=== PATIENT | female | born 1995 | race Two or more races ===

== ENCOUNTER 2020-01-20 13:55 | Emergency (ER) | payer MEDICAID, SELFPAY ==
[2020-01-20 16:10] VITALS: BP 110/64; PULSE 70; RESP 16; TEMP 37.2; O2SAT 100; BMI 25.4
--- NOTE | 2020-01-20 16:10 | ED_ITS ---
HPI - Weakness General Chief complaint: Weakness Stated complaint: feeling weak Time Seen by Provider: 01/20/20 16:10 Source: patient Mode of arrival: ambulatory Limitations: no limitations History of Present Illness HPI Narrative: 10 days ago had a possible test and then had spotting for 2 days Complaint: generalized weakness Onset (ago): day(s) (7) Duration: constant Severity: mild Relieving factors: none Exacerbating factors: none Related Data Allergies Allergy/AdvReac Type Severity Reaction Status Date / Time No Known Allergies Allergy Unverified 01/06/20 18:07 Review of Systems Constitutional: Constitutional: Reports no additional constitutional complaints Eyes: Eyes: Reports no additional eye complaints ENT: Denies dizziness Cardiovascular: Cardiovascular: Reports no additional cardiovascular complaints Respiratory: Respiratory: Reports no additional respiratory complaints Gastrointestinal: Gastrointestinal: Reports no additional gastrointestinal complaints Genitourinary: Genitourinary: Reports no additional female genitourinary complaints Musculoskeletal: Musculoskeletal: Reports no additional musculoskeletal complaints Integumentary/Breasts: Skin/Breast: Denies rash Neurologic: Reports system reviewed and no additional complaints, except as documented, Denies dizziness and Denies Sensory deficit (Neuro) Psychiatric: Psychiatric: Denies anxiety [facility] Past Medical History Medical History Anemia delivery delivered Hernia Surgical History Hx of appendectomy Social History Social History Alcohol intake: never Smoking Status: Never smoker Use of substances other than those prescribed or required for medical reasons: No Advance Directives: No Advance Directives Information Provided: No Physical Exam Vital Signs and I&O and Narrative: Vital Signs and I&O: Vital Signs Temp 99.0 F 01/20/20 16:10 Pulse 70 01/20/20 16:10 Resp 16 01/20/20 16:10 BP 110/64 01/20/20 16:10 Pulse Ox 100 01/20/20 16:10 Intake & Output 01/19/20 01/20/20 01/20/20 18:59 06:59 18:59 Weight 58.967 kg Body Mass Index 25.4 Const: General: healthy appearing Nutritional Appearance: average body habitus Orientation/consciousness: oriented to person and patient oriented x3 Limitations: no limitations HENMT: Head: Yes normal to inspection Ears: external ears normal and TM's normal bilaterally General nose exam: Normal external nose present Mouth: Normal oral and palatal mucosa present and oropharynx normal Throat: Yes posterior oropharynx normal Eyes: General: appearance normal, both eyes and all related structures Neck: Other: supple Neck: Yes normal visual inspection Chest: Chest palpation & inspection: normal inspection of the chest Resp: Auscultation: clear to auscultation bilaterally Cardio: Jugular venous distension: no JVD Rate: regular rate Rhythm: regular rhythm Heart sounds: S1 normal heart sound present and S2 normal heart sound present GI: Inspection: Yes normal to inspection Palpation (GI): Soft to palpation, nontender and No hepatosplenomegaly present Auscultation: normal bowel sounds : General: Yes no CVA tenderness Back/Spine/Pelvis: Back: no CVA tenderness Skin: General skin exam: no rashes or lesions noted Neuro: General: oriented to person and patient oriented x3 Cranial nerves: Yes CN's II-XII intact bilaterally Motor exam (neuro): 5/5 motor strength present throughout Sensory Exam: No Sensory deficit (Neuro) Extrem: General: Yes normal to inspection Psych: Appearance: grossly normal Course Reevaluation(s) Reevaluation #1: patient with continued anemia, not new, not will dc home Time: 18:00 MDM - Weakness MDM Narrative Medical decision making narrative: patient not , has chronic anemia Medical Records Attestation: I reviewed the patient's medical records. Lab Data Attestation: I reviewed the patient's lab results. Result diagrams: 01/20/20 16:46 01/20/20 16:46 Labs: Lab Results 01/20/20 01/20/20 01/20/20 Range/Units 16:37 16:46 16:46 WBC 6.7 (4.8-10.8) X10*3/uL RBC 3.62 L (4.20-5.50) X10*6/uL Hgb 11.2 L (12.0-16.0) g/dl Hct 33.9 L (37-47) % MCV 93.6 (80-98) fL MCH 30.9 (27.0-33.0) pg MCHC 33.0 (31.0-35.0) g/dl RDW 12.0 (11.0-16.0) % Plt Count 216 (160-400) X10*3/uL MPV 10.0 (9.4-12.3) fL Immature Gran % (Auto) 0.3 (0.0-0.4) % Neut % (Auto) 57.8 (45-73) % Lymph % (Auto) 33.0 (20-40) % Richardson % (Auto) 7.0 (2-11) % Eos % (Auto) 1.5 (0-4) % Baso % (Auto) 0.4 (0-2) % Neut # (Auto) 3.9 (2.0-8.3) X10*3/uL Lymph # (Auto) 2.2 (1.2-4.9) X10*3/uL Richardson # (Auto) 0.5 (0.1-1.2) X10*3/uL Eos # (Auto) 0.1 (0.0-0.4) X10*3/uL Baso # (Auto) 0.0 (0.0-0.2) X10*3/uL Abs Immat Gran (auto) 0.02 (0.00-0.03) X10*3/uL Absolute Nucleated RBC 0.000 (0.0-0.012) X10*3/uL Nucleated RBC % (auto) 0.0 (0.0-0.2) /100WBC Sodium 140 (135-145) mmol/L Potassium 4.2 (3.3-5.1) mmol/l Chloride 107 (96-108) mmol/L Carbon Dioxide 27 (22-29) mmol/L Anion Gap 10 L (12-20) BUN 12 (9-16) mg/dL Creatinine 0.71 (0.5-1.4) mg/dL Estim Creat Clear Calc 98.1 Estimated GFR > 60 Random Glucose 81 (60-115) mg/dL Calcium 8.9 (8.4-10.2) mg/dL Urine Color YELLOW Urine Appearance CLEAR Urine pH 6.0 (5.0-8.0) Ur Specific [place] >= 1.030 H (1.005-1.025) Urine Protein NEG (NEG-TRACE) MG/DL Urine Glucose (UA) NEG (NEG) MG/DL Urine Ketones NEG (NEG) MG/DL Urine Blood NEG (NEG) Urine Nitrite NEG (NEG) Ur Leukocyte Esterase NEG (NEG) Urine Test NEGATIVE (NEGATIVE) Discharge Plan Discharge Clinical Impression: Anemia Patient Disposition: Home, Self-Care Additional Instructions: may take a multivitamin with iron for your anemia
[2020-01-20 16:55] LABS: Glucose Urine UA NEG (NEG); Leukocyte Esterase Urine NEG (NEG); Nitrite Urine NEG (NEG); Specific Gravity - Urine >= 1.030 (1.005-1.025); Urine Blood NEG (NEG); Urine Ketones NEG (NEG); Urine Protein NEG (NEG-TRACE)
[2020-01-20 16:56] LABS: MANUAL DIFF FLAG NO
[2020-01-20 16:57] LABS: Basophils Percent Auto 0.4 % (0-2); Eosinophils Absolute Auto 0.1 X10*3/uL (0.0-0.4); Eosinophils Percent Auto 1.5 % (0-4); Hematocrit 33.9 % (37-47); Hemoglobin 11.2 g/dl (12.0-16.0); Imm Gran Abs Auto 0.02 X10*3/uL (0.00-0.03); Imm Gran Pct Auto 0.3 % (0.0-0.4); Lymphocytes Absolute Auto 2.2 X10*3/uL (1.2-4.9); Mean Corpuscular Hemoglobin 30.9 pg (27.0-33.0); Mean Corpuscular Volume 93.6 fL (80-98); Monocytes Absolute Auto 0.5 X10*3/uL (0.1-1.2); Neutrophils Absolute Auto 3.9 X10*3/uL (2.0-8.3); Neutrophils Percent Auto 57.8 % (45-73); Platelet Count 216 X10*3/uL (160-400); Red Blood Count 3.62 X10*6/uL (4.20-5.50); White Blood Count 6.7 X10*3/uL (4.8-10.8)
[2020-01-20 17:12] LABS: Appearance Urine CLEAR; Color Urine YELLOW
[2020-01-20 17:13] LABS: UPreg QC Valid YES; Urine Pregnancy NEGATIVE (NEGATIVE)
[2020-01-20 17:27] LABS: Blood Urea Nitrogen 12 mg/dL (9-16); Calcium 8.9 mg/dL (8.4-10.2); Creatinine Clr Calc Pharmacy 98.1; Estimated Glomerular Filt Rate > 60; Glucose Random 81 mg/dL (60-115)
[2020-01-20 17:44] LABS: Anion Gap 10 (12-20); Carbon Dioxide 27 mmol/L (22-29); Chloride 107 mmol/L (96-108); Potassium 4.2 mmol/l (3.3-5.1); Sodium 140 mmol/L (135-145)
== END 2020-01-20 18:40 | disposition home or self-care (01) ==
PROVIDERS: Emergency Provider Emergency Medicine; PCP Internal Medicine
DX: D64.9 Anemia, unspecified (principal); R53.1 Weakness
CPT/HCPCS: 36415; 80048; 81003; 81025; 85025; 99283

== ENCOUNTER 2020-09-10 20:15 | Emergency (ER) | payer MEDICAID, SELFPAY ==
[2020-09-10 20:55] VITALS: BP 110/54; PULSE 59; RESP 18; TEMP 36.7; O2SAT 100; BMI 22.4
[2020-09-10 21:26] LABS: MANUAL DIFF FLAG NO
[2020-09-10 21:27] LABS: Basophils Percent Auto 0.4 % (0-2); Eosinophils Absolute Auto 0.2 X10*3/uL (0.0-0.4); Eosinophils Percent Auto 2.5 % (0-4); Hematocrit 33.5 % (37-47); Hemoglobin 11.4 g/dl (12.0-16.0); Imm Gran Abs Auto 0.02 X10*3/uL (0.00-0.03); Imm Gran Pct Auto 0.3 % (0.0-0.4); Lymphocytes Absolute Auto 2.7 X10*3/uL (1.2-4.9); Lymphocytes Percent Auto 37.3 % (20-40); Mean Corpuscular Hemoglobin 31.8 pg (27.0-33.0); Mean Corpuscular Volume 93.6 fL (80-98); Mean Platelet Volume 10.3 fL (9.4-12.3); Monocytes Absolute Auto 0.4 X10*3/uL (0.1-1.2); Neutrophils Absolute Auto 3.8 X10*3/uL (2.0-8.3); Neutrophils Percent Auto 53.5 % (45-73); Platelet Count 215 X10*3/uL (160-400); Red Blood Count 3.58 X10*6/uL (4.20-5.50); Red Cell Distribution Width 12.3 % (11.0-16.0); White Blood Count 7.2 X10*3/uL (4.8-10.8)
--- NOTE | 2020-09-10 21:42 | ED_ITS ---
HPI - Female Genitourinary General Chief complaint: General Medical Stated complaint: Personal Time Seen by Provider: 09/10/20 21:41 Source: patient Mode of arrival: ambulatory Limitations: no limitations History of Present Illness HPI Narrative: chronic L pelvic pain with periods, checking to see if she is anemic hx of same in past x 3 years, has had chronic bump L lateral incision x 3 years MD elicited complaint: pelvic pain Onset (ago): day(s) (2) Location of symptoms: suprapubic Severity: mild Quality of pain: cramping Consistency: constant Vaginal discharge: none Vaginal bleeding: scant Exacerbating factors: none Relieving factors: none Associated symptoms: denies other symptoms Treatment prior to arrival: none Related Data Previous Rx's Medication Instructions Recorded cyclobenzaprine 10 mg PO TID PRN #14 tab 09/10/20 ibuprofen 600 mg PO Q6H PRN #30 tab 09/10/20 nitrofurantoin monohyd/m-cryst 100 mg PO BID 7 Days #14 cap 09/10/20 [Macrobid] Allergies Allergy/AdvReac Type Severity Reaction Status Date / Time No Known Allergies Allergy Unverified 01/06/20 18:07 Review of Systems Review of Systems: Constitutional : No Weight loss, No Fever, No Chills ENT/Mouth : No sore throat, No Rhinorrhea Eyes: No Swelling, No Redness Cardiovascular : No Chest Pain, No SOB, NoEdema Respiratory : No Cough, No Sputum, No Wheezing Gastrointestinal : no Nausea, no Vomiting, no Diarrhea, positive abdominal Pain, No Hematochezia, No Melena Genitourinary : No Dysuria, No Urinary Frequency, No Hematuria, No Urgency Musculoskeletal : No joint pain, No Myalgias, No Joint Swelling Skin : No Skin Lesions, No rash Neuro : No Weakness, No Numbness, No Dizziness, No Headache Psych : No Anxiety/Panic, No Depression Heme/Lymph: No Bruising, No Lymphadenopathy Endocrine : No Polyuria, No Polydipsia All other systems reviewed and are negative. [facility] Past Medical History Attestation statement: The following information was validated with the patient. Medical History Anemia delivery delivered Hernia Surgical History Hx of appendectomy Social History Social History Alcohol intake: never Smoking Status: Never smoker Advance Directives: No Advance Directives Information Provided: Yes Patient : No Physical Exam Vital Signs: Vital Signs: Last Vital Signs Temp 98.0 F 09/10/20 20:55 Pulse 59 09/10/20 20:55 Resp 18 09/10/20 20:55 BP 110/54 L 09/10/20 20:55 Pulse Ox 100 09/10/20 20:55 Body Mass Index 22.4 Appearance: Alert. Oriented X3. No acute distress. Eyes: Pupils equal, round and reactive to light. ENT: Pharynx normal. Neck: Normal inspection. Neck supple. CVS: Normal heart rate and rhythm. Pulses normal. Respiratory: No respiratory distress. Breath sounds normal. Abdomen: Soft and nontender. L lateral c section scar mild seroma noted no fluctuance no abscess no erythema Skin: Skin warm and dry. Normal skin color. Normal skin turgor. Extremities: No lower extremity edema. No calf ttp Neuro: Oriented X 3. No motor deficit. No sensory deficit. MDM - Female Genitourinary MDM Narrative Medical decision making narrative: 25 yo female hx of anemia with menses, HD stable today not anemic very happy, also has UTI, chronic pain at her c section scar likely seroma - at this time refer to CERTIFIED NURSE PRACTITIONER, treat UTI, stable for DC Lab Data Result diagrams: 09/10/20 21:18 09/10/20 21:18 Labs: Lab Results 09/10/20 09/10/20 09/10/20 Range/Units 21:18 21:18 21:18 WBC 7.2 (4.8-10.8) X10*3/uL RBC 3.58 L (4.20-5.50) X10*6/uL Hgb 11.4 L (12.0-16.0) g/dl Hct 33.5 L (37-47) % MCV 93.6 (80-98) fL MCH 31.8 (27.0-33.0) pg MCHC 34.0 (31.0-35.0) g/dl RDW 12.3 (11.0-16.0) % Plt Count 215 (160-400) X10*3/uL MPV 10.3 (9.4-12.3) fL Immature Gran % (Auto) 0.3 (0.0-0.4) % Neut % (Auto) 53.5 (45-73) % Lymph % (Auto) 37.3 (20-40) % [place] % (Auto) 6.0 (2-11) % Eos % (Auto) 2.5 (0-4) % Baso % (Auto) 0.4 (0-2) % Lymph # (Auto) 2.7 (1.2-4.9) X10*3/uL [place] # (Auto) 0.4 (0.1-1.2) X10*3/uL Eos # (Auto) 0.2 (0.0-0.4) X10*3/uL Baso # (Auto) 0.0 (0.0-0.2) X10*3/uL Abs Immat Gran (auto) 0.02 (0.00-0.03) X10*3/uL Absolute Neuts (auto) 3.8 (2.0-8.3) X10*3/uL Absolute Nucleated RBC 0.000 (0.0-0.012) X10*3/uL Nucleated RBC % (auto) 0.0 (0.0-0.2) /100WBC Sodium 141 (135-145) mmol/L Potassium 3.5 (3.3-5.1) mmol/L Chloride 107 (96-108) mmol/L Carbon Dioxide 27 (22-29) mmol/L Anion Gap 11 L (12-20) BUN 10 (9-16) mg/dL Creatinine 0.75 (0.5-1.4) mg/dL Estim Creat Clear Calc 82.3 Estimated GFR > 60 Random Glucose 81 (60-115) mg/dL Calcium 8.9 (8.4-10.2) mg/dL Urine Color YELLOW Urine Appearance HAZY Urine pH 6.0 (5.0-8.0) Ur Specific [place] >= 1.030 H (1.005-1.025) Urine Protein TRACE (NEG-TRACE) MG/DL Urine Glucose (UA) NEG (NEG) MG/DL Urine Ketones 5 (NEG) MG/DL Urine Blood 3+ H (NEG) Urine Nitrite POS H (NEG) Ur Leukocyte Esterase NEG (NEG) Urine RBC 15-29 H (0) /HPF Urine WBC 1-4 (0-4) /HPF Ur Squamous Epith Cells NONE /LPF Urine Bacteria 4+ /LPF Discharge Plan Discharge Clinical Impression: Dysmenorrhea, Seroma UTI (urinary tract infection) Qualifiers: Urinary tract infection type: acute cystitis Hematuria presence: with hematuria Qualified Code(s): N30.01 - Acute cystitis with hematuria Patient Disposition: Home, Self-Care Instructions: Dysmenorrhea (ED), Urinary Tract Infection in Women (ED) Additional Instructions: return to ED for any worsening symptoms or concerns please follow up with your OBGYN Prescriptions: New cyclobenzaprine 10 mg tablet 10 mg PO TID PRN (Reason: muscle spasm) Qty: 14 RF: 0 ibuprofen 600 mg tablet 600 mg PO Q6H PRN (Reason: pain) Qty: 30 RF: 0 nitrofurantoin monohyd/m-cryst [Macrobid] 100 mg capsule 100 mg PO BID 7 Days Qty: 14 RF: 0
[2020-09-10 21:45] LABS: Appearance Urine HAZY; Color Urine YELLOW; Glucose Urine UA NEG (NEG); Leukocyte Esterase Urine NEG (NEG); Nitrite Urine POS (NEG); Specific Gravity - Urine >= 1.030 (1.005-1.025); UACC Culture Trigger YES; Urine Blood 3+ (NEG); Urine Ketones 5 MG/DL (NEG); Urine Protein TRACE MG/DL (NEG-TRACE)
[2020-09-10 21:51] LABS: Bacteria Urine 4+ /LPF; UACC CULT YES
[2020-09-10 21:55] LABS: Anion Gap 11 (12-20); Blood Urea Nitrogen 10 mg/dL (9-16); Calcium 8.9 mg/dL (8.4-10.2); Carbon Dioxide 27 mmol/L (22-29); Chloride 107 mmol/L (96-108); Creatinine Clr Calc Pharmacy 82.3; Estimated Glomerular Filt Rate > 60; Glucose Random 81 mg/dL (60-115); Potassium 3.5 mmol/L (3.3-5.1); Sodium 141 mmol/L (135-145)
[2020-09-10 22:20] VITALS: BP 116/62; PULSE 62; RESP 18; O2SAT 97
[2020-09-10] MEDS: Nitrofurantoin Monohyd/M-Cryst 100 MG CAPSULE PO (22:27)
[2020-09-10] MEDS: Ibuprofen 600 MG TABLET PO (22:27)
== END 2020-09-10 22:40 | disposition home or self-care (01) ==
LOC: HO.ED 22:04
PROVIDERS: Emergency Provider Emergency Medicine; PCP Internal Medicine
DX: N94.4 Primary dysmenorrhea (principal); N30.01 Acute cystitis with hematuria; Z79.899 Other long term (current) drug therapy
CPT/HCPCS: 36415; 80048; 81001; 85025; 87086; 87088; 87186; 99284

== ENCOUNTER 2020-09-19 09:36 | Outpatient (REF) | payer MEDICAID, SELFPAY ==
--- NOTE | ~2020-09-19 | US_ITS ---
EXAMINATION: US PELVIS, LIMITED/FOLLOW UP CLINICAL INFORMATION: Worsening pain after section COMPARISON: Previous CT of the abdomen and pelvis September 2018 TECHNIQUE: Grayscale and color imaging of the left lower quadrant abdominal wall using a linear transducer FINDINGS: There is a hypoechoic slightly heterogeneous solid mass with minimal peripheral vascularity corresponding to palpable abnormality in the lower abdominal wall. This measures 2.2 x 1.3 x 1.5 cm. Appearance is nonspecific. Differential would include endometriosis related to previous section, old resolving hematoma or abscess, and desmoid tumor. This would be amenable to percutaneous ultrasound-guided biopsy if clinically indicated. No hernia is seen. US/US pelvic limited IMPRESSION: 2.2 x 1.3 x 1.5 cm heterogeneous hypoechoic soft tissue mass in the lower quadrant abdominal wall. Differential would include endometriosis related to previous surgery, old hematoma or abscess, and desmoid tumor. This would be amenable to ultrasound-guided biopsy if clinically indicated.
== END 2020-09-19 09:37 | disposition home or self-care (01) ==
LOC: HO.US 09:36
PROVIDERS: PCP Internal Medicine; Visit Provider Nurse Practitioner Primary Care
DX: R10.32 Left lower quadrant pain (principal); R19.04 Left lower quadrant abdominal swelling, mass and lump
CPT/HCPCS: 76857

== ENCOUNTER 2020-11-15 22:46 | Emergency (ER) | payer MEDICAID, SELFPAY ==
[2020-11-15 23:04] VITALS: BP 109/66; PULSE 55; RESP 18; TEMP 36.9; O2SAT 99; BMI 23.4
--- NOTE | 2020-11-16 01:09 | ED.GENADULT ---
HPI - General Adult General Chief complaint: General Medical Stated complaint: Lump on Time Seen by Provider: 11/16/20 01:09 Source: patient Mode of arrival: ambulatory Limitations: no limitations History of Present Illness HPI narrative: 25 y/o female presenting with ongoing painful mass on the left lateral aspect of her scar. She has had 2 c-sections and after her second one 3 years ago she has had a painful lump on the lateral aspect of the scar. She has had two ultrasounds of the lump with initial plans for biopsy and then plan for resection. She missed her appointment 3 days ago with her surgeon. She has been taking motrin and tylenol with no improvement in the pain. She states the pain is significantly worse when she has her menses. She denies skin changes or redness. No drainage. No fevers. She reports the pain as burning and aching. MD complaint: painful mass Onset (ago): year(s) (3) Location: abdomen Radiation: non-radiation Severity: severe Severity scale (1-10): 9 Quality: burning Pain Consistency: constant Relieving factors: none Exacerbating factors: movement Associated symptoms: denies other symptoms Treatments prior to arrival: NSAID Related Data Previous Rx's Medication Instructions Recorded cyclobenzaprine 10 mg tablet 10 mg PO TID PRN #14 tab 09/10/20 ibuprofen 600 mg tablet 600 mg PO Q6H PRN #30 tab 09/10/20 nitrofurantoin 100 mg PO BID 7 Days #14 cap 09/10/20 monohydrate/macrocrystals 100 mg capsule (Macrobid) tramadol 50 mg tablet 50 mg PO Q8H PRN #5 tab 11/16/20 Allergies Allergy/AdvReac Type Severity Reaction Status Date / Time No Known Allergies Allergy Verified 11/15/20 23:04 Review of Systems Review of Systems: Constitutional: No Fever, No Chills Respiratory: No Cough, No Sputum Gastrointestinal: No Nausea, No Vomiting, No Diarrhea, + abdominal Pain Genitourinary: No Dysuria, No Urinary Frequency, No Hematuria Musculoskeletal: No joint pain, No Myalgias Skin: + Skin Lesions, No rash Psych: + Anxiety/Panic, No Depression Heme/Lymph: No Bruising, No Lymphadenopathy PMFSH Past Medical History Medical History Anemia delivery delivered Hernia Surgical History Hx of appendectomy Social History Social History Alcohol intake: never Advance Directives: No Advance Directives Information Provided: No Patient : No Physical Exam Vital Signs: Vital Signs: Last Vital Signs Temp 98.5 F 11/15/20 23:04 Pulse 55 11/15/20 23:04 Resp 18 11/15/20 23:04 BP 109/66 11/15/20 23:04 Pulse Ox 99 11/15/20 23:04 Body Mass Index 23.4 Appearance: Alert. Oriented X3. No acute distress. Eyes: Pupils equal, round and reactive to light. ENT: Normal external inspection Neck: Normal inspection. Neck supple. CVS: Normal heart rate and rhythm. Pulses normal. Respiratory: No respiratory distress. Breath sounds normal. Abdomen: well healed caesaren section surgical scar in the pelvic region. palpable 2cm soft tissue mass on the left lateral aspect with tenderness, no warmth or erythma Skin: Skin warm and dry. Normal skin color. Normal skin turgor. No rashes. Extremities: No lower extremity edema. Neuro: Oriented X 3. Nonfocal. Course Course Course Narrative: 25 y/o female presenting with ongoing painful soft tissue mass under the left lateral aspect of her scar. Recent ultrasound on 09/19 showed a 2.2x1.3x1.5 cm soft tissue mass ddx including endometriosis, hematoma, abscess or desmoid tumor. No signs of active infection at this time. Lesion is tender to touch. Pain is persistent despite tylenol and motrin around the clock. We discussed the need for following up with her surgeon for excision for definitive diagnosis and treatment. She expressed understanding. Will give very short course of tramadol for pain as it is keeping her from sleep. She otherwise appears well and is non-toxic. 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 She will call her surgeon tomorrow to see if she can expedite excision. Stable for d/c home. Discharge Plan Discharge Clinical Impression: Mass of soft tissue of abdomen Patient Disposition: Home, Self-Care Instructions: Soft Tissue Mass (ED) Additional Instructions: Your ultrasound from September showed a soft tissue mass in the area where you are having pain. This could be a wide variety of things and to determine what it is, you need to see your doctor for planned removal. The mass does not appear to be infected at this time. 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 Continue taking ibuprofen and tylenol as needed for pain. Take the prescribed pain medication as needed for severe pain. Call your doctor tomorrow. Prescriptions: New tramadol 50 mg tablet 50 mg PO Q8H PRN (Reason: pain) Qty: 5 RF: 0 No Action cyclobenzaprine 10 mg tablet 10 mg PO TID PRN (Reason: muscle spasm) Qty: 14 RF: 0 ibuprofen 600 mg tablet 600 mg PO Q6H PRN (Reason: pain) Qty: 30 RF: 0 nitrofurantoin monohyd/m-cryst [Macrobid] 100 mg capsule 100 mg PO BID 7 Days Qty: 14 RF: 0
== END 2020-11-16 01:58 | disposition home or self-care (01) ==
LOC: HO.ED 11-16 01:32
PROVIDERS: Emergency Provider Student in an Organized Health Care Education/Training Program; PCP Internal Medicine
DX: R19.04 Left lower quadrant abdominal swelling, mass and lump (principal); Z79.899 Other long term (current) drug therapy
CPT/HCPCS: 99283

== ENCOUNTER 2021-01-16 14:24 | Emergency (ER) | payer MEDICAID, SELFPAY ==
--- NOTE | 2021-01-16 14:45 | ED_ITS ---
HPI - URI/Sore Throat General Chief Complaint: General Medical Stated Complaint: body ache, fever, headache Time Seen by Provider: 01/16/21 14:43 Source: patient Mode of arrival: ambulatory Limitations: no limitations History of Present Illness HPI Narrative: 25 yo female here with complaints of subjective fevers, WAY, cough, sore throat since Friday. Not vaccinated for COVID. Related Data Previous Rx's Medication Instructions Recorded cyclobenzaprine 10 mg tablet 10 mg PO TID PRN #14 tab 09/10/20 ibuprofen 600 mg tablet 600 mg PO Q6H PRN #30 tab 09/10/20 nitrofurantoin 100 mg PO BID 7 Days #14 cap 09/10/20 monohydrate/macrocrystals 100 mg capsule (Macrobid) tramadol 50 mg tablet 50 mg PO Q8H PRN #5 tab 11/16/20 Allergies Allergy/AdvReac Type Severity Reaction Status Date / Time No Known Allergies Allergy Verified 11/15/20 23:04 Review of Systems Review of Systems: Yes all other systems are reviewed and are negative Constitutional: Constitutional: Reports no additional constitutional complaints, Denies body ache(s), Denies chills, Reports fever(s) (subjective ), Reports headache(s) and Denies weakness Eyes: Eyes: Reports no additional eye complaints and Denies change in vision ENT: Reports system reviewed and no additional complaints, except as documented, Denies dizziness, Reports headache(s), Denies nasal congestion, Denies nasal discharge, Denies neck pain and Reports sore throat Cardiovascular: Cardiovascular: Reports no additional cardiovascular complaints, Denies chest pain, Denies leg edema and Denies dyspnea Respiratory: Respiratory: Reports no additional respiratory complaints, Reports cough and Denies dyspnea Gastrointestinal: Gastrointestinal: Reports no additional gastrointestinal complaints, Denies abdominal pain, Denies diarrhea, Denies nausea and Denies vomiting Genitourinary: Genitourinary: Reports no additional female genitourinary complaints and Denies urinary incontinence Musculoskeletal: Musculoskeletal: Reports no additional musculoskeletal complaints, Denies back pain, Denies arthralgias, Denies joint swelling, Denies neck pain, Denies numbness and Denies tingling Integumentary/Breasts: Skin/Breast: Reports system reviewed and no additional complaints, except as docu and Denies rash Neurologic: Denies Abnormal speech present, Denies dizziness, Reports headache(s), Denies numbness, Denies tingling and Denies weakness [facility] Past Medical History Attestation statement: The following information was validated with the patient. Source: old records reviewed and nursing notes reviewed Medical History Anemia delivery delivered Hernia Surgical History Hx of appendectomy Social History Social History Alcohol intake: never Advance Directives: No Advance Directives Information Provided: Yes Patient : No Physical Exam Vital Signs: Vital Signs: Last Vital Signs Temp 98.3 F 01/16/21 14:46 Pulse 95 01/16/21 14:46 Resp 18 01/16/21 14:46 BP 111/73 01/16/21 14:46 Pulse Ox 99 01/16/21 14:46 Body Mass Index 23.4 Const: General: cooperative, healthy appearing, comfortable and no acute distress Orientation/consciousness: patient oriented x3 Limitations: no limitations HENMT: Head: Yes normal to inspection Ears: hearing grossly normal bilaterally and TM's normal bilaterally General nose exam: Normal external nose present Face and sinus: Yes normal facial exam Mouth: Normal oral and palatal mucosa present Throat: Yes posterior oropharynx normal, Yes tonsils normal and Yes uvula midline Eyes: General: appearance normal, both eyes and all related structures Pupils: Equal, round and reactive pupils present Neck: Neck: Yes normal visual inspection, Yes full ROM, Yes no lymphadenopathy and Yes no meningeal signs Chest: Chest palpation & inspection: normal inspection of the chest Resp: Effort & Inspection: normal respiratory effort Auscultation: clear to auscultation bilaterally Cardio: Rate: regular rate Rhythm: regular rhythm Peripheral pulses: Peripheral pulses 2+ throughout GI: Inspection: Yes normal to inspection Palpation (GI): Soft to palpation and nontender Auscultation: normal bowel sounds Back/Spine/Pelvis: Thoracic/Lumbar Spine: thoracic and lumbar spine normal to inspection Skin: General skin exam: no rashes or lesions noted Neuro: General: patient oriented x3, no meningeal signs, no focal motor deficits and normal sensation to monofilament Cranial nerves: Yes Equal, round and reactive pupils present Cognition (Neuro): normal cognition Speech: No Abnormal speech present Gait exam (Neuro): Normal gait present Motor exam (neuro): 5/5 motor strength present throughout Extrem: General: Yes normal to inspection, Yes no pedal edema and Yes no calf tenderness Course Course Course Narrative: URI symptoms since Friday. Will send covid screen. 1520-COVID screen positive. Patient well-appearing. Vital stable. Reviewed quarantine guidelines. Reviewed worrisome signs and symptoms when to return to the emergency department. Comfortable discharge home. MDM - URI/Sore Throat Lab Data Labs: Lab Results 01/16/21 Range/Units 14:51 COVID-19 ([facility]) Positive A (Negative) COVID-19 Clin Com See Note Discharge Plan Discharge Clinical Impression: COVID-19 Patient Disposition: Home, Self-Care Instructions: COVID-19 (Coronavirus Disease 2019) (ED) Additional Instructions: Increase fluids, rest Take Motrin or Tylenol for pain or fever You must quarantine until 01/23 Prescriptions: No Action tramadol 50 mg tablet 50 mg PO Q8H PRN (Reason: pain) Qty: 5 RF: 0 cyclobenzaprine 10 mg tablet 10 mg PO TID PRN (Reason: muscle spasm) Qty: 14 RF: 0 ibuprofen 600 mg tablet 600 mg PO Q6H PRN (Reason: pain) Qty: 30 RF: 0 nitrofurantoin monohyd/m-cryst [Macrobid] 100 mg capsule 100 mg PO BID 7 Days Qty: 14 RF: 0 Referrals: Janki George MD [Primary Care Provider] - 2 days
[2021-01-16 14:46] VITALS: BP 111/73; PULSE 95; RESP 18; TEMP 36.8; O2SAT 99; BMI 23.4
[2021-01-16 15:14] LABS: COVID-19 Test Positive (Negative)
== END 2021-01-16 15:34 | disposition home or self-care (01) ==
PROVIDERS: Nurse Practitioner Family; Emergency Provider Emergency Medicine; PCP Internal Medicine
DX: U07.1 COVID-19 (principal); M79.10 Myalgia, unspecified site; R51.9 Headache, unspecified; R05 Cough; Z79.899 Other long term (current) drug therapy
CPT/HCPCS: 36415; 87635; 99283

== ENCOUNTER → 2021-04-26 14:39 | Outpatient (BNVA) | payer MEDICAID, SELFPAY | PROVIDERS: PCP Internal Medicine; Referring Provider Internal Medicine; Visit Provider Surgery | DX: R19.09 Other intra-abdominal and pelvic swelling, mass and lump (principal); Z87.19 Personal history of other diseases of the digestive system | CPT/HCPCS: 99202 ==

== ENCOUNTER 2021-05-29 11:00 | Outpatient (RCR) | payer MEDICAID, SELFPAY | END 2021-07-06 08:51 | disposition home or self-care (01) | LOC: HO.PT 11:00 | PROVIDERS: PCP Internal Medicine; Visit Provider General Practice | DX: M54.50 Low back pain, unspecified (principal) | CPT/HCPCS: 97110; 97140; 97161; 97530 ==

== ENCOUNTER 2021-06-05 12:28 | Outpatient (REF) | payer MEDICAID, SELFPAY ==
--- NOTE | ~2021-06-05 | US_ITS ---
EXAMINATION: US ABDOMEN LIMITED CLINICAL INFORMATION: Ventral hernia, bulge. Rule out recurrent hernia versus laxity of mesh. COMPARISON: CT abdomen and pelvis 10/02/2018. Ultrasound abdomen 12/13/2014 TECHNIQUE: Real-time imaging of the supraumbilical area. FINDINGS: No abdominal wall hernia or fluid collection is seen. There is linear echogenic material with acoustic shadowing seen in this region suggestive of postsurgical change/mesh. US/US abdomen limited IMPRESSION: No recurrent hernia or fluid collection seen.
== END 2021-06-05 12:29 | disposition home or self-care (01) ==
LOC: HO.US 12:28
PROVIDERS: PCP Internal Medicine; Visit Provider Surgery
DX: K43.9 Ventral hernia without obstruction or gangrene (principal)
CPT/HCPCS: 76705

== ENCOUNTER → 2021-06-14 09:01 | Outpatient (BNVA) | payer MEDICAID, SELFPAY | PROVIDERS: PCP Internal Medicine; Referring Provider Internal Medicine; Visit Provider Surgery | DX: K43.9 Ventral hernia without obstruction or gangrene (principal) | CPT/HCPCS: 99212 ==

== ENCOUNTER 2021-08-12 11:39 | Emergency (ER) | payer MEDICAID, SELFPAY ==
--- NOTE | ~2021-08-12 | XR_ITS ---
EXAMINATION: XR CHEST CLINICAL INFORMATION: Exertional dyspnea COMPARISON: Previous chest x-ray February 2019 TECHNIQUE: Frontal view of the chest was obtained. FINDINGS: No significant abnormality is noted involving the heart, lungs, mediastinum, bony thorax or soft tissues. XR/XR chest 1V IMPRESSION: Unremarkable examination.
[2021-08-12 12:05] VITALS: BP 113/67; PULSE 61; RESP 19; TEMP 36.9; O2SAT 98; BMI 23.4
[2021-08-12 12:41] LABS: COVID-19 Test Negative (Negative); IDNOW Serial# 55D5AD1C
[2021-08-12 12:42] VITALS: TEMP 36.4
[2021-08-12 12:59] LABS: Influenza A Negative (Negative); Influenza B2 Negative (Negative)
--- NOTE | 2021-08-12 13:01 | ECG_ITS ---
Test Reason : DIZZINESS Blood Pressure : / mmHG Vent. Rate : 049 BPM Atrial Rate : 049 BPM P-R Int : 170 ms QRS Dur : 092 ms QT Int : 430 ms P-R-T Axes : 044 072 061 degrees QTc Int : 388 ms Sinus bradycardia with sinus arrhythmia Otherwise normal ECG When compared with ECG of 13-MAR-2019 01:25, No significant change was found Referred By: Kaylynn Mary Electronically Signed By:NARENDRA ROSEN
[2021-08-12 13:25] LABS: MANUAL DIFF FLAG NO
[2021-08-12] MEDS: 0.9 % Sodium Chloride 1,000 ML 999 ML IV (13:26)
[2021-08-12 13:36] LABS: Basophils Percent Auto 0.2 % (0-2); Eosinophils Absolute Auto 0.1 X10*3/uL (0.0-0.4); Eosinophils Percent Auto 2.6 % (0-4); Hematocrit 36.3 % (37.0-47.0); Hemoglobin 12.1 g/dl (12.0-16.0); Imm Gran Abs Auto 0.01 X10*3/uL (0.00-0.03); Imm Gran Pct Auto 0.2 % (0.0-0.4); Lymphocytes Absolute Auto 2.4 X10*3/uL (1.2-4.9); Lymphocytes Percent Auto 44.9 % (20-40); Mean Corpuscular HGB Conc 33.3 g/dl (31.0-35.0); Mean Corpuscular Hemoglobin 30.7 pg (27.0-33.0); Mean Corpuscular Volume 92.1 fL (80.0-98.0); Mean Platelet Volume 9.8 fL (9.4-12.3); Monocytes Absolute Auto 0.3 X10*3/uL (0.1-1.2); Monocytes Percent Auto 5.7 % (2-11); Neutrophils Absolute Auto 2.5 x10*3/uL (2.0-8.3); Neutrophils Percent Auto 46.4 % (45-73); Platelet Count 217 X10*3/uL (160-400); Red Blood Count 3.94 X10*6/uL (4.20-5.50); Red Cell Distribution Width 12.6 % (11.0-16.0); White Blood Count 5.4 X10*3/uL (4.8-10.8)
[2021-08-12 13:38] VITALS: BP 112/59; BP 118/71; PULSE 47; PULSE 51
[2021-08-12 13:39] VITALS: BP 120/75; PULSE 54
[2021-08-12 13:53] LABS: Alanine Aminotransferase 11 U/L (0-31); Albumin Level 4.3 g/dL (3.5-5.0); Alkaline Phosphatase 75 U/L (39-117); Anion Gap 11 (12-20); Aspartate Amino Transferase 13 U/L (5-31); Bilirubin Direct 0.4 mg/dL (0.0-0.5); Bilirubin Total 1.1 mg/dL (0.0-1.0); Blood Urea Nitrogen 9 mg/dL (9-16); Calcium 9.4 mg/dL (8.4-10.2); Carbon Dioxide 25 mmol/L (22-29); Chloride 106 mmol/L (96-108); Creatinine Clr Calc Pharmacy 81.3; Estimated Glomerular Filt Rate > 60; Glucose Random 89 mg/dL (60-115); Magnesium 2.1 mg/dL (1.6-2.6); Potassium 4.1 mmol/L (3.3-5.1); Sodium 138 mmol/L (135-145)
--- NOTE | 2021-08-12 14:34 | ED_ITS ---
HPI - General Adult General Chief complaint: General Medical Stated complaint: Weakness/Body aches Time Seen by Provider: 08/12/21 12:57 Source: patient Mode of arrival: ambulatory History of Present Illness HPI narrative: 25-year-old female with a past medical history of anemia, hernia, s/p appendectomy, presenting to the ED complaining generalized fatigue/weakness, body aches, myalgias, intermittent lightheadedness, and diarrhea x today. Also reports exertional SOB. Denies fever, chills, chest pain, recent travel, pedal edema, calf pain, ear pain, sore throat, syncope Onset (ago): day(s) Related Data Home Medications Medication Instructions Recorded Confirmed quetiapine 50 mg tablet 50 mg PO BEDTIME 04/26/21 06/14/21 Previous Rx's Medication Instructions Recorded cyclobenzaprine 10 mg tablet 10 mg PO TID PRN #14 tab 09/10/20 ibuprofen 600 mg tablet 600 mg PO Q6H PRN #30 tab 09/10/20 nitrofurantoin 100 mg PO BID 7 Days #14 cap 09/10/20 monohydrate/macrocrystals 100 mg capsule (Macrobid) tramadol 50 mg tablet 50 mg PO Q8H PRN #5 tab 11/16/20 Allergies Allergy/AdvReac Type Severity Reaction Status Date / Time No Known Allergies Allergy Verified 11/15/20 23:04 Review of Systems Review of Systems: Constitutional: No Fever, No Chills, + Fatigue, + Malaise ENT/Mouth: No Ear Pain, No Nasal Congestion, No Sinus Pain, No Hoarseness, No sore throat, + Rhinorrhea, No Swallowing Difficulty Eyes: No Eye Pain, No Swelling, No Redness, No Vision Changes Cardiovascular: No Chest Pain, No SOB, No Dyspnea on Exertion, No Orthopnea, No Edema, No Palpitations Respiratory: No Cough, No Sputum, No Dyspnea Gastrointestinal: No Nausea, No Vomiting, + Diarrhea, No Constipation, No Abdominal pain Genitourinary: No irregular bleeding, No Dysuria, No Urinary Frequency, No Hematuria, No Flank Pain, No Urinary Flow Changes, No Hesitancy Musculoskeletal: No joint pain, + Myalgias, No Joint Swelling Skin: No Skin Lesions, No rash Neuro: + Weakness, No Numbness, No Paresthesias, No Loss of Consciousness, +intermittent lightheadedness, + Headache Yes all other systems are reviewed and are negative Neurologic: Denies Abnormal speech present [facility] Past Medical History Attestation statement: The following information was validated with the patient. Medical History Anemia delivery delivered Hernia Surgical History History of delivery (02/2013) History of hemorrhoidectomy (2015) History of umbilical hernia repair (11/17/13) History of ventral hernia repair (2018) Hx of appendectomy Family History Family History Father No problems noted. Mother No problems noted. Maternal Grandfather Cancer of unknown origin Social History Social History Alcohol intake: never Patient Tobacco Use Status: Never used Tobacco Advance Directives: No Advance Directives Information Provided: No Patient : No Physical Exam ED Vital Signs: Vital Signs - 24 hr 08/12/21 12:05 08/12/21 12:42 08/12/21 13:38 Temperature 98.4 F 97.6 F Pulse Rate 61 51 Respiratory Rate 19 Blood Pressure 113/67 118/71 Pulse Oximetry 98 08/12/21 13:39 Temperature Pulse Rate 54 Respiratory Rate Blood Pressure 120/75 Pulse Oximetry BMI result Body Mass Index 23.4 Const General: cooperative, healthy appearing, no acute distress, well developed, alert and awake Orientation/consciousness: patient oriented x3 Limitations: no limitations HENMT Head: Yes normal to inspection and Yes atraumatic Ears: hearing grossly normal bilaterally, external ears normal and TM's normal bilaterally General nose exam: Normal external nose present Face and sinus: Yes normal facial exam Mouth: Normal oral and palatal mucosa present Throat: Yes posterior oropharynx normal, Yes tonsils normal, Yes uvula midline and No peritonsillar mass Eyes General: appearance normal, both eyes and all related structures EOM: EOMs intact bilaterally Neck Neck: Yes normal visual inspection and Yes no meningeal signs Resp Effort & Inspection: normal respiratory effort and no respiratory distress Auscultation: clear to auscultation bilaterally, no rales, no rhonchi and no whe ezes Cardio Rate: regular rate Heart sounds: S1 normal heart sound present and S2 normal heart sound present GI Inspection: Yes normal to inspection Palpation (GI): Soft to palpation, nontender, no guarding and not rigid General: Yes no CVA tenderness Back/Spine/Pelvis Back: no CVA tenderness Skin Rashes: no rashes Wounds: no wounds Neuro General: patient oriented x3, gait normal, tone normal, moves all extremities, no meningeal signs, no focal motor deficits and CN's II-XI intact bilaterally Cranial nerves: Yes CN's II-XII intact bilaterally Cognition (Neuro): normal cognition Speech: No Abnormal speech present Gait exam (Neuro): Normal gait present Motor exam (neuro): 5/5 motor strength present throughout Extrem General: Yes normal to inspection Course Course Course Narrative: -1434--no leukocytosis. H&H stable. Labs otherwise unremarkable. COVID-19 and influenza negative XR chest 1V IMPRESSION: Unremarkable examination. -orthostatic vital signs negative -UA with 1+ leuk esterase, otherwise not infected Results discussed with patient including worrisome signs and symptoms and strict return precautions and need close follow-up with PCP. She verbalized understanding and feels safe to return home at this time Medical Decision Making MDM Narrative Medical decision making narrative: 25-year-old female with a past medical history of anemia, hernia, s/p appendectomy, presenting to the ED complaining generalized fatigue/weakness, body aches, myalgias, intermittent lightheadedness, and diarrhea x today. On exam VSS, NAD, well appearing, nontoxic, lungs CTA, abdomen soft/nontender, no focal neuro deficits. Concern for viral illness including COVID-19/influenza vs dehydration vs anemia. Symptoms atypical for ACS/PE Plan: EKG, labs, UA, CXR, IVF, orthostatics, re-evaluate Medical Records Medical records reviewed: Yes I reviewed the patient's medical records. Lab Data Lab results reviewed: Yes I reviewed the patient's lab results. Result diagrams: 08/12/21 13:22 08/12/21 13:22 Labs: Lab Results 08/12/21 08/12/21 08/12/21 Range/Units 12:10 12:10 13:22 WBC 5.4 (4.8-10.8) X10*3/uL RBC 3.94 L (4.20-5.50) X10*6/uL Hgb 12.1 (12.0-16.0) g/dl Hct 36.3 L (37.0-47.0) % MCV 92.1 (80.0-98.0) fL MCH 30.7 (27.0-33.0) pg MCHC 33.3 (31.0-35.0) g/dl RDW 12.6 (11.0-16.0) % Plt Count 217 (160-400) X10*3/uL MPV 9.8 (9.4-12.3) fL Immature Gran % (Auto) 0.2 (0.0-0.4) % Neut % (Auto) 46.4 (45-73) % Lymph % (Auto) 44.9 H (20-40) % [facility] % (Auto) 5.7 (2-11) % Eos % (Auto) 2.6 (0-4) % Baso % (Auto) 0.2 (0-2) % Lymph # (Auto) 2.4 (1.2-4.9) X10*3/uL [facility] # (Auto) 0.3 (0.1-1.2) X10*3/uL Eos # (Auto) 0.1 (0.0-0.4) X10*3/uL Baso # (Auto) 0.0 (0.0-0.2) X10*3/uL Abs Immat Gran (auto) 0.01 (0.00-0.03) X10*3/uL Absolute Neuts (auto) 2.5 (2.0-8.3) x10*3/uL Absolute Nucleated RBC 0.000 (0.0-0.012) X10*3/uL Nucleated RBC % (auto) 0.0 (0.0-0.2) /100WBC Sodium (135-145) mmol/L Potassium (3.3-5.1) mmol/L Chloride (96-108) mmol/L Carbon Dioxide (22-29) mmol/L Anion Gap (12-20) BUN (9-16) mg/dL Creatinine (0.5-1.4) mg/dL Estim Creat Clear Calc Estimated GFR Random Glucose (60-115) mg/dL Calcium (8.4-10.2) mg/dL Magnesium (1.6-2.6) mg/dL Total Bilirubin (0.0-1.0) mg/dL Direct Bilirubin (0.0-0.5) mg/dL AST (5-31) U/L ALT (0-31) U/L Alkaline Phosphatase (39-117) U/L Total Protein (6.5-8.0) g/dL Albumin (3.5-5.0) g/dL Urine Color Urine Appearance Urine pH (5.0-8.0) Ur Specific [place] (1.005-1.025) Urine Protein (NEG-TRACE) MG/DL Urine Glucose (UA) (NEG) MG/DL Urine Ketones (NEG) MG/DL Urine Blood (NEG) Urine Nitrite (NEG) Ur Leukocyte Esterase (NEG) Urine RBC (0) /HPF Urine WBC (0-4) /HPF Ur Squamous Epith Cells /LPF Amorphous Sediment /LPF Urine Bacteria /LPF Urine Mucus /LPF COVID-19 (DULCE MARIA) Negative (Negative) COVID-19 Clin Com See Note Influenza Type A ([facility]) Negative (Negative) Influenza Type B ([facility]) Negative (Negative) Influenza A & B Note See Note 08/12/21 08/12/21 Range/Units 13:22 14:50 WBC (4.8-10.8) X10*3/uL RBC (4.20-5.50) X10*6/uL Hgb (12.0-16.0) g/dl Hct (37.0-47.0) % MCV (80.0-98.0) fL MCH (27.0-33.0) pg MCHC (31.0-35.0) g/dl RDW (11.0-16.0) % Plt Count (160-400) X10*3/uL MPV (9.4-12.3) fL Immature Gran % (Auto) (0.0-0.4) % Neut % (Auto) (45-73) % Lymph % (Auto) (20-40) % [facility] % (Auto) (2-11) % Eos % (Auto) (0-4) % Baso % (Auto) (0-2) % Lymph # (Auto) (1.2-4.9) X10*3/uL [facility] # (Auto) (0.1-1.2) X10*3/uL Eos # (Auto) (0.0-0.4) X10*3/uL Baso # (Auto) (0.0-0.2) X10*3/uL Abs Immat Gran (auto) (0.00-0.03) X10*3/uL Absolute Neuts (auto) (2.0-8.3) x10*3/uL Absolute Nucleated RBC (0.0-0.012) X10*3/uL Nucleated RBC % (auto) (0.0-0.2) /100WBC Sodium 138 (135-145) mmol/L Potassium 4.1 (3.3-5.1) mmol/L Chloride 106 (96-108) mmol/L Carbon Dioxide 25 (22-29) mmol/L Anion Gap 11 L (12-20) BUN 9 (9-16) mg/dL Creatinine 0.76 (0.5-1.4) mg/dL Estim Creat Clear Calc 81.3 Estimated GFR > 60 Random Glucose 89 (60-115) mg/dL Calcium 9.4 (8.4-10.2) mg/dL Magnesium 2.1 (1.6-2.6) mg/dL Total Bilirubin 1.1 H (0.0-1.0) mg/dL Direct Bilirubin 0.4 (0.0-0.5) mg/dL AST 13 (5-31) U/L ALT 11 (0-31) U/L Alkaline Phosphatase 75 (39-117) U/L Total Protein 7.0 (6.5-8.0) g/dL Albumin 4.3 (3.5-5.0) g/dL Urine Color YELLOW Urine Appearance HAZY Urine pH 7.0 (5.0-8.0) Ur Specific [place] 1.020 (1.005-1.025) Urine Protein NEG (NEG-TRACE) MG/DL Urine Glucose (UA) NEG (NEG) MG/DL Urine Ketones NEG (NEG) MG/DL Urine Blood NEG (NEG) Urine Nitrite NEG (NEG) Ur Leukocyte Esterase 1+ H (NEG) Urine RBC 0-2 (0) /HPF Urine WBC 1-4 (0-4) /HPF Ur Squamous Epith Cells 1+ /LPF Amorphous Sediment TRACE /LPF Urine Bacteria 1+ /LPF Urine Mucus TRACE /LPF COVID-19 (DULCE MARIA) (Negative) COVID-19 Clin Com Influenza Type A ([facility]ISON) (Negative) Influenza Type B ([facility]) (Negative) Influenza A & B Note ECG Data Attestation: I personally reviewed and interpreted this ECG as follows: Interpretation: EKG sinus bradycardia with sinus arrhythmia at a rate of 49. No STEMI. No significant change when compared to prior EKGs. Discharge Plan Discharge Clinical Impression: Acute viral syndrome Patient Disposition: Home, Self-Care Instructions: Viral Syndrome (ED) Additional Instructions: Your blood work and imaging studies were reassuring today in the ED. you tested negative for COVID-19 and the flu. Please stay hydrated. Rest. Follow up with her doctor. If symptoms persist or worsen please return to the emergency department Prescriptions: No Action tramadol 50 mg tablet 50 mg PO Q8H PRN (Reason: pain) Qty: 5 0RF cyclobenzaprine 10 mg tablet 10 mg PO TID PRN (Reason: muscle spasm) Qty: 14 0RF ibuprofen 600 mg tablet 600 mg PO Q6H PRN (Reason: pain) Qty: 30 0RF nitrofurantoin monohyd/m-cryst [Macrobid] 100 mg capsule 100 mg PO BID 7 Days Qty: 14 0RF Rx Instructions: must administer with a meal/food quetiapine 50 mg tablet 50 mg PO BEDTIME 0RF Referrals: Janki George MD [Primary Care Provider] - 3 days
[2021-08-12 15:04] LABS: Appearance Urine HAZY; Glucose Urine UA NEG (NEG); Leukocyte Esterase Urine 1+ (NEG); Nitrite Urine NEG (NEG); UACC Culture Trigger YES; Urine Blood NEG (NEG); Urine Ketones NEG (NEG); Urine Protein NEG (NEG-TRACE)
[2021-08-12 15:09] LABS: Color Urine YELLOW
[2021-08-12 15:29] LABS: Amorphous Sediment Urine TRACE /LPF; Bacteria Urine 1+ /LPF; Mucus Urine TRACE /LPF; RBC Urine 0-2 /HPF (0); Squamous Epithelial Cell Urine 1+ /LPF
[2021-08-12 16:38] LABS: UPreg QC Valid YES; Urine Pregnancy NEGATIVE (NEGATIVE)
== END 2021-08-12 16:34 | disposition home or self-care (01) ==
PROVIDERS: Physician Assistant; Emergency Provider Emergency Medicine; PCP Internal Medicine
DX: B34.9 Viral infection, unspecified (principal); R06.00 Dyspnea, unspecified; R42 Dizziness and giddiness; M79.10 Myalgia, unspecified site; Z20.822 Contact with and (suspected) exposure to COVID-19; Z79.899 Other long term (current) drug therapy
CPT/HCPCS: 36415; 71045; 80048; 80076; 81001; 81003; 81025; 83735; 85025; 87086; 87502; 87635; 93005; 96360; 99284

== ENCOUNTER 2021-12-05 20:07 | Emergency (ER) | payer MEDICAID, SELFPAY ==
--- NOTE | ~2021-12-05 | CT_ITS ---
EXAMINATION: CT ABDOMEN AND PELVIS WITHOUT CONTRAST CLINICAL INFORMATION: Right-sided abdominal pain COMPARISON: 10/02/2018 TECHNIQUE: Multidetector volumetric imaging was performed from the superior aspect of the liver through the pubic symphysis. Sagittal and coronal reformatted images were obtained on the technologist's workstation. This CT examination was performed using dose optimization techniques as appropriate, variously including the following: *Automated exposure control *Adjustment of mA and/or kV according to patient size (this includes techniques or standardized protocols for targeted exams where dose is matched to indication/reason for exam; i.e. extremities or head) *Use of iterative reconstruction technique DLP: 388 mGy-cm FINDINGS: LUNG BASES: The visualized lung bases are unremarkable. LIVER, GALLBLADDER, AND BILIARY TREE: The liver is normal in size, shape, and attenuation. No focal hepatic lesion or biliary ductal dilatation is present. The gallbladder is unremarkable with no evidence of radiopaque gallstones, gallbladder wall thickening, or obvious pericholecystic inflammatory changes. PANCREAS: Unremarkable. SPLEEN: Unremarkable. ADRENAL GLANDS: Unremarkable. KIDNEYS AND URETERS: The kidneys are normal in size, shape, and attenuation. No hydronephrosis, hydroureter, or calculi seen. No perinephric stranding. BLADDER: Unremarkable. GASTROINTESTINAL TRACT: The stomach is unremarkable. Normal caliber of the small bowel. No obstruction. The appendix may be absent as a suture line is seen in the region of the cecum. No colonic wall thickening. Moderate diffuse colonic stool burden. No free air. Trace pelvic free fluid. ABDOMINAL WALL: No significant hernia is appreciated. Prior ventral abdominal wall hernia repair. LYMPH NODES: Normal. VASCULAR: Unremarkable. PELVIC VISCERA: Anteverted uterus. No adnexal mass. OSSEOUS STRUCTURES: No acute or suspicious osseous abnormality. CT/CT abdomen pelvis wo con IMPRESSION: No acute abnormality of the abdomen or pelvis. Moderate colonic stool burden. No inflammatory changes. Fleischner guidelines were followed.
[2021-12-05 20:35] VITALS: BP 111/62; PULSE 78; RESP 18; TEMP 36.8; O2SAT 98; BMI 24.4
[2021-12-05 21:07] LABS: MANUAL DIFF FLAG NO
[2021-12-05 21:19] LABS: Basophils Percent Auto 0.2 % (0-2); Eosinophils Absolute Auto 0.1 X10*3/uL (0.0-0.4); Eosinophils Percent Auto 0.5 % (0-4); Hematocrit 35.4 % (37.0-47.0); Imm Gran Abs Auto 0.04 X10*3/uL (0.00-0.03); Imm Gran Pct Auto 0.3 % (0.0-0.4); Lymphocytes Percent Auto 15.7 % (20-40); Mean Corpuscular HGB Conc 33.9 g/dl (31.0-35.0); Mean Corpuscular Hemoglobin 31.3 pg (27.0-33.0); Mean Corpuscular Volume 92.2 fL (80.0-98.0); Mean Platelet Volume 9.8 fL (9.4-12.3); Monocytes Absolute Auto 0.7 X10*3/uL (0.1-1.2); Monocytes Percent Auto 5.7 % (2-11); Neutrophils Absolute Auto 9.9 x10*3/uL (2.0-8.3); Neutrophils Percent Auto 77.6 % (45-73); Platelet Count 251 X10*3/uL (160-400); Red Blood Count 3.84 X10*6/uL (4.20-5.50); Red Cell Distribution Width 12.2 % (11.0-16.0); White Blood Count 12.7 X10*3/uL (4.8-10.8)
[2021-12-05 21:23] LABS: Appearance Urine Clear; Color Urine Yellow; Glucose Urine UA Negative (Negative); Leukocyte Esterase Urine Negative (Negative); Nitrite Urine Negative (Negative); PH 7.5 (5.0-8.0); Specific Gravity - Urine 1.015 (1.005-1.025); Urine Blood Negative (Negative); Urine Ketones Negative (Negative); Urine Protein Negative (Neg-Trace)
[2021-12-05 21:24] LABS: Alanine Aminotransferase 44 U/L (0-31); Albumin Level 4.4 g/dL (3.5-5.0); Alkaline Phosphatase 108 U/L (39-117); Anion Gap 13 (12-20); Aspartate Amino Transferase 35 U/L (5-31); Bilirubin Total 0.7 mg/dL (0.0-1.0); Blood Urea Nitrogen 9 mg/dL (9-16); Calcium 8.9 mg/dL (8.4-10.2); Carbon Dioxide 24 mmol/L (22-29); Chloride 106 mmol/L (96-108); Creatinine Clr Calc Pharmacy 87.3; Estimated Glomerular Filt Rate > 60; Glucose Random 102 mg/dL (60-115); Sodium 139 mmol/L (135-145); Total Protein 7.1 g/dL (6.5-8.0)
[2021-12-05 23:00] LABS: HCG Quantitative < 2 mIU/mL
[2021-12-05 23:19] VITALS: BP 108/65; PULSE 75; RESP 16; TEMP 37.1; O2SAT 97
== END 2021-12-06 01:46 | disposition left against medical advice (07) ==
LOC: HO.ED 12-06 01:47
PROVIDERS: Emergency Medicine; Emergency Provider Emergency Medicine
DX: R10.9 Unspecified abdominal pain (principal); M54.50 Low back pain, unspecified
CPT/HCPCS: 36415; 74176; 80053; 81003; 84702; 85025; 99283; 99284

== ENCOUNTER 2021-12-06 10:19 | Emergency (ER) | payer MEDICAID, SELFPAY ==
[2021-12-06 11:02] VITALS: BP 119/71; PULSE 77; RESP 18; TEMP 37.1; O2SAT 98; BMI 24.4
[2021-12-06 14:08] VITALS: BP 111/67; PULSE 78; RESP 17; TEMP 36.8; O2SAT 100
[2021-12-06] MEDS: Famotidine 20 MG TABLET PO (15:03)
[2021-12-06] MEDS: Ketorolac Tromethamine 30 MG/ML VIAL IM (15:03)
[2021-12-06] MEDS: Magnesium Hydrox/Alum Hydrox 30 ML ORAL.SUSP PO (15:03)
--- NOTE | 2021-12-06 15:08 | PC.NURSE ---
pt a&ox3, vss, medicated per provider order, pt reporting 8/10 headache, labs and urine collected by tech. no new orders at this time.
[2021-12-06 15:14] LABS: UPreg QC Valid YES; Urine Pregnancy NEGATIVE (NEGATIVE)
[2021-12-06 15:16] LABS: MANUAL DIFF FLAG NO
[2021-12-06 15:18] LABS: Basophils Percent Auto 0.1 % (0-2); Eosinophils Absolute Auto 0.1 X10*3/uL (0.0-0.4); Eosinophils Percent Auto 0.9 % (0-4); Hematocrit 35.3 % (37.0-47.0); Hemoglobin 11.8 g/dl (12.0-16.0); Imm Gran Abs Auto 0.02 X10*3/uL (0.00-0.03); Imm Gran Pct Auto 0.3 % (0.0-0.4); Lymphocytes Absolute Auto 1.8 X10*3/uL (1.2-4.9); Lymphocytes Percent Auto 22.5 % (20-40); Mean Corpuscular HGB Conc 33.4 g/dl (31.0-35.0); Mean Corpuscular Hemoglobin 31.1 pg (27.0-33.0); Mean Corpuscular Volume 93.1 fL (80.0-98.0); Mean Platelet Volume 10.1 fL (9.4-12.3); Monocytes Absolute Auto 0.5 X10*3/uL (0.1-1.2); Monocytes Percent Auto 6.3 % (2-11); Neutrophils Absolute Auto 5.4 x10*3/uL (2.0-8.3); Neutrophils Percent Auto 69.9 % (45-73); Platelet Count 242 X10*3/uL (160-400); Red Blood Count 3.79 X10*6/uL (4.20-5.50); Red Cell Distribution Width 12.1 % (11.0-16.0); White Blood Count 7.8 X10*3/uL (4.8-10.8)
[2021-12-06 15:40] LABS: Alanine Aminotransferase 36 U/L (0-31); Albumin Level 4.2 g/dL (3.5-5.0); Alkaline Phosphatase 99 U/L (39-117); Anion Gap 13 (12-20); Aspartate Amino Transferase 22 U/L (5-31); Bilirubin Direct 0.3 mg/dL (0.0-0.5); Bilirubin Total 0.5 mg/dL (0.0-1.0); Blood Urea Nitrogen 10 mg/dL (9-16); Calcium 9.2 mg/dL (8.4-10.2); Carbon Dioxide 27 mmol/L (22-29); Chloride 106 mmol/L (96-108); Creatinine Clr Calc Pharmacy 89.7; Estimated Glomerular Filt Rate > 60; Glucose Random 88 mg/dL (60-115); Lipase 17 U/L (8-78); Potassium 4.2 mmol/L (3.3-5.1); Sodium 142 mmol/L (135-145); Total Protein 6.8 g/dL (6.5-8.0)
--- NOTE | 2021-12-06 16:47 | ED_ITS ---
HPI - Abdominal Pain General Chief Complaint: Abdominal Pain Stated Complaint: stomach lower back pain Time Seen by Provider: 12/06/21 14:23 Source: patient Mode of arrival: ambulatory History of Present Illness HPI narrative: 26-year-old female with a past medical history of anemia, hernia, , presenting to the ED complaining of lower abdominal pain, nausea, and vomiting x yesterday s/p helping a friend move a heavy carpet. Admits came to ED yesterday for same symptoms, had labs and CT however LWT'd. Reports continued pain and nausea today however improved since yesterday, denies vomiting today. Denies diarrhea, fever, chills, dysuria/hematuria, vaginal bleeding/discharge, flank pain Related Data Home Medications Medication Instructions Recorded Confirmed quetiapine 50 mg tablet 50 mg PO BEDTIME 04/26/21 06/14/21 Previous Rx's Medication Instructions Recorded cyclobenzaprine 10 mg tablet 10 mg PO TID PRN muscle spasm #14 09/10/20 tabs ibuprofen 600 mg tablet 600 mg PO Q6H PRN pain #30 tabs 09/10/20 nitrofurantoin 100 mg PO BID 7 days #14 caps 09/10/20 monohydrate/macrocrystals 100 mg capsule (Macrobid) tramadol 50 mg tablet 50 mg PO Q8H PRN pain #5 tabs 11/16/20 Allergies Allergy/AdvReac Type Severity Reaction Status Date / Time No Known Allergies Allergy Verified 12/06/21 11:02 Review of Systems Review of Systems Constitutional: No Fever, No Chills, No Fatigue, No Malaise ENT/Mouth: No Ear Pain, No Nasal Congestion, No sore throat, No Rhinorrhea, No Swallowing Difficulty Eyes: No Eye Pain, No Swelling, No Redness, No Vision Changes Cardiovascular: No Chest Pain, No SOB Respiratory: No Cough, No Sputum, No Dyspnea Gastrointestinal: + Nausea, No Vomiting, No Diarrhea, No Constipation, + Abdominal pain Genitourinary: No irregular bleeding, No Dysuria, No Urinary Frequency, No Hematuria, No Flank Pain, No Urinary Flow Changes Musculoskeletal: No joint pain, No Myalgias, No Joint Swelling Skin: No Skin Lesions, No rash Neuro: No Weakness, No Headache Yes all other systems are reviewed and are negative Constitutional: Reports as per [facility] Past Medical History Attestation statement: The following information was validated with the patient. Medical History Anemia delivery delivered Hernia Surgical History History of delivery (02/2013) History of hemorrhoidectomy (2015) History of umbilical hernia repair (11/17/13) History of ventral hernia repair (2017) Hx of appendectomy Family History Family History Father No problems noted. Mother No problems noted. Maternal Grandfather Cancer of unknown origin Social History Social History Alcohol intake: never Patient Tobacco Use Status: Never used Tobacco Use of substances other than those prescribed or required for medical reasons: No Advance Directives: No Advance Directives Information Provided: No Physical Exam ED Vital Signs: Vital Signs - 24 hr 12/06/21 11:02 12/06/21 14:08 Temperature 98.7 F 98.3 F Pulse Rate 77 78 Respiratory Rate 18 17 Blood Pressure 119/71 111/67 Pulse Oximetry 98 100 Oxygen Delivery Method Room Air Room Air BMI result Body Mass Index 24.4 Const General: cooperative, healthy appearing and no acute distress Orientation/consciousness: patient oriented x3 Limitations: no limitations HENMT Head: Yes normal to inspection and Yes atraumatic Ears: hearing grossly normal bilaterally General nose exam: Normal external nose present Face and sinus: Yes normal facial exam Eyes General: appearance normal, both eyes and all related structures EOM: EOMs intact bilaterally Neck Neck: Yes normal visual inspection and Yes no meningeal signs Resp Effort & Inspection: normal respiratory effort and no respiratory distress Cardio Rate: regular rate Heart sounds: S1 normal heart sound present and S2 normal heart sound present GI Inspection: Yes normal to inspection Palpation (GI): Soft to palpation, Tenderness to palpation present (GI) (diffusely) with no rebound tenderness, no guarding and not rigid General: Yes no CVA tenderness Back/Spine/Pelvis Back: no CVA tenderness Skin Rashes: no rashes Wounds: no wounds Neuro General: patient oriented x3, tone normal and no meningeal signs Gait exam (Neuro): Normal gait present Extrem General: Yes normal to inspection Course Course Course Narrative: -1440--leukocytosis improved from yesterday. H&H at patient's baseline. Labs otherwise unremarkable/improved -patient tolerating p.o. in the ED without pain, nausea or vomiting. > Patient tolerating p.o. in the ED without difficulty. Results discussed with patient including worrisome signs and symptoms and strict return precautions, and when to return to the emergency department. They verbalized understanding and feel safe for discharge at this time. MDM - Abdominal Pain MDM Narrative Medical decision making narrative: 26-year-old female with a past medical history of anemia, hernia, , presenting to the ED complaining of lower abdominal pain, nausea, and vomiting x yesterday s/p helping a friend move a heavy carpet. On exam vital signs stable, NAD, abdomen soft with diffuse tenderness, no rebound or guarding. No CVA tenderness. Labs yesterday notable for mild leukocytosis to 12.7 and elevated AST/ALT, CT showed some constipation otherwise unremarkable. Concern for MSK pa in/strain vs gastroenteritis vs UTI. Lower suspicion for appendicitis/diverticulitis without evidence on CT yesterday. Lower suspicion for ovarian torsion vs cyst Plan: Repeat labs, repeat UA, symptomatic treatment, p.o. challenge Differential Diagnosis Differential diagnosis: Likely abdominal pain and constipation Medical Records Attestation: I reviewed the patient's medical records. Lab Data Attestation: I reviewed the patient's lab results. Result diagrams: 12/06/21 14:50 12/06/21 14:50 Labs: Lab Results 12/06/21 12/06/21 12/06/21 Range/Units 14:50 14:50 15:04 WBC 7.8 (4.8-10.8) X10*3/uL RBC 3.79 L (4.20-5.50) X10*6/uL Hgb 11.8 L (12.0-16.0) g/dl Hct 35.3 L (37.0-47.0) % MCV 93.1 (80.0-98.0) fL MCH 31.1 (27.0-33.0) pg MCHC 33.4 (31.0-35.0) g/dl RDW 12.1 (11.0-16.0) % Plt Count 242 (160-400) X10*3/uL MPV 10.1 (9.4-12.3) fL Immature Gran % (Auto) 0.3 (0.0-0.4) % Neut % (Auto) 69.9 (45-73) % Lymph % (Auto) 22.5 (20-40) % [place] % (Auto) 6.3 (2-11) % Eos % (Auto) 0.9 (0-4) % Baso % (Auto) 0.1 (0-2) % Lymph # (Auto) 1.8 (1.2-4.9) X10*3/uL [place] # (Auto) 0.5 (0.1-1.2) X10*3/uL Eos # (Auto) 0.1 (0.0-0.4) X10*3/uL Baso # (Auto) 0.0 (0.0-0.2) X10*3/uL Abs Immat Gran (auto) 0.02 (0.00-0.03) X10*3/uL Absolute Neuts (auto) 5.4 (2.0-8.3) x10*3/uL Absolute Nucleated RBC 0.000 (0.0-0.012) X10*3/uL Nucleated RBC % (auto) 0.0 (0.0-0.2) /100WBC Sodium 142 (135-145) mmol/L Potassium 4.2 (3.3-5.1) mmol/L Chloride 106 (96-108) mmol/L Carbon Dioxide 27 (22-29) mmol/L Anion Gap 13 (12-20) BUN 10 (9-16) mg/dL Creatinine 0.75 (0.5-1.4) mg/dL Estim Creat Clear Calc 89.7 Estimated GFR > 60 Random Glucose 88 (60-115) mg/dL Calcium 9.2 (8.4-10.2) mg/dL Total Bilirubin 0.5 (0.0-1.0) mg/dL Direct Bilirubin 0.3 (0.0-0.5) mg/dL AST 22 (5-31) U/L ALT 36 H (0-31) U/L Alkaline Phosphatase 99 (39-117) U/L Total Protein 6.8 (6.5-8.0) g/dL Albumin 4.2 (3.5-5.0) g/dL Lipase 17 (8-78) U/L Urine Test NEGATIVE (NEGATIVE) Discharge Plan Discharge Clinical Impression: Abdominal pain Patient Disposition: Home, Self-Care Instructions: Abdominal Pain (ED) Additional Instructions: Your blood work looks improved from yesterday. Your urine is unremarkable. CT scan yesterday showed some constipation otherwise no infection. Practice a bland diet for the next few days, avoid spicy foods, sweets, caffeine, chocolate. Stay hydrated. Rest. Follow up with her doctor If symptoms persist or worsen return to the emergency department Prescriptions: No Action tramadol 50 mg tablet 50 mg PO Q8H PRN (Reason: pain) Qty: 5 0RF cyclobenzaprine 10 mg tablet 10 mg PO TID PRN (Reason: muscle spasm) Qty: 14 0RF ibuprofen 600 mg tablet 600 mg PO Q6H PRN (Reason: pain) Qty: 30 0RF nitrofurantoin monohyd/m-cryst [Macrobid] 100 mg capsule 100 mg PO BID 7 Days Qty: 14 0RF Rx Instructions: must administer with a meal/food quetiapine 50 mg tablet 50 mg PO BEDTIME Referrals: Janki George MD [Primary Care Provider] - 3 days
== END 2021-12-06 17:24 | disposition home or self-care (01) ==
PROVIDERS: Physician Assistant; Emergency Provider Emergency Medicine; PCP Internal Medicine
DX: R10.30 Lower abdominal pain, unspecified (principal)
CPT/HCPCS: 36415; 80048; 80076; 81025; 83690; 85025; 96372; 99284; J1885

== ENCOUNTER 2021-12-18 16:24 | Emergency (ER) | payer MEDICAID, SELFPAY ==
--- NOTE | ~2021-12-18 | US_ITS ---
EXAMINATION: US ABDOMEN COMPLETE CLINICAL INFORMATION: Umbilical and right upper quadrant pain. COMPARISON: CT abdomen pelvis 12/05/2021 TECHNIQUE: Real-time imaging of the abdominal viscera. FINDINGS: PANCREAS: Normal. ABDOMINAL AORTA: The proximal, mid, and distal segments are normal in caliber. INFERIOR VENA CAVA: Visualized portions are normal. LIVER: Normal. The liver is normal in size. The liver contour is normal. Parenchymal echogenicity is normal. No focal hepatic lesion. There is no intrahepatic biliary duct dilatation seen. GALLBLADDER: Normal. The gallbladder is physiologically distended without evidence of stones, sludge, polyps, wall thickening or pericholecystic fluid. COMMON BILE DUCT: Normal in caliber measuring 0.2 cm in diameter. RIGHT KIDNEY: Normal. No hydronephrosis. No renal calculi or focal parenchymal lesions. The kidney measures 10.2 cm in maximum dimension. LEFT KIDNEY: Normal. No hydronephrosis. No renal calculi or focal parenchymal lesions. The kidney measures 9.7 cm in maximum dimension. SPLEEN: Normal. The spleen measures 8.0 cm in maximum dimension. FREE FLUID: None. US/US abdomen complete IMPRESSION: No significant abnormality is seen.
[2021-12-18 16:42] VITALS: BP 151/70; PULSE 105; RESP 18; TEMP 36.9; O2SAT 98; BMI 24.4
[2021-12-18 16:57] LABS: MANUAL DIFF FLAG NO
[2021-12-18 16:59] LABS: Basophils Percent Auto 0.1 % (0-2); Eosinophils Absolute Auto 0.1 X10*3/uL (0.0-0.4); Hematocrit 37.5 % (37.0-47.0); Hemoglobin 12.5 g/dl (12.0-16.0); Imm Gran Abs Auto 0.02 X10*3/uL (0.00-0.03); Imm Gran Pct Auto 0.3 % (0.0-0.4); Lymphocytes Absolute Auto 1.6 X10*3/uL (1.2-4.9); Lymphocytes Percent Auto 23.3 % (20-40); Mean Corpuscular HGB Conc 33.3 g/dl (31.0-35.0); Mean Corpuscular Hemoglobin 30.8 pg (27.0-33.0); Mean Corpuscular Volume 92.4 fL (80.0-98.0); Mean Platelet Volume 9.6 fL (9.4-12.3); Monocytes Absolute Auto 0.5 X10*3/uL (0.1-1.2); Monocytes Percent Auto 6.5 % (2-11); Neutrophils Absolute Auto 4.8 x10*3/uL (2.0-8.3); Neutrophils Percent Auto 68.8 % (45-73); Platelet Count 236 X10*3/uL (160-400); Red Blood Count 4.06 X10*6/uL (4.20-5.50); Red Cell Distribution Width 12.2 % (11.0-16.0); White Blood Count 6.9 X10*3/uL (4.8-10.8)
[2021-12-18 17:00] LABS: Appearance Urine Cloudy; Color Urine Dark Yellow; Glucose Urine UA Negative (Negative); Leukocyte Esterase Urine Trace (Negative); Nitrite Urine Negative (Negative); PH 5.5 (5.0-9.0); Specific Gravity - Urine >= 1.030 (1.005-1.025); Urine Blood Negative (Negative); Urine Ketones Trace mg/dL (Negative); Urine Protein Trace mg/dL (Neg-Trace)
[2021-12-18 17:01] LABS: UPreg QC Valid YES; Urine Pregnancy NEGATIVE (NEGATIVE)
[2021-12-18 17:02] LABS: Bacteria Urine None Seen (None Seen); Hyaline Casts Urine 0-2 /LPF (0-2); UACC Culture Trigger YES
[2021-12-18 17:13] LABS: Anion Gap 13 (12-20); Blood Urea Nitrogen 11 mg/dL (9-16); Calcium 9.3 mg/dL (8.4-10.2); Carbon Dioxide 26 mmol/L (22-29); Chloride 105 mmol/L (96-108); Creatinine Clr Calc Pharmacy 84.1; Estimated Glomerular Filt Rate > 60; Glucose Random 118 mg/dL (60-115); Potassium 3.7 mmol/L (3.3-5.1); Sodium 140 mmol/L (135-145)
--- NOTE | 2021-12-18 18:32 | ED_ITS ---
HPI - Abdominal Pain General Chief Complaint: Abdominal Pain Stated Complaint: back pain/abd pain/fever Source: patient Mode of arrival: ambulatory Limitations: no limitations History of Present Illness HPI narrative: 26-year-old female presents for umbilical abdominal pain that radiates to her bilateral lower quadrants. States that she was here last week for similar presentation with a negative CT scan. States that the pain is a burning pain. She does not report fevers, chills, chest pain or pressure, palpitations, shortness of breath, abdominal distention, dysuria or hematuria. MD elicited complaint: abdominal pain Onset (ago): day(s) (3) Pain Consistency: constant Location: periumbilical Severity: moderate Pain scale (0-10): 6 Quality: burning Radiation: LLQ, RLQ and suprapubic Relieving factors: nothing Associated symptoms: denies other symptoms Related Data Home Medications Medication Instructions Recorded Confirmed quetiapine 50 mg tablet 50 mg PO BEDTIME 04/26/21 06/14/21 Previous Rx's Medication Instructions Recorded cyclobenzaprine 10 mg tablet 10 mg PO TID PRN muscle spasm #14 09/10/20 tabs ibuprofen 600 mg tablet 600 mg PO Q6H PRN pain #30 tabs 09/10/20 nitrofurantoin 100 mg PO BID 7 days #14 caps 09/10/20 monohydrate/macrocrystals 100 mg capsule (Macrobid) tramadol 50 mg tablet 50 mg PO Q8H PRN pain #5 tabs 11/16/20 nitrofurantoin 100 mg PO Q12H 7 days #14 caps 12/18/21 monohydrate/macrocrystals 100 mg capsule (Macrobid) Allergies Allergy/AdvReac Type Severity Reaction Status Date / Time No Known Allergies Allergy Verified 12/06/21 11:02 Review of Systems Review of Systems Constitutional: No Fever, No Chills ENT/Mouth: No Ear Pain, No Hoarseness, No sore throat Eyes: No Eye Pain, No Swelling, No Redness, No Foreign Body Cardiovascular: No Chest Pain, No SOB Respiratory: No Cough, No Dyspnea Gastrointestinal: No Nausea, No Vomiting, No Diarrhea, positive abdominal Pain Genitourinary: No Dysuria, No Hematuria Musculoskeletal: No joint pain, No Myalgias, No Joint Swelling Skin: No Skin lacerations, No rash Neuro: No Weakness, No Numbness, No Paresthesias, No Loss of Consciousness, No Dizziness, No Headache Psych: No Anxiety/Panic, No Depression Heme/Lymph: no easy bruising, no Lymphadenopathy Endocrine: No Polyuria, No Polydipsia Yes all other systems are reviewed and are negative [facility] Past Medical History Attestation statement: The following information was validated with the patient. Source: old records reviewed Medical History Anemia delivery delivered Hernia Surgical History History of delivery (02/2013) History of hemorrhoidectomy (2015) History of umbilical hernia repair (11/17/13) History of ventral hernia repair (2017) Hx of appendectomy Family History Family History Father No problems noted. Mother No problems noted. Maternal Grandfather Cancer of unknown origin Social History Social History Alcohol intake: never Patient Tobacco Use Status: Never used Tobacco Advance Directives: No Advance Directives Information Provided: Yes Physical Exam ED Vital Signs: Vital Signs - 24 hr 12/18/21 16:42 12/18/21 18:42 Temperature 98.5 F 98.8 F Pulse Rate 105 H 78 Respiratory Rate 18 16 Blood Pressure 151/70 H 116/75 Pulse Oximetry 98 99 Oxygen Delivery Method Room Air Room Air BMI result Body Mass Index 24.4 Appearance: Alert. Oriented X3. No acute distress. Eyes: Pupils equal, round and reactive to light. Sclera nonicteric. ENT: Pharynx normal. Neck: Normal inspection. Neck supple. CVS: Tachycardic heart rate and rhythm. Pulses normal. Respiratory: No respiratory distress. Breath sounds normal. Abdomen: Soft and umbilical left lower right lower and suprapubic tenderness to palpation. No rebound, rigidity or distention. Skin: Skin warm and dry. Normal skin color. Normal skin turgor. Extremities: No lower extremity edema. Moves all extremities against resistance. Gait well-balanced well coordinated. Neuro: No motor deficit. No sensory deficit. Cranial nerves 2-12 intact. Course Course Course Narrative: 26-year-old female presents with burning abdominal pain radiating from the umbilicus to the bilateral lower quadrants and suprapubic area. Was evaluated about a week ago for the same presentation with negative CT scan of abdomen pelvis. Patient's physical exam is unremarkable, does show some tenderness to palpation but no rigidity rebound distension negative Bartlett's and McBurney's. Will order abdominal ultrasound. Urinalysis is positive for UTI. Will give some Macrobid. 20:47 abdominal ultrasound is negative for acute findings. Will discharge home with treatment for UTI. Patient verbalized understanding of and agrees to plan of care discharge home. Verbalized understanding of signs symptoms indicating need for emergent intervention. MDM - Abdominal Pain Differential Diagnosis Differential diagnosis: Likely abdominal pain, acute appendicitis, constipation and diverticulitis Medical Records Attestation: I reviewed the patient's medical records. Lab Data Attestation: I reviewed the patient's lab results. Result diagrams: 12/18/21 16:50 12/18/21 16:50 Labs: Lab Results 12/18/21 12/18/21 12/18/21 Range/Units 16:50 16:50 16:50 WBC 6.9 (4.8-10.8) X10*3/uL RBC 4.06 L (4.20-5.50) X10*6/uL Hgb 12.5 (12.0-16.0) g/dl Hct 37.5 (37.0-47.0) % MCV 92.4 (80.0-98.0) fL MCH 30.8 (27.0-33.0) pg MCHC 33.3 (31.0-35.0) g/dl RDW 12.2 (11.0-16.0) % Plt Count 236 (160-400) X10*3/uL MPV 9.6 (9.4-12.3) fL Immature Gran % (Auto) 0.3 (0.0-0.4) % Neut % (Auto) 68.8 (45-73) % Lymph % (Auto) 23.3 (20-40) % [place] % (Auto) 6.5 (2-11) % Eos % (Auto) 1.0 (0-4) % Baso % (Auto) 0.1 (0-2) % Lymph # (Auto) 1.6 (1.2-4.9) X10*3/uL [place] # (Auto) 0.5 (0.1-1.2) X10*3/uL Eos # (Auto) 0.1 (0.0-0.4) X10*3/uL Baso # (Auto) 0.0 (0.0-0.2) X10*3/uL Abs Immat Gran (auto) 0.02 (0.00-0.03) X10*3/uL Absolute Neuts (auto) 4.8 (2.0-8.3) x10*3/uL Absolute Nucleated RBC 0.000 (0.0-0.012) X10*3/uL Nucleated RBC % (auto) 0.0 (0.0-0.2) /100WBC Sodium 140 (135-145) mmol/L Potassium 3.7 (3.3-5.1) mmol/L Chloride 105 (96-108) mmol/L Carbon Dioxide 26 (22-29) mmol/L Anion Gap 13 (12-20) BUN 11 (9-16) mg/dL Creatinine 0.80 (0.5-1.4) mg/dL Estim Creat Clear Calc 84.1 Estimated GFR > 60 Random Glucose 118 H (60-115) mg/dL Calcium 9.3 (8.4-10.2) mg/dL Urine Color Dark Yellow Urine Appearance Cloudy Urine pH 5.5 (5.0-9.0) Ur Specific [place] >= 1.030 H (1.005-1.025) Urine Protein Trace (Neg-Trace) mg/dL Urine Glucose (UA) Negative (Negative) mg/dL Urine Ketones Trace (Negative) mg/dL Urine Blood Negative (Negative) Urine Nitrite Negative (Negative) Ur Leukocyte Esterase Trace H (Negative) Urine RBC 3-5 H (0-2) /HPF Urine WBC 6-10 H (0-5) /HPF Ur Squamous Epith Cells 6-10 (0-2) /HPF Urine Bacteria None Seen (None Seen) Hyaline Casts 0-2 (0-2) /LPF Urine Test (NEGATIVE) 12/18/21 Range/Units 16:50 WBC (4.8-10.8) X10*3/uL RBC (4.20-5.50) X10*6/uL Hgb (12.0-16.0) g/dl Hct (37.0-47.0) % MCV (80.0-98.0) fL MCH (27.0-33.0) pg MCHC (31.0-35.0) g/dl RDW (11.0-16.0) % Plt Count (160-400) X10*3/uL MPV (9.4-12.3) fL Immature Gran % (Auto) (0.0-0.4) % Neut % (Auto) (45-73) % Lymph % (Auto) (20-40) % [place] % (Auto) (2-11) % Eos % (Auto) (0-4) % Baso % (Auto) (0-2) % Lymph # (Auto) (1.2-4.9) X10*3/uL [place] # (Auto) (0.1-1.2) X10*3/uL Eos # (Auto) (0.0-0.4) X10*3/uL Baso # (Auto) (0.0-0.2) X10*3/uL Abs Immat Gran (auto) (0.00-0.03) X10*3/uL Absolute Neuts (auto) (2.0-8.3) x10*3/uL Absolute Nucleated RBC (0.0-0.012) X10*3/uL Nucleated RBC % (auto) (0.0-0.2) /100WBC Sodium (135-145) mmol/L Potassium (3.3-5.1) mmol/L Chloride (96-108) mmol/L Carbon Dioxide (22-29) mmol/L Anion Gap (12-20) BUN (9-16) mg/dL Creatinine (0.5-1.4) mg/dL Estim Creat Clear Calc Estimated GFR Random Glucose (60-115) mg/dL Calcium (8.4-10.2) mg/dL Urine Color Urine Appearance Urine pH (5.0-9.0) Ur Specific [place] (1.005-1.025) Urine Protein (Neg-Trace) mg/dL Urine Glucose (UA) (Negative) mg/dL Urine Ketones (Negative) mg/dL Urine Blood (Negative) Urine Nitrite (Negative) Ur Leukocyte Esterase (Negative) Urine RBC (0-2) /HPF Urine WBC (0-5) /HPF Ur Squamous Epith Cells (0-2) /HPF Urine Bacteria (None Seen) Hyaline Casts (0-2) /LPF Urine Test NEGATIVE (NEGATIVE) Imaging Data Abdominal ultrasound: Attestation: I personally reviewed and interpreted this imaging study as follows: Radiologist's impression: EXAMINATION: US ABDOMEN COMPLETE CLINICAL INFORMATION: Umbilical and right upper quadrant pain. COMPARISON: CT abdomen pelvis 12/05/2021 TECHNIQUE: Real-time imaging of the abdominal viscera. FINDINGS: PANCREAS: Normal. ABDOMINAL AORTA: The proximal, mid, and distal segments are normal in caliber. INFERIOR VENA CAVA: Visualized portions are normal. LIVER: Normal. The liver is normal in size. The liver contour is normal. Parenchymal echogenicity is normal. No focal hepatic lesion. There is no intrahepatic biliary duct dilatation seen. GALLBLADDER: Normal. The gallbladder is physiologically distended without evidence of stones, sludge, polyps, wall thickening or pericholecystic fluid. COMMON BILE DUCT: Normal in caliber measuring 0.2 cm in diameter. RIGHT KIDNEY: Normal. No hydronephrosis. No renal calculi or focal parenchymal lesions. The kidney measures 10.2 cm in maximum dimension. LEFT KIDNEY: Normal. No hydronephrosis. No renal calculi or focal parenchymal lesions. The kidney measures 9.7 cm in maximum dimension. SPLEEN: Normal. The spleen measures 8.0 cm in maximum dimension. FREE FLUID: None. US/US abdomen complete IMPRESSION: No significant abnormality is seen. Discharge Plan Discharge Clinical Impression: UTI (urinary tract infection) Patient Disposition: Home, Self-Care Instructions: Urinary Tract Infection in Women (ED) Additional Instructions: You were evaluated for abdominal pain. Ultrasound is negative for acute findings. Urinalysis positive for UTI. Please take Macrobid 100 mg twice a day for the next 7 days. Drink plenty of fluids. Thank you for choosing this emergency department for evaluation. Please follow-up with primary care physician as needed. Return to the emergency department for any new, concerning, or worsening symptoms. Prescriptions: New nitrofurantoin monohyd/m-cryst [Macrobid] 100 mg capsule 100 mg PO Q12H 7 Days Qty: 14 0RF Rx Instructions: must administer with a meal/food No Action tramadol 50 mg tablet 50 mg PO Q8H PRN (Reason: pain) Qty: 5 0RF cyclobenzaprine 10 mg tablet 10 mg PO TID PRN (Reason: muscle spasm) Qty: 14 0RF ibuprofen 600 mg tablet 600 mg PO Q6H PRN (Reason: pain) Qty: 30 0RF nitrofurantoin monohyd/m-cryst [Macrobid] 100 mg capsule 100 mg PO BID 7 Days Qty: 14 0RF Rx Instructions: must administer with a meal/food quetiapine 50 mg tablet 50 mg PO BEDTIME Stand Alone Forms: Work/School Release
[2021-12-18 18:42] VITALS: BP 116/75; PULSE 78; RESP 16; TEMP 37.1; O2SAT 99
[2021-12-18] MEDS: Nitrofurantoin Monohyd/M-Cryst 100 MG CAPSULE PO (18:51)
== END 2021-12-18 21:17 | disposition home or self-care (01) ==
PROVIDERS: Emergency Provider Emergency Medicine; PCP Internal Medicine
DX: N39.0 Urinary tract infection, site not specified (principal); R10.33 Periumbilical pain
CPT/HCPCS: 36415; 76700; 80048; 81001; 81025; 85025; 87086; 99283; 99284

== ENCOUNTER 2022-06-04 10:04 | Outpatient (REF) | payer MEDICAID, SELFPAY ==
--- NOTE | ~2022-06-04 | XR_ITS ---
EXAMINATION: XR LUMBOSACRAL SPINE CLINICAL INFORMATION: Worsening back pain with sciatica. COMPARISON: CT study of 12/05/2021 TECHNIQUE: Three views of the lumbosacral spine. FINDINGS: There are 5 nonrib-bearing lumbar vertebrae. The bony texture and alignment is satisfactory without evidence of acute fracture, spondylolisthesis, or spondylolysis. Disc spaces are maintained. Pedicles are intact. Sacroiliac joints unremarkable. XR/XR lumbar spine 2-3V IMPRESSION: No bony abnormality of the lumbar spine identified.
== END 2022-06-04 10:05 | disposition home or self-care (01) ==
LOC: HO.XRAY 10:04
PROVIDERS: Absent Provider Internal Medicine; PCP Internal Medicine; Visit Provider Nurse Practitioner Family
DX: M54.40 Lumbago with sciatica, unspecified side (principal)
CPT/HCPCS: 72100

== ENCOUNTER 2022-09-08 00:02 | Emergency (ER) | payer MEDICAID, SELFPAY ==
--- NOTE | ~2022-09-08 | XR_ITS ---
EXAMINATION: XR CHEST CLINICAL INFORMATION: Chest pain COMPARISON: 12/12/2021 TECHNIQUE: 2 views of the chest were obtained. FINDINGS: Normal symmetric lung volumes. No parenchymal consolidation. No pleural effusion. No pneumothorax. Cardiomediastinal silhouette and pulmonary vascularity are within normal limits. No acute osseous abnormalities. XR/XR chest 2V IMPRESSION: Clear lungs
[2022-09-08 00:06] VITALS: BP 136/75; PULSE 95; RESP 20; TEMP 36.6; O2SAT 98; BMI 25.4
[2022-09-08 00:20] LABS: MANUAL DIFF FLAG NO
--- NOTE | 2022-09-08 00:21 | ED_ITS ---
HPI - Chest Pain General Chief Complaint: Chest Pain Stated Complaint: CP Time Seen by Provider: 09/08/22 00:20 Source: patient Mode of arrival: ambulatory Limitations: no limitations History of Present Illness HPI narrative: Patient with hx of anxiety/panic attack with history of multiple ED visits for chest pain was in the car suddenly felt panic attack with left-sided chest pain sharp in character no shortness of breath no diaphoresis pain lasted for few minutes patient chest pain-free now Related Data Home Medications Medication Instructions Recorded Confirmed quetiapine 50 mg tablet 50 mg PO BEDTIME 04/26/21 06/14/21 Previous Rx's Medication Instructions Recorded cyclobenzaprine 10 mg tablet 10 mg PO TID PRN muscle spasm #14 09/10/20 tabs ibuprofen 600 mg tablet 600 mg PO Q6H PRN pain #30 tabs 09/10/20 nitrofurantoin 100 mg PO BID 7 days #14 caps 09/10/20 monohydrate/macrocrystals 100 mg capsule (Macrobid) tramadol 50 mg tablet 50 mg PO Q8H PRN pain #5 tabs 11/16/20 nitrofurantoin 100 mg PO Q12H 7 days #14 caps 12/18/21 monohydrate/macrocrystals 100 mg capsule (Macrobid) Allergies Allergy/AdvReac Type Severity Reaction Status Date / Time No Known Allergies Allergy Verified 09/08/22 00:05 Review of Systems Review of Systems: Yes all other systems are reviewed and are negative [facility] Past Medical History Medical History Anemia delivery delivered Hernia Surgical History History of delivery (02/2013) History of hemorrhoidectomy (2015) History of umbilical hernia repair (11/17/13) History of ventral hernia repair (2017) Hx of appendectomy Family History Family History Father No problems noted. Mother No problems noted. Maternal Grandfather Cancer of unknown origin Social History Social History Alcohol intake: never Patient Tobacco Use Status: Never used Tobacco Advance Directives: No Advance Directives Information Provided: No Physical Exam Vital Signs: Vital Signs: Last Vital Signs Temp 97.9 F 09/08/22 00:06 Pulse 95 09/08/22 00:06 Resp 20 09/08/22 00:06 BP 136/75 09/08/22 00:06 Pulse Ox 98 09/08/22 00:06 O2 Del Method Room Air 09/08/22 00:06 BMI result Body Mass Index 25.4 Appearance: Alert. Oriented X3. No acute distress. Anxious Eyes: PERRLA, No Nystagmus ENT: Pharynx normal. Oral Mucosa moist Neck: Normal inspection. Neck supple. CVS: Normal heart rate and rhythm. Pulses normal. Respiratory: No respiratory distress. Equal air entry bilateral, no wheezing/rales/rhonchi Abdomen: Soft and nontender. Bowel sounds are present, no mass palpable, no CVA tenderness Skin: Skin warm and dry. Normal skin color. Normal skin turgor. Extremities: No lower extremity edema. No calf tenderness Neuro: Oriented X 3. No motor deficit. No sensory deficit.No cerebellar signs , cranial nerves II-XII intact Medications Administered Discontinued Medications Generic Name Dose Route Start Last Admin Trade Name Freq PRN Reason Stop Dose Admin Lorazepam 0.5 mg 09/08/22 00:41 09/08/22 00:49 Lorazepam 0.5 Mg Tablet PO 09/08/22 00:42 0.5 mg ONCE ONE Administration Medical Decision Making Medical Decision Making [facility] Narrative: Patient with heart score of 0 with history of anxiety and panic attacks EKG norm al Hycet troponin negative discharge patient home advised to continue her medications as prescribed by PCP Lab Data [facility] Lab Attestation statement: I reviewed the patient's lab results. 09/08/22 00:16 09/08/22 00:16 Labs: Lab Results 09/08/22 09/08/22 09/08/22 Range/Units 00:16 00:16 00:16 WBC 7.8 (4.8-10.8) X10*3/uL RBC 3.80 L (4.20-5.50) X10*6/uL Hgb 11.6 L (12.0-16.0) g/dl Hct 34.3 L (37.0-47.0) % MCV 90.3 (80.0-98.0) fL MCH 30.5 (27.0-33.0) pg MCHC 33.8 (31.0-35.0) g/dl RDW 12.3 (11.0-16.0) % Plt Count 232 (160-400) X10*3/uL MPV 9.9 (9.4-12.3) fL Immature Gran % (Auto) 0.1 (0.0-0.4) % Neut % (Auto) 51.3 (45-73) % Lymph % (Auto) 39.8 (20-40) % [place] % (Auto) 6.7 (2-11) % Eos % (Auto) 1.8 (0-4) % Baso % (Auto) 0.3 (0-2) % Lymph # (Auto) 3.1 (1.2-4.9) X10*3/uL [place] # (Auto) 0.5 (0.1-1.2) X10*3/uL Eos # (Auto) 0.1 (0.0-0.4) X10*3/uL Baso # (Auto) 0.0 (0.0-0.2) X10*3/uL Abs Immat Gran (auto) 0.01 (0.00-0.03) X10*3/uL Absolute Neuts (auto) 4.0 (2.0-8.3) x10*3/uL Absolute Nucleated RBC 0.000 (0.0-0.012) X10*3/uL Nucleated RBC % (auto) 0.0 (0.0-0.2) /100WBC Sodium 140 (135-145) mmol/L Potassium 3.8 (3.3-5.1) mmol/L Chloride 111 H (96-108) mmol/L Carbon Dioxide 21 L (22-29) mmol/L Anion Gap 12 (12-20) BUN 16 (9-16) mg/dL Creatinine 0.85 (0.5-1.4) mg/dL Estim Creat Clear Calc 79.8 Estimated GFR > 60 Random Glucose 96 (60-115) mg/dL Calcium 9.1 (8.4-10.2) mg/dL Troponin I High Sens < 2.7 (<3.5-17.0) ng/L Independent Interpretation I performed an independent interpretation of an: EKG Interpretation: Normal sinus rhythm heart rate 74 beats per minute normal intervals normal axis no acute ST deviation no acute ischemia Discharge Plan Discharge Clinical Impression: Atypical chest pain, Panic attack Patient Disposition: Home, Self-Care Instructions: Noncardiac Chest Pain (ED), Panic Attack (ED) Additional Instructions: Take your anxiety medication as prescribed by your PCP Follow with PCP Prescriptions: No Action tramadol 50 mg tablet 50 mg PO Q8H PRN (Reason: pain) Qty: 5 0RF cyclobenzaprine 10 mg tablet 10 mg PO TID PRN (Reason: muscle spasm) Qty: 14 0RF ibuprofen 600 mg tablet 600 mg PO Q6H PRN (Reason: pain) Qty: 30 0RF nitrofurantoin monohyd/m-cryst [Macrobid] 100 mg capsule 100 mg PO BID 7 Days Qty: 14 0RF Rx Instructions: must administer with a meal/food nitrofurantoin monohyd/m-cryst [Macrobid] 100 mg capsule 100 mg PO Q12H 7 Days Qty: 14 0RF Rx Instructions: must administer with a meal/food quetiapine 50 mg tablet 50 mg PO BEDTIME Interventions: ED Discharge Assessment Last Done: 09/08/22 00:51 Discharge Date/Time: 09/08/22 00:52
--- NOTE | 2022-09-08 00:25 | ECG_ITS ---
Test Reason : chest pain Blood Pressure : / mmHG Vent. Rate : 074 BPM Atrial Rate : 074 BPM P-R Int : 198 ms QRS Dur : 096 ms QT Int : 372 ms P-R-T Axes : 057 066 046 degrees QTc Int : 412 ms Normal sinus rhythm Normal ECG When compared with ECG of 12-AUG-2021 13:22, Vent. rate has increased BY 25 BPM Referred By: David Valdez Electronically Signed By:Anthony Duncan
[2022-09-08 00:34] LABS: Anion Gap 12 (12-20); Blood Urea Nitrogen 16 mg/dL (9-16); Calcium 9.1 mg/dL (8.4-10.2); Carbon Dioxide 21 mmol/L (22-29); Chloride 111 mmol/L (96-108); Creatinine Clr Calc Pharmacy 79.8; Estimated Glomerular Filt Rate > 60; Glucose Random 96 mg/dL (60-115); Potassium 3.8 mmol/L (3.3-5.1); Sodium 140 mmol/L (135-145)
--- NOTE | 2022-09-08 00:38 | PC.NURSE ---
pt brought back from waiting room, appears well, in no apparent distress. Pt denies pain at this time, respiraitons even and unlabored, normal sinus rhythm on the monitor in the 70s awaiting lab results to come back at this time
[2022-09-08 00:42] LABS: Basophils Percent Auto 0.3 % (0-2); Eosinophils Absolute Auto 0.1 X10*3/uL (0.0-0.4); Eosinophils Percent Auto 1.8 % (0-4); Hematocrit 34.3 % (37.0-47.0); Hemoglobin 11.6 g/dl (12.0-16.0); Imm Gran Abs Auto 0.01 X10*3/uL (0.00-0.03); Imm Gran Pct Auto 0.1 % (0.0-0.4); Lymphocytes Absolute Auto 3.1 X10*3/uL (1.2-4.9); Lymphocytes Percent Auto 39.8 % (20-40); Mean Corpuscular HGB Conc 33.8 g/dl (31.0-35.0); Mean Corpuscular Hemoglobin 30.5 pg (27.0-33.0); Mean Corpuscular Volume 90.3 fL (80.0-98.0); Mean Platelet Volume 9.9 fL (9.4-12.3); Monocytes Absolute Auto 0.5 X10*3/uL (0.1-1.2); Monocytes Percent Auto 6.7 % (2-11); Neutrophils Percent Auto 51.3 % (45-73); Platelet Count 232 X10*3/uL (160-400); Red Cell Distribution Width 12.3 % (11.0-16.0); White Blood Count 7.8 X10*3/uL (4.8-10.8)
[2022-09-08 00:44] LABS: Troponin-I High Sensitivity < 2.7 ng/L (<3.5-17.0)
[2022-09-08] MEDS: LORazepam 0.5 MG TABLET PO (00:49)
== END 2022-09-08 00:52 | disposition home or self-care (01) ==
PROVIDERS: Emergency Provider Internal Medicine; PCP Internal Medicine
DX: R07.89 Other chest pain (principal); F41.0 Panic disorder [episodic paroxysmal anxiety]; Z79.899 Other long term (current) drug therapy
CPT/HCPCS: 36415; 71046; 80048; 84484; 85025; 93005; 99283

== ENCOUNTER 2022-12-30 23:29 | Emergency (ER) | payer MEDICAID, SELFPAY ==
--- NOTE | ~2022-12-30 | XR_ITS ---
EXAMINATION: XR HAND, RIGHT CLINICAL INFORMATION: Injury. Pain. COMPARISON: None available. TECHNIQUE: PA, lateral, and oblique views of the right hand. FINDINGS: The bones and soft tissues are normal. No fracture. Alignment is anatomic. Joint spaces are maintained. No erosions or soft tissue calcifications. XR/XR hand RT 2V IMPRESSION: No significant abnormality.
--- NOTE | ~2022-12-30 | XR_ITS ---
EXAMINATION: XR HAND, LEFT CLINICAL INFORMATION: Injury. Pain. COMPARISON: None available. TECHNIQUE: PA, lateral, and oblique views of the left hand. FINDINGS: The bone mineralization is normal. No fracture. Alignment is anatomic. Joint spaces are maintained. No erosions or soft tissue calcifications. There is soft tissue swelling along the medial dorsal of the hand with apparent laceration the level of the carpophalangeal joint. XR/XR hand LT 2V IMPRESSION: No acute osseous abnormality. Soft tissue swelling along the medial dorsum of the hand with a possible associated laceration.
[2022-12-30 23:48] VITALS: BP 126/72; PULSE 78; RESP 16; TEMP 36.7; O2SAT 98; BMI 24.4
[2022-12-31 02:00] VITALS: BP 66/31; PULSE 46; RESP 15; TEMP 36.2; O2SAT 97
[2022-12-31 02:25] VITALS: BP 88/42; PULSE 46; RESP 16; TEMP 36.2; O2SAT 97
--- NOTE | 2022-12-31 02:25 | PC.NURSE ---
Patient had a vasovagal episode at this time. RN and MD called to bedside. Patient was put in trendelenburg and FS done. Patient currently being sutured by
[2022-12-31 02:26] VITALS: BP 116/57; PULSE 87; RESP 18; TEMP 36.7; O2SAT 100
[2022-12-31 02:29] LABS: Glucose, Whole Blood 87 mg/dL (60-115)
--- NOTE | 2022-12-31 02:31 | MHC.EDTECH ---
patient blood pressure check it was low ,rn aware ,patient drank 240 ml orange juice ,pt blood pressure stable ,blood sugar check ,Patient feeling better .
--- NOTE | 2022-12-31 02:54 | ED_ITS ---
HPI - Wound/Laceration General Chief Complaint: Wound/Laceration Stated Complaint: Cut on left hand Time Seen by Provider: 12/31/22 02:21 Source: patient Mode of arrival: ambulatory Limitations: no limitations History of Present Illness HPI narrative: Patient anger punched a glass mirror give with laceration left lateral aspect of the hand with complaining of pain in the right hand no laceration of the right hand Related Data Home Medications Medication Instructions Recorded Confirmed quetiapine 50 mg tablet 50 mg PO BEDTIME 04/26/21 06/14/21 Previous Rx's Medication Instructions Recorded cyclobenzaprine 10 mg tablet 10 mg PO TID PRN muscle spasm #14 09/10/20 tabs ibuprofen 600 mg tablet 600 mg PO Q6H PRN pain #30 tabs 09/10/20 nitrofurantoin 100 mg PO BID 7 days #14 caps 09/10/20 monohydrate/macrocrystals 100 mg capsule (Macrobid) tramadol 50 mg tablet 50 mg PO Q8H PRN pain #5 tabs 11/16/20 nitrofurantoin 100 mg PO Q12H 7 days #14 caps 12/18/21 monohydrate/macrocrystals 100 mg capsule (Macrobid) Allergies Allergy/AdvReac Type Severity Reaction Status Date / Time No Known Allergies Allergy Verified 09/08/22 00:05 Review of Systems 2 Review of Systems: Yes all other systems are reviewed and are negative [facility] Past Medical History Medical History delivery delivered Hernia Anemia Surgical History History of hemorrhoidectomy (2015) History of ventral hernia repair (2017) History of umbilical hernia repair (11/17/13) History of delivery (02/2013) Hx of appendectomy Family History Family History Father No problems noted. Mother No problems noted. Maternal Grandfather Cancer of unknown origin Social History Social History Alcohol intake: never Patient Tobacco Use Status: Never used Tobacco Advance Directives: No Advance Directives Information Provided: Yes Physical Exam 2 Vital Signs: Vital Signs: Last Vital Signs Temp 98.9 F 12/31/22 02:59 Pulse 83 12/31/22 02:59 Resp 16 12/31/22 02:59 BP 117/64 12/31/22 02:59 Pulse Ox 98 12/31/22 02:59 O2 Del Method Room Air 12/31/22 02:59 BMI result Body Mass Index 24.4 Extrem: Hand/finger images: 1. 3 cm long laceration visible cut extensor tendon, but good range of movements of the 5th toe finger including flexion and extension neurovascular intact Medical Decision Making Medical Decision Making MDM Narrative: Patient with laceration on dorsum of the lateral aspect of the right hand with visible cut extensor tendon of right 5th finger medial head but patient had good range of movement of right 5th finger neurovascular intact unable to see the proximal end of attendant distal end of the tendon was sutured using Vicryl sutures 5 0 to the tendon sheath just before switching patient had a vasovagal episode after looking at her wound improved after p.o. fluids Lab Data Labs: Lab Results 12/31/22 Range/Units 02:21 POC Glucose 87 (60-115) mg/dL Procedures Laceration Laceration 1: Site: hand Side (If applicable): left Size (cm): 4 Description: linear Depth: simple, single layer and involves tendon Local Anesthetic: lidocaine 1% Amount of anesthesia used (mL): 4 Skin layer closed with: vicryl Size (cm): 5-0 Number of sutures: 6 Technique: simple, interrupted Tendon layer closed with: vicryl Size: 5-0 Number of sutures: 1 Technique: simple interrupted Discharge Plan Discharge Clinical Impression: Laceration, Extensor tendon laceration, hand, open wound Patient Disposition: Home, Self-Care Instructions: Laceration (ED), Tendon Laceration (ED) Additional Instructions: local care as an suture removal in 10 days see orthopedics for partial tendon laceration Prescriptions: No Action tramadol 50 mg tablet 50 mg PO Q8H PRN (Reason: pain) Qty: 5 0RF cyclobenzaprine 10 mg tablet 10 mg PO TID PRN (Reason: muscle spasm) Qty: 14 0RF ibuprofen 600 mg tablet 600 mg PO Q6H PRN (Reason: pain) Qty: 30 0RF nitrofurantoin monohyd/m-cryst [Macrobid] 100 mg capsule 100 mg PO BID 7 Days Qty: 14 0RF Rx Instructions: must administer with a meal/food nitrofurantoin monohyd/m-cryst [Macrobid] 100 mg capsule 100 mg PO Q12H 7 Days Qty: 14 0RF Rx Instructions: must administer with a meal/food quetiapine 50 mg tablet 50 mg PO BEDTIME Referrals: Dakota Teran MD [Physician] - 3 days Discharge Date/Time: 12/31/22 03:23
[2022-12-31 02:59] VITALS: BP 117/64; PULSE 83; RESP 16; TEMP 37.2; O2SAT 98
== END 2022-12-31 03:23 | disposition home or self-care (01) ==
PROVIDERS: Emergency Provider Internal Medicine; PCP Internal Medicine
DX: S61.412A Laceration without foreign body of left hand, initial encounter (principal); S66.326A Laceration of extensor muscle, fascia and tendon of right little finger at wrist and hand level, initial encounter; W22.8XXA Striking against or struck by other objects, initial encounter; R55 Syncope and collapse; Y93.9 Activity, unspecified; Y92.9 Unspecified place or not applicable; Y99.9 Unspecified external cause status
CPT/HCPCS: 12002; 26418; 73120; 82947; 99283; 99284

== ENCOUNTER 2023-01-03 12:16 | Outpatient (AMB) | payer MEDICAID, SELFPAY ==
[2023-01-03 12:28] VITALS: BMI 24.4
--- NOTE | 2023-01-03 12:28 | A.OFFVIS_ITS ---
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 States on 12/31/22 . Patient states she pulled a towel off a loose mirror on the wall, mirror fell off and a sharp piece cut her left hand by base of her pinky. Seen in ED where xrays were taken, and concerns of a tendon laceration. States she received 9 stitches nd referred to be ev aluated by a orthopedic. 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 She was seen at ED where x-rays were performed, 9 stitches were placed and she was referred to our office. [facility] Medical History delivery delivered Hernia Anemia Surgical History History of hemorrhoidectomy (2015) History of ventral hernia repair (2017) History of umbilical hernia repair (11/17/13) History of delivery (02/2013) Hx of appendectomy Family History Father No problems noted. Mother No problems noted. 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 Review of Systems Const All systems reviewed & are unremarkable except as noted in HPI and below Physical Exam Vital Signs: BMI result Body Mass Index 24.4 Const General: cooperative, healthy appearing, comfortable, no acute distress, well developed and alert Orientation/consciousness: patient oriented x3 HEENT Head: Yes normal to inspection, Yes normocephalic and Yes atraumatic Eyes General: appearance normal, both eyes and all related structures Resp Effort & Inspection: normal respiratory effort and able to speak in complete sentences Cardio Rate: regular rate Peripheral pulses: Peripheral pulses 2+ throughout GI Palpation (GI): Soft to palpation Skin Lesions: no lesions Rashes: no rashes Neuro General: patient oriented x3 Extrem Other: Left hand: Laceration located just proximal to the MCP of the small finger is clean, dry and intact. Sutures are intact. FDP and FDS are intact. She can extend the digit without significant extension extension lag. NVI. Assessment & Plan Assessment & Plan (1) Extensor tendon laceration, hand, open wound: Code(s): S66.829A - Laceration of other specified muscles, fascia and tendons at wrist and hand level, unspecified hand, initial encounter; S61.409A - Unspecified open wound of unspecified hand, initial encounter Qualifiers: Encounter type: initial encounter Laterality: left Qualified Code(s): S66.822A - Laceration of other specified muscles, fascia and tendons at wrist and hand level, left hand, initial encounter; S61.402A - Unspecified open wound of left hand, initial encounter Plan At this time, it seems like the extensor tendon is intact which would not require surgical intervention at this time. Sutures will remain intact for another week. The laceration site was redressed with some bacitracin and gauze. She will see me back on Friday for wound check and potential staple removal, sooner if needed. Patient Instructions: Scribed for Ed Snell PA-C, by Prem Vizcarra medical claims specialist, on 01/03/2023 at 12:30 PM EST. I, Ed Snell PA-C, have personally reviewed and agree with the information entered by the scribe. Coding Level of Care Code New Pt Level 3 (90516) Diagnoses Extensor tendon laceration of left hand with open wound, initial encounter S66.822A; S61.402A Encounter type: initial encounter Laterality: left
== END 2023-01-03 13:04 | disposition home or self-care (01) ==
PROVIDERS: PCP Internal Medicine; Visit Provider Physician Assistant
DX: S66.822A Laceration of other specified muscles, fascia and tendons at wrist and hand level, left hand, initial encounter (principal); S61.402A Unspecified open wound of left hand, initial encounter
CPT/HCPCS: 99203

== ENCOUNTER → 2023-01-03 12:16 | Outpatient (BNVA) | payer MEDICAID, SELFPAY | PROVIDERS: PCP Internal Medicine; Visit Provider Physician Assistant | DX: S66.327A Laceration of extensor muscle, fascia and tendon of left little finger at wrist and hand level, initial encounter (principal) | CPT/HCPCS: 99212 ==

== ENCOUNTER 2023-01-07 10:15 | Outpatient (REF) | payer MEDICAID, SELFPAY ==
[2023-01-07 13:00] LABS: Cholesterol 157 mg/dL (<200); HDL Cholesterol 50 mg/dL (>40); LDL Cholesterol Calculated 93 mg/dL (<100); Triglycerides 70 mg/dL (<150)
[2023-01-07 13:05] LABS: Anion Gap 9 (12-20); Blood Urea Nitrogen 12 mg/dL (9-16); Calcium 9.6 mg/dL (8.4-10.2); Carbon Dioxide 26 mmol/L (22-29); Chloride 107 mmol/L (96-108); Estimated Glomerular Filt Rate > 60; Glucose Random 83 mg/dL (60-115); Potassium 3.9 mmol/L (3.3-5.1); Sodium 138 mmol/L (135-145)
[2023-01-07 13:15] LABS: TSH reflex Free T4 1.31 uIU/mL (0.32-4.0); Vitamin D 25-OH Total 29.5 ng/mL (>30)
[2023-01-07 13:31] LABS: Folate 9.9 ng/mL (> or = 4.0); Vitamin B12 422 pg/mL (200-900)
[2023-01-07 15:36] LABS: Reflex LDLD? No
[2023-01-08 08:29] LABS: HBS Num1 0.91 mIU/mL (0-7.99); HBc Num1 0.08 S/CO (0.00-0.79); HBsAGNum1 0.34 S/CO (0.00-0.99); Hepatitis A Antibody IgM 0.19 Index (0-0.79); Hepatitis B Core Antibody Nonreactive (Nonreactive); Hepatitis B Surface Antigen Negative (Negative); ~HepC Num1 0.09 S/CO (0.00-0.79); ~Hepatitis A Antibody IgM Nonreactive (Nonreactive); ~Hepatitis B Surface Antibody NONREACTIVE (Nonreactive); ~Hepatitis C Antibody Nonreactive (Nonreactive)
[2023-01-08 13:04] LABS: Rubella IgG Antibody 1.75 Index
[2023-01-09 20:15] LABS: TS Negative Control Passed; TS Panel A 0; TS Panel B 1; TS Positive Control Passed; TSpotTB Negative (Negative)
== END 2023-01-07 10:16 | disposition home or self-care (01) ==
LOC: HO.HHCL 10:15
PROVIDERS: Visit Provider Internal Medicine
DX: Z00.00 Encounter for general adult medical examination without abnormal findings (principal); M77.8 Other enthesopathies, not elsewhere classified; L65.9 Nonscarring hair loss, unspecified; G43.009 Migraine without aura, not intractable, without status migrainosus
CPT/HCPCS: 36415; 80048; 80061; 82306; 82607; 82746; 84443; 86481; 86704; 86706; 86709; 86735; 86762; 86765; 86803; 87340

== ENCOUNTER 2023-01-08 09:47 | Outpatient (AMB) | payer MEDICAID, SELFPAY ==
--- NOTE | 2023-01-08 10:02 | A.OFFVIS_ITS ---
Intake Intake Visit Reasons: OV-incision check Left small finger Intake Note: Nichol a 27 year old right hand dominant female who presents today for a wound check and possible suture removal of left small finger laceration, DOI 12/31/22. Allergies No Known Allergies Allergy (Verified 01/03/23 12:32) HPI OV-incision check Left small finger HPI Details 27-year-old right hand dominant female migue bhardwaj returns to the office today for a follow-up of left small finger laceration, 12/31/22. She continues to have pain in her finger She has no other concerns today. [facility] Medical History delivery delivered Hernia Anemia Surgical History History of hemorrhoidectomy (2015) History of ventral hernia repair (2017) History of umbilical hernia repair (11/17/13) History of delivery (02/2013) Hx of appendectomy Family History Father No problems noted. Mother No problems noted. 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 Review of Systems Const All systems reviewed & are unremarkable except as noted in HPI and below Physical Exam Const General: cooperative, healthy appearing, comfortable, no acute distress, well developed and alert Orientation/consciousness: patient oriented x3 HEENT Head: Yes normal to inspection, Yes normocephalic and Yes atraumatic Eyes General: appearance normal, both eyes and all related structures Resp Effort & Inspection: normal respiratory effort and able to speak in complete sentences Cardio Rate: regular rate Peripheral pulses: Peripheral pulses 2+ throughout GI Palpation (GI): Soft to palpation Skin Lesions: no lesions Rashes: no rashes Neuro General: patient oriented x3 Extrem Other: Left hand: Laceration located just proximal to the MCP of the small finger is clean, dry and intact. Sutures are intact. FDP and FDS are intact. She can extend the digit without an extension lag; however she has significant pain when doing so. NVI. Assessment & Plan Assessment & Plan (1) Extensor tendon laceration, hand, open wound: Code(s): S66.829A - Laceration of other specified muscles, fascia and tendons at wrist and hand level, unspecified hand, initial encounter; S61.409A - Unspecified open wound of unspecified hand, initial encounter Qualifiers: Encounter type: initial encounter Laterality: left Qualified Code(s): S66.822A - Laceration of other specified muscles, fascia and tendons at wrist and hand level, left hand, initial encounter; S61.402A - Unspecified open wound of left hand, initial encounter Plan I reviewed the case with Dr. Mathews and this is something that may benefit from surgical intervention to explore the extent of the damage of if torn, repair. I explained the extent of the injury and options to the patient which includes repair of the left small finger tendon laceration. I did explain to her that this takes anywhere from 6-12 weeks to fully recover from as there needs to be a period of immobilization and then some potential physical therapy. I discussed with her the risks, benefits and alternatives to the procedure. Risks including, but not limited to infection, re-rupture of the tendon, stiffness. She does understand all this and would like to proceed with exploration left small finger with possible tendon extensor repair with Dr. Mathews. She will be booked accordingly. Patient Instructions: Scribed for Ed Snell PA-C, by Prem Vizcarra biomedical service engineer, on 01/08/2023 at 9:45 AM EST. I, Ed Snell PA-C, have personally reviewed and agree with the information entered by the scribe. Coding Level of Care Code Est Pt Level 4 (15327) Diagnoses Extensor tendon laceration of left hand with open wound, initial encounter S66.822A; S61.402A Encounter type: initial encounter Laterality: left
== END 2023-01-08 11:42 | disposition home or self-care (01) ==
PROVIDERS: PCP Internal Medicine; Visit Provider Physician Assistant
DX: S66.822A Laceration of other specified muscles, fascia and tendons at wrist and hand level, left hand, initial encounter (principal); S61.402A Unspecified open wound of left hand, initial encounter
CPT/HCPCS: 99214

== ENCOUNTER → 2023-01-08 09:47 | Outpatient (BNVA) | payer MEDICAID, SELFPAY | PROVIDERS: PCP Internal Medicine; Visit Provider Physician Assistant | DX: S66.822D Laceration of other specified muscles, fascia and tendons at wrist and hand level, left hand, subsequent encounter (principal); S61.402D Unspecified open wound of left hand, subsequent encounter | CPT/HCPCS: 99212 ==

== ENCOUNTER 2023-01-13 06:33 | Day surgery (SDC) | payer MEDICAID, SELFPAY ==
[2023-01-13] VITALS (8 sets, daily range): BP systolic 107–119; BP diastolic 56–75; PULSE 67–86; RESP 16; TEMP 36.1–37; O2SAT 98–100; BMI 24.4
[2023-01-13 07:12] LABS: UPreg QC Valid YES; Urine Pregnancy NEGATIVE (NEGATIVE)
[2023-01-13] MEDS: Lactated Ringers 1,000 ML 100 ML IVCONT (07:15)
--- NOTE | 2023-01-13 07:15 | HO.ANESPROP2 ---
Documented by User: Pham Suarez NP 01/08/23 12:30 HPI - Anesthesia Eval Consult details Narrative: 27yo F for Left Exportation of Small finger Extensor Tendon Repair PMFSH Active Problems Active Problems: All Active Problems (Updated 01/01/23 @ 00:01 by Kevin Philippe) Ventral hernia (Acute) COVID-19 (Acute) Past Medical History Medical History delivery delivered Hernia Anemia Family History Family History Father No problems noted. Mother No problems noted. 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 Meds Allergies Allergy/AdvReac Type Severity Reaction Status Date / Time No Known Allergies Allergy Verified 01/03/23 12:32 Home Medications Medication Instructions Recorded Confirmed Last Taken Type quetiapine 50 mg tablet 50 mg PO BEDTIME 04/26/21 06/14/21 Unknown History hydroxyzine HCl 10 mg tablet mg PO 01/03/23 Unknown History Exam Exam Date and Time: January 08, 2023 1229 Pertinent Lab Results Pertinent Lab Results: Laboratory Tests 09/08/22 01/07/23 00:16 10:20 WBC 7.8 Hgb 11.6 L Hct 34.3 L Plt Count 232 Sodium 138 Potassium 3.9 Chloride 107 Carbon Dioxide 26 BUN 12 Creatinine 0.78 Narrative Narrative: EKG 08/2022 Vent. Rate : 074 BPM Atrial Rate : 074 BPM P-R Int : 198 ms QRS Dur : 096 ms QT Int : 372 ms P-R-T Axes : 057 066 046 degrees QTc Int : 412 ms Normal sinus rhythm Normal ECG When compared with ECG of 12-AUG-2021 13:22, Vent. rate has increased BY 25 BPM Assessment and Plan Assessment Anesthesia Assessment: Chart Reviewed Documented by User: Cecilia Moss DO 01/13/23 07:23 [facility] Past Medical History Medical History delivery delivered Hernia Anemia Family History Family History Father No problems noted. Mother No problems noted. Maternal Grandfather Cancer of unknown origin Family history of problems with anesthesia: No Surgical History Surgical History History of hemorrhoidectomy (2015) History of ventral hernia repair (2017) History of umbilical hernia repair (11/17/13) History of delivery (02/2013) Hx of appendectomy History of Problems with Anesthesia: No Social History Social History Alcohol intake: never Patient Tobacco Use Status: Never used Tobacco Use of substances other than those prescribed or required for medical reasons: No Are you DNR?: No Advance Directives: No Advance Directives Information Provided: Yes Advance Directives on File: No Current occupational status: unemployed 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 Meds Allergies Allergy/AdvReac Type Severity Reaction Status Date / Time No Known Allergies Allergy Verified 01/03/23 12:32 Home Medications Medication Instructions Recorded Confirmed Last Taken Type quetiapine 50 mg tablet 50 mg PO BEDTIME 04/26/21 06/14/21 Unknown History hydroxyzine HCl 10 mg tablet mg PO 01/03/23 Unknown History Exam Exam Date and Time: January 13, 2023 0715 Height,Weight and Vital Signs: Height 5 ft Weight 56.699 kg Vital Signs Temperature 98.6 F 01/13/23 07:07 Pulse Rate 77 01/13/23 07:07 Respiratory Rate 16 01/13/23 07:07 Blood Pressure 116/75 01/13/23 07:07 Pulse Oximetry 98 01/13/23 07:07 Oxygen Delivery Method Room Air 01/13/23 07:07 Temperature 98.6 F 01/13/23 07:07 Pulse Rate 77 01/13/23 07:07 Respiratory Rate 16 01/13/23 07:07 Blood Pressure 116/75 01/13/23 07:07 Pulse Oximetry 98 01/13/23 07:07 Oxygen Delivery Method Room Air 01/13/23 07:07 Airway Mallampati Class: I TM Dist: >3cm Neck ROM: Full Heart: S1S2 Lungs: CTAB Other: braces Assessment and Plan Assessment Anesthesia Assessment: Anesthesia Plan Discussed and Chart Reviewed Final Anesthetic Review Family History of Problems with Anesthesia: No History of Problems with Anesthesia: No NPO: Yes ASA Class: I Final Preanesthetic Review: No Changes in Pt Med Stat, Meds/Allgs Chart Reviewed, Consent Obtained/Reviewed and Anes Risks/Benef Reviewed Patient Risk: Low Procedure Risk: Low Anesthetic Plan Anesthetic Plan: GA and Agree w/ Assess. and Plan Disposition: Standard PACU
--- NOTE | 2023-01-13 09:18 | P.OP_ITS ---
Operative Note Operative Note Date of Service: 01/13/23 Narrative: Operative Note Narrative: Preop diagnosis: 1. Left small finger extensor tendon lacerations at MCP joint Postop diagnosis: Same Procedure: 1. Left small finger extensor digitorum quinti tendon repair 2. Left small finger repair of abductor digiti minimi 3. Ulnar nerve block Surgeon: Roshni Mathews MD Anesthesia: General Anesthesia Findings: Transverse laceration across left small finger MCP joint with laceration of the EDQ tendon and the abductor digital minimi tendons. Implants: None Tourniquet time: 31 minutes EBL: 5.0 ml Specimen: None Drains: None Complications: None Disposition: Brought to the recovery room in stable condition Plan: Follow-up in 10-14 days for wound check, suture removal and placement in a short-arm finger spica cast with the MCP joint placed in about 40 degrees of flexion Anticipate cast removal at 5 weeks postop with early OT Indications: The patient is a 27 year old woman with a laceration over the dorsal aspect of her left 5th MCP joint with extensor tendon lacerations . The risks and benefits of operative treatment, including but not limited to risk of damage to blood vessels, nerves, tendons, infection, recurrence, persistent pain or numbness, incomplete resolution of preoperative symptoms, or need for further surgery were discussed with the patient and they wished to proceed with surgery. Procedure: Once consent was obtained patient was brought back to the operating suite and placed in the operating table in a supine position. . Perioperative antibiotics and anesthesia was administered by the anesthesia team. A t ourniquet was applied to the proximal aspect of the left upper extremity and the limb was prepped and draped in a standard surgical fashion. The limb was elevated exsanguinated with Esmarch bandage and the tourniquet inflated to 250 mm of mercury for a total tourniquet time of 31 minutes. The sutures were removed from the 2 cm mostly transverse laceration over the MCP joint of the left hand. Tenotomy scissors were used to then dissect down to the extensor tendons over the 5th MCP joint. She was noted to have transverse lacerations of the EDQ tendon and the abductor digiti minimi tendon with some radial subluxation of the intact portion of the extensor mechanism. Wound was copiously irrigated with normal saline. There were a couple of loose absorbable sutures that were removed from the tendon. These had been placed in the emergency department. I debrided the ends of the tendons using tenotomy scissors. I then repaired the EDQ tendon using some 4-0 FiberWire. I then repaired the abductor digiti minimi tendon using some 4-0 FiberWire. Good small finger range of motion with passive wrist range of motion after tendon repair. At this point the tourniquet was deflated and hemostasis obtained with a brief period of local pressure and bipolar electrocautery. The wound was copiously irrigated with normal saline. The skin edges were reapproximated with 5-0 nylon suture. The wound was infiltrated with some 1% lidocaine with epinephrine for postop pain control and a sterile dressing and an ulnar gutter splint was applied allowing for some PIP motion The patient appears to have tolerated the procedure well and with no complications. All digits were well vascularized conclusion of the case.
--- NOTE | 2023-01-13 09:18 | MHC.SHP ---
Pre-Procedural Eval Section A Date of Service: 01/13/23 The patient is an INPATIENT: No Changes since office visit: No Cold of Flu in the past 2 weeks, No New Medical Problems, No Changes in Medication and No Patient answered all questions The History & Physical has been completed within 30 days and I have reviewed it.: Yes Section B Chief Complaint: Laceration of extensor muscle, fascia and tendon o Allergies: Allergies Allergy/AdvReac Type Severity Reaction Status Date / Time No Known Allergies Allergy Verified 01/03/23 12:32 Plan I have reviewed the history and physical and performed a pertinent physical examination on my patient. No changes have occurred unless specified. Time Spent With Patient Time: Total time managing care of this patient today ____ minutes.
== END 2023-01-13 11:18 | disposition home or self-care (01) ==
PROVIDERS: Nurse Practitioner; PCP Internal Medicine; Visit Provider Orthopaedic Surgery
PROC: (CPT 26418; principal; 2023-01-13 07:30)
DX: S66.327A Laceration of extensor muscle, fascia and tendon of left little finger at wrist and hand level, initial encounter (principal); S61.412A Laceration without foreign body of left hand, initial encounter; X58.XXXA Exposure to other specified factors, initial encounter; Y93.9 Activity, unspecified; Y92.9 Unspecified place or not applicable; Y99.9 Unspecified external cause status
CPT/HCPCS: 26418 ×2; 81025; J0690; J1100; J2250; J2405; J2795; J3010

== ENCOUNTER → 2023-01-13 06:33 | Outpatient (BNV) | payer MEDICAID, SELFPAY | PROVIDERS: PCP Internal Medicine; Visit Provider Orthopaedic Surgery | DX: S66.327A Laceration of extensor muscle, fascia and tendon of left little finger at wrist and hand level, initial encounter (principal) | CPT/HCPCS: 26418 ==

== ENCOUNTER 2023-01-17 11:17 | Outpatient (AMB) | payer MEDICAID, SELFPAY ==
--- NOTE | 2023-01-17 11:29 | MHC.OFFVIS ---
Intake Intake Visit Reasons: PO Left I&D 01/09/23AR Intake Note: This is a 27 year old female who presents for a post operative appointment for a left I&D on 01/09/23 by AR. The patient reports with some movement. She still has the splint on right now. Allergies No Known Allergies Allergy (Verified 01/17/23 11:30) Medication List - Last Reconciled 01/17/23 by Cecilia Dyer RN cyclobenzaprine 10 mg PO TID PRN hydrocodone-acetaminophen 5-325 mg 1 tab PO Q4-6H PRN hydroxyzine HCl mg PO ibuprofen 600 mg PO Q6H PRN nitrofurantoin monohyd/m-cryst 100 mg (Macrobid) 100 mg PO BID 7 days nitrofurantoin monohyd/m-cryst 100 mg (Macrobid) 100 mg PO Q12H 7 days quetiapine 50 mg PO BEDTIME HPI PO Left I&D 01/09/23AR HPI Details The patient is a 27-year-old woman who is status post left small finger extensor tendon repairs at the MCP joint with me on 01/13/2023. This was just 4 days ago. She says that she is doing well. It sounds like she was going to start a new job which would likely require grabbing objects. She would like a note if possible. COUNTS INCLUDE 234 BEDS AT THE [facility] Medical History delivery delivered Hernia Anemia Surgical History History of hemorrhoidectomy (2015) History of ventral hernia repair (2017) History of umbilical hernia repair (11/17/13) History of delivery (02/2013) Hx of appendectomy Family History Father No problems noted. Mother No problems noted. 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 Her incision appears to be healing well with no erythema drainage or evidence of infection. She is keeping the hand at rest on the desk. She is comfortable. Assessment & Plan Assessment & Plan (1) Extensor tendon laceration of finger with open wound: Code(s): S56.429A - Laceration of extensor muscle, fascia and tendon of unspecified finger at forearm level, initial encounter; S61.209A - Unspecified open wound of unspecified finger without damage to nail, initial encounter Plan Assessment and plan: 1. Left small finger EDQ tendon status post repair 2. Left small finger abductor digiti minimi tendon status post repair Date of injury 12/31/2022 Date of surgery 01/13/2023 She appears to be doing well postop but is only 4 days postop. Were placing a new dressing on the wound and placing her back into her operative splint. Follow-up late next week for wound check suture removal and placement in a short-arm finger spica cast. Please do not ask her to make a fist and any time during clinic. The tendons are healing. The finger spica cast should include the small and ring fingers and have the MCP joints at about 45 degrees of flexion. She should not have full flexion at the PIP joint but can have a small amount of motion at the small finger PIP joint. More motion at the ring finger PIP joint is allowed if that works for the cast. Go ahead and set up an OT appointment for her to be seen the same day but after her cast is removed. Let them know about the tendon repair and date and asked him to work on tendon gliding and gentle range of motion. This cast should be in place for 4 weeks. At that time she should have a follow-up in likely be seen the same day with OT hand therapy Coding Level of Care Code Global (04465) Diagnoses Extensor tendon laceration of finger with open wound S56.429A; S61.209A
== END 2023-01-17 12:29 | disposition home or self-care (01) ==
PROVIDERS: PCP Internal Medicine; Visit Provider Orthopaedic Surgery
DX: S56.429A Laceration of extensor muscle, fascia and tendon of unspecified finger at forearm level, initial encounter (principal); S61.209A Unspecified open wound of unspecified finger without damage to nail, initial encounter
CPT/HCPCS: 99024

== ENCOUNTER → 2023-01-17 11:17 | Outpatient (BNVA) | payer MEDICAID, SELFPAY | PROVIDERS: PCP Internal Medicine; Visit Provider Orthopaedic Surgery ==

== ENCOUNTER 2023-01-21 16:24 | Outpatient (AMB) | payer MEDICAID, SELFPAY ==
--- NOTE | 2023-01-21 16:30 | MHC.OFFVIS ---
Intake Intake Visit Reasons: P/O PO Left SF I&D 01/09/23AR Allergies No Known Allergies Allergy (Verified 01/17/23 11:30) HPI P/O PO Left SF I&D 01/09/23AR HPI Details 27-year-old female who presents in the office today for a splint change; 12 days status post left small finger extensor digitorum quinti tendon repair and repair of abductor digital minimi tendon with ulnar nerve block, which was performed on 01/09/[address] Mathews. She reached into the bathtub water that was unused and clean to get her phone that dropped in to it. The bandages and splint were soaked and therefore, she removed it and presented to the office. [facility] Medical History delivery delivered Hernia Anemia Surgical History History of hemorrhoidectomy (2015) History of ventral hernia repair (2017) History of umbilical hernia repair (11/17/13) History of delivery (02/2013) Hx of appendectomy Family History Father No problems noted. Mother No problems noted. 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 Sutures intact. No surrounding erythema or drainage. No signs of infection. NVI. Office Procedures Casting/Splints Other Splint (finger spica splint ) Procedure code (CPT) selection complete Assessment & Plan Assessment & Plan (1) Extensor tendon laceration of finger with open wound: Code(s): S56.429A - Laceration of extensor muscle, fascia and tendon of unspecified finger at forearm level, initial encounter; S61.209A - Unspecified open wound of unspecified finger without damage to nail, initial encounter Qualifiers: Encounter type: subsequent encounter Qualified Code(s): S56.429D - Laceration of extensor muscle, fascia and tendon of unspecified finger at forearm level, subsequent encounter; S61.209D - Unspecified open wound of unspecified finger without damage to nail, subsequent encounter Plan Ms. Cecilio Harry is a 27-year-old female who presents in the office today for a splint change; 12 days status post left small finger extensor digitorum quinti tendon repair and repair of abductor digital minimi tendon with ulnar nerve block, which was performed on 01/09/[address] Mathews. She reached into the bathtub water that was unused and clean to get her phone that dropped in to it. The bandages and splint were soaked and therefore, she removed it and presented to the office. The patient was placed in a new finger spica splint, custom made, in the office today. She was also prescribed Augmentin-pot clavulanate 500-125 mg PO Q12H for 10 days, which was sent to the pharmacy, as a prophylaxis. She was educated on signs of infection, which are as follows but not limited to erythema, edema, drainage, or warmth. If she is to experience any of these symptoms she is to contact the office immediately or present to the ED. Her follow up will be at her regularly scheduled appointment on Friday01/24/2023 for a wound check, or sooner if needed. Medications: New amoxicillin-pot clavulanate 500-125 mg (Augmentin) 1 tab PO Q12H 10 days 20 tabs 0RF Patient Instructions: Scribed for Zenaida Perkins PA-C by Karla Jeff emergency medical service manager, on 01/21/2023 at 4:28 pm, EST. Coding Level of Care Code Global (52133) Diagnoses Extensor tendon laceration of finger with open wound, subsequent encounter S56.429D; S61.209D Encounter type: subsequent encounter
== END 2023-01-21 16:38 | disposition home or self-care (01) ==
PROVIDERS: PCP Internal Medicine; Visit Provider Physician Assistant
DX: S56.429D Laceration of extensor muscle, fascia and tendon of unspecified finger at forearm level, subsequent encounter (principal); S61.209D Unspecified open wound of unspecified finger without damage to nail, subsequent encounter
CPT/HCPCS: 99024

== ENCOUNTER → 2023-01-21 16:24 | Outpatient (BNVA) | payer MEDICAID, SELFPAY | PROVIDERS: PCP Internal Medicine; Visit Provider Physician Assistant ==

== ENCOUNTER 2023-01-24 13:14 | Outpatient (AMB) | payer MEDICAID, SELFPAY ==
--- NOTE | 2023-01-24 13:30 | MHC.OFFVIS ---
Intake Intake Visit Reasons: PO-Left I&D 01/09/23AR Intake Note: Nichol a 27 year old right hand dominant female who presents today for a wound check and possible suture removal of left small finger laceration, DOI 12/31/22. She states still having pain and discomfort but it does feel better than before. Allergies No Known Allergies Allergy (Verified 01/24/23 13:30) HPI PO-Left I&D 01/09/23AR HPI Details 27-year-old female who presents in the office today for a wound check; 2 weeks status post left small finger extensor digitorum quinti tendon repair and repair of abductor digital minimi tendon with ulnar nerve block, which was performed on 01/09/[address] Mathews. She states she is still having pain and discomfort but it does feel better than before. COUNT INCLUDES THE [facility] Medical History delivery delivered Hernia Anemia Surgical History History of hemorrhoidectomy (2015) History of ventral hernia repair (2017) History of umbilical hernia repair (11/17/13) History of delivery (02/2013) Hx of appendectomy Family History Father No problems noted. Mother No problems noted. 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 Sutures intact. No surrounding erythema or drainage. No signs of infection. NVI. Office Procedures Casting/Splints 60254-Saza/Wrist Cast Application Procedure code (CPT) selection complete Assessment & Plan Assessment & Plan (1) Extensor tendon laceration of finger with open wound: Code(s): S56.429A - Laceration of extensor muscle, fascia and tendon of unspecified finger at forearm level, initial encounter; S61.209A - Unspecified open wound of unspecified finger without damage to nail, initial encounter Qualifiers: Encounter type: subsequent encounter Qualified Code(s): S56.429D - Laceration of extensor muscle, fascia and tendon of unspecified finger at forearm level, subsequent encounter; S61.209D - Unspecified open wound of unspecified finger without damage to nail, subsequent encounter Plan Ms. Cecilio Harry is a 27-year-old female who presents in the office today for a wound check; 2 weeks status post left small finger extensor digitorum quinti tendon repair and repair of abductor digital minimi tendon with ulnar nerve block, which was performed on 01/09/[address] Mathews. She states she is still having pain and discomfort but it does feel better than before. Per Dr. Mathews last note she was placed in an ulnar gutter finger splint at 45 degrees for the next 4 weeks. After the 4 weeks it is anticipated she will be referred to occupational therapy. She has also continue to take her antibiotic after she submerged her splint in water on 01/17. She denies any increase in pain, erythema, drainage, or warmth. She will continue her antibiotics until complete. She will follow up as appropriate, or sooner if needed. Patient Instructions: Scribed for Zenaida Perkins PA-C by Karla Jeff medical csr, on 01/24/2023 at 1:23 pm, EST. Coding Level of Care Code Global (99161) Diagnoses Extensor tendon laceration of finger with open wound, subsequent encounter S56.429D; S61.209D Encounter type: subsequent encounter CPT Codes Casting - CPT: 04511-Oaby/Wrist Cast Application ([id number])
== END 2023-01-24 14:26 | disposition home or self-care (01) ==
PROVIDERS: PCP Internal Medicine; Visit Provider Physician Assistant
DX: S66.327A Laceration of extensor muscle, fascia and tendon of left little finger at wrist and hand level, initial encounter (principal)
CPT/HCPCS: 29085; 99024

== ENCOUNTER → 2023-01-24 13:14 | Outpatient (BNVA) | payer MEDICAID, SELFPAY | PROVIDERS: PCP Internal Medicine; Visit Provider Physician Assistant | DX: S56.429D Laceration of extensor muscle, fascia and tendon of unspecified finger at forearm level, subsequent encounter (principal); S61.209D Unspecified open wound of unspecified finger without damage to nail, subsequent encounter | CPT/HCPCS: 29085 ==

== ENCOUNTER 2023-01-29 08:51 | Outpatient (AMB) | payer MEDICAID, SELFPAY ==
--- NOTE | 2023-01-29 09:09 | MHC.OFFVIS ---
Intake Intake Visit Reasons: PO - left hip I&D, 01/06/23 NE Intake Note: Nichol a 27 year old right hand dominant female who presents today for a cast change s/p left small finger I&D, DOS 01/09/23. Patient reports discomfort/pain in cast. Allergies No Known Allergies Allergy (Verified 01/29/23 09:42) HPI PO - left hip I&D, 01/06/23 NE HPI Details Patient returns to the office today for a cast change due to discomfort PFSH Medical History delivery delivered Hernia Anemia Surgical History History of hemorrhoidectomy (2015) History of ventral hernia repair (2017) History of umbilical hernia repair (11/17/13) History of delivery (02/2013) Hx of appendectomy Family History Father No problems noted. Mother No problems noted. 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 Office Procedures Casting/Splints 65521-Yath/Wrist Cast Application Procedure code (CPT) selection complete Assessment & Plan Assessment & Plan (1) Extensor tendon laceration of finger with open wound: Code(s): S56.429A - Laceration of extensor muscle, fascia and tendon of unspecified finger at forearm level, initial encounter; S61.209A - Unspecified open wound of unspecified finger without damage to nail, initial encounter Qualifiers: Encounter type: subsequent encounter Qualified Code(s): S56.429D - Laceration of extensor muscle, fascia and tendon of unspecified finger at forearm level, subsequent encounter; S61.209D - Unspecified open wound of unspecified finger without damage to nail, subsequent encounter Plan: patient was placed in a finger spica cast today. she will return as planned. Coding Level of Care Code Global (42521) Diagnoses Extensor tendon laceration of finger with open wound, subsequent encounter S56.429D; S61.209D Encounter type: subsequent encounter CPT Codes Casting - CPT: 72867-Hqob/Wrist Cast Application ([id number])
== END 2023-01-29 09:59 | disposition home or self-care (01) ==
PROVIDERS: PCP Internal Medicine; Visit Provider Physician Assistant
DX: S56.42 Laceration of extensor muscle, fascia and tendon of other and unspecified finger at forearm level (principal); S61.217A Laceration without foreign body of left little finger without damage to nail, initial encounter
CPT/HCPCS: 29085; 99024

== ENCOUNTER → 2023-01-29 08:51 | Outpatient (BNVA) | payer MEDICAID, SELFPAY | PROVIDERS: PCP Internal Medicine; Visit Provider Physician Assistant | DX: S61.209D Unspecified open wound of unspecified finger without damage to nail, subsequent encounter (principal); S61.207D Unspecified open wound of left little finger without damage to nail, subsequent encounter | CPT/HCPCS: 29085 ==

== ENCOUNTER 2023-02-07 14:10 | Outpatient (AMB) | payer MEDICAID, SELFPAY ==
--- NOTE | 2023-02-07 14:14 | MHC.OFFVIS ---
Intake Intake Visit Reasons: PO-Left I&D 01/09/23AR Intake Note: Nichol is a 27 year old female who presets today for a post op appointment s/p left I&D 01/09/23 AR. Patient reports she is doing well. Allergies No Known Allergies Allergy (Verified 02/07/23 14:16) HPI PO-Left I&D 01/09/23AR HPI Details 27-year-old female who presents in the office today for a wound check; 1 month status post left small finger extensor digitorum quinti tendon repair and repair of abductor digital minimi tendon with ulnar nerve block, which was performed on 01/09/[address] Mathews. The patient reports she is doing well. [facility] Medical History delivery delivered Hernia Anemia Surgical History History of hemorrhoidectomy (2015) History of ventral hernia repair (2017) History of umbilical hernia repair (11/17/13) History of delivery (02/2013) Hx of appendectomy Family History Father No problems noted. Mother No problems noted. 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 No surrounding erythema or drainage. No signs of infection. NVI. Office Procedures Casting/Splints 82883-Epdg/Wrist Cast Application Procedure code (CPT) selection complete Assessment & Plan Assessment & Plan (1) Extensor tendon laceration of finger with open wound: Code(s): S56.429A - Laceration of extensor muscle, fascia and tendon of unspecified finger at forearm level, initial encounter; S61.209A - Unspecified open wound of unspecified finger without damage to nail, initial encounter Qualifiers: Encounter type: subsequent encounter Qualified Code(s): S56.429D - Laceration of extensor muscle, fascia and tendon of unspecified finger at forearm level, subsequent encounter; S61.209D - Unspecified open wound of unspecified finger without damage to nail, subsequent encounter Plan Ms. Cecilio Harry is a 27-year-old female who presents in the office today for a wound check; 1 month status post left small finger extensor digitorum quinti tendon repair and repair of abductor digital minimi tendon with ulnar nerve block, which was performed on 01/09/[address] Mathews. The patient reports she is doing well. The patient will be placed in a new finger spica cast, custom made, while in the office today. She will follow up at her regularly scheduled visit, or sooner if needed. Patient Instructions: Scribed for Zenaida Perkins PA-C by Karla Jeff certified medical dosimetrist, on 02/07/2023 at 2:14 pm, EST. Coding Level of Care Code Procedure Only Diagnoses Extensor tendon laceration of finger with open wound, subsequent encounter S56.429D; S61.209D Encounter type: subsequent encounter CPT Codes Casting - CPT: 89721-Qlyq/Wrist Cast Application ([id number])
== END 2023-02-07 14:58 | disposition home or self-care (01) ==
PROVIDERS: PCP Internal Medicine; Visit Provider Physician Assistant
DX: S56.42 Laceration of extensor muscle, fascia and tendon of other and unspecified finger at forearm level (principal); S61.207D Unspecified open wound of left little finger without damage to nail, subsequent encounter
CPT/HCPCS: 29085

== ENCOUNTER → 2023-02-07 14:10 | Outpatient (BNVA) | payer MEDICAID, SELFPAY | PROVIDERS: PCP Internal Medicine; Visit Provider Physician Assistant | DX: S56.428A Laceration of extensor muscle, fascia and tendon of left little finger at forearm level, initial encounter (principal); S61.217A Laceration without foreign body of left little finger without damage to nail, initial encounter; X58.XXXA Exposure to other specified factors, initial encounter; Y93.9 Activity, unspecified; Y92.89 Other specified places as the place of occurrence of the external cause; Y99.8 Other external cause status | CPT/HCPCS: 29085 ==

== ENCOUNTER 2023-02-21 12:23 | Outpatient (AMB) | payer MEDICAID, SELFPAY ==
--- NOTE | 2023-02-21 12:34 | MHC.OFFVIS ---
Intake Intake Visit Reasons: PO-Left I&D 01/09/23AR-Follow up Intake Note: Nichol is a 27 year old female who presets today for a post op appointment s/p left I&D 01/09/23 AR. Cast removed in office. Allergies No Known Allergies Allergy (Verified 02/21/23 12:41) HPI PO-Left I&D 01/09/23AR-Follow up HPI Details 27-year-old male who presents in the office today for a wound check; 6 weeks status post left small finger extensor digitorum quinti tendon repair and repair of abductor digital minimi tendon with ulnar nerve block, which was performed on 01/09/[address] Mathews. [facility] Medical History delivery delivered Hernia Anemia Surgical History History of hemorrhoidectomy (2015) History of ventral hernia repair (2017) History of umbilical hernia repair (11/17/13) History of delivery (02/2013) Hx of appendectomy Family History Father No problems noted. Mother No problems noted. 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 No surrounding erythema or drainage. No signs of infection. Lacking about 4cm from making a closed fist with the ring and little fingers. NVI. Assessment & Plan Assessment & Plan (1) Extensor tendon laceration of finger with open wound: Code(s): S56.429A - Laceration of extensor muscle, fascia and tendon of unspecified finger at forearm level, initial encounter; S61.209A - Unspecified open wound of unspecified finger without damage to nail, initial encounter Qualifiers: Encounter type: subsequent encounter Qualified Code(s): S56.429D - Laceration of extensor muscle, fascia and tendon of unspecified finger at forearm level, subsequent encounter; S61.209D - Unspecified open wound of unspecified finger without damage to nail, subsequent encounter Plan Mr. Cecilio Harry is a 27-year-old male who presents in the office today for a wound check; 6 weeks status post left small finger extensor digitorum quinti tendon repair and repair of abductor digital minimi tendon with ulnar nerve block, which was performed on 01/09/[address] Mathews. Cast was removed while in the office today. X-rays of the left hand revealed no abnormalities. The patient will be referred to occupational therapy to work on ROM in the left hand. Follow up will be in 4 weeks for a ROM check, or sooner if needed. Orders: Orders OT Evaluation and Treatment Today S56.429A - Laceration of extensor muscle, fascia and tendon of unspecified finger at forearm level, initial encounter, S61.209A - Unspecified open wound of unspecified finger without damage to nail, initial encounter Patient Instructions: Scribed for Zenaida Perkins PA-C by Karla Jeff infertility medical assistant, on 02/18/2023 at 12:28 pm, EST. Coding Level of Care Code Global (30207) Diagnoses Extensor tendon laceration of finger with open wound, subsequent encounter S56.429D; S61.209D Encounter type: subsequent encounter
== END 2023-02-21 12:50 | disposition home or self-care (01) ==
PROVIDERS: PCP Internal Medicine; Visit Provider Physician Assistant
DX: S56.429D Laceration of extensor muscle, fascia and tendon of unspecified finger at forearm level, subsequent encounter (principal); S61.209D Unspecified open wound of unspecified finger without damage to nail, subsequent encounter
CPT/HCPCS: 99024

== ENCOUNTER → 2023-02-21 12:23 | Outpatient (BNVA) | payer MEDICAID, SELFPAY | PROVIDERS: PCP Internal Medicine; Visit Provider Physician Assistant ==

== ENCOUNTER 2023-05-08 13:20 | Outpatient (REF) | payer MEDICAID, SELFPAY ==
[2023-05-09 15:17] LABS: BV Int Neg Control Negative (Negative); BV Int Pos Control Positive (Positive)
== END 2023-05-08 13:21 | disposition home or self-care (01) ==
LOC: HO.HHCLNP 13:20
PROVIDERS: Visit Provider Advanced Practice Midwife
DX: R10.2 Pelvic and perineal pain (principal); R35.0 Frequency of micturition
CPT/HCPCS: 87086; 87480; 87510; 87660

== ENCOUNTER 2023-06-10 14:22 | Outpatient (AMB) | payer MEDICAID, SELFPAY ==
[2023-06-10 14:23] VITALS: BP 121/69; PULSE 59; BMI 25.0
--- NOTE | 2023-06-10 14:23 | A.OFFVIS_ITS ---
Intake Vital Signs 3 06/10/23 14:23 Height 5 ft Weight 128 lb 4 oz BMI 25.0 BP 121/69 Blood Pressure Location Lt brachial Position Sitting Pulse 59 Pulse Source Pulse Oximeter Intake Visit Reasons: Incisional hernia Intake Note: Pt presents to the office today for incisional hernia. Pt states she will get really bad pain everyday and she states that it will pop out and she will have to pop it back in and then it will start to feel better. She states usually after she pushes the hernia back into place she is able to have a bowel movement. Allergies No Known Allergies Allergy (Verified 06/10/23 14:25) Medication List - Last Reconciled 06/10/23 by Ranjith Celestin MD cyclobenzaprine 10 mg PO TID PRN hydroxyzine HCl mg PO ibuprofen 600 mg PO Q6H PRN HPI HPI Comments 2 History of Present Illness0 Details 27-year-old female patient returning with complaints of abdominal pain in the mid abdomen above her umbilicus. She previously underwent repair of a umbilical and ventral her[place] [facility] but subsequently developed a painful lump which has gradually increased in size. She is now reporting increased pain and difficulty passing her bowels. She occasionally needs to push on her abdomen to reduce the hernia to allow a bowel movement. Denies nausea, vomiting, fever or chills. [facility] Medical History delivery delivered Hernia Anemia Surgical History History of hemorrhoidectomy (2015) History of ventral hernia repair (2017) History of umbilical hernia repair (11/17/13) History of delivery (02/2013) Hx of appendectomy Family History Father No problems noted. Mother No problems noted. 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 Review of Systems Const All systems reviewed & are unremarkable except as noted in HPI and below Physical Exam Vital Signs: Last Vital Signs Pulse 59 06/10/23 14:23 BP 121/69 06/10/23 14:23 BMI result Body Mass Index 25.0 Const General: cooperative and no acute distress Nutritional Appearance: well nourished Orientation/consciousness: patient oriented x3 Limitations: no limitations HEENT Head: Yes normocephalic and Yes atraumatic Ears: hearing grossly normal bilaterally Resp Effort & Inspection: normal respiratory effort, no audible wheezes, no cough and no respiratory distress Cardio Jugular venous distension: no JVD GI Other: Ventral hernia noted a just above the umbilicus which increases in size with Valsalva maneuvers but reduces easily with light pressure. The hernia measures approximately 1 cm in diameter but is tender to palpation. Inspection: Yes normal to inspection Palpation (GI): Soft to palpation, Tenderness to palpation present (GI) ( Above the umbilicus) and Hernia present ( ventral hernia located approximately 5 cm above the umbilicus.) Abdomen image: 2 1. 1 cm reducible ventral hernia. Previous incision in the umbilicus noted Skin Other: Warm, dry, no rash Neuro General: patient oriented x3 Extrem General: Yes normal to inspection and Yes no clubbing, cyanosis or edema Assessment & Plan Assessment & Plan (1) Ventral hernia: Code(s): K43.9 - Ventral hernia without obstruction or gangrene Qualifiers: Obstruction and gangrene presence: without obstruction or gangrene Qualified Code(s): K43.9 - Ventral hernia without obstruction or gangrene Plan 27-year-old female patient presenting with a symptomatic, reducible ventral hernia measuring 1 cm in diameter. I reviewed the procedure, risks, and alternatives and she consents to repair of this ventral hernia with mesh. This will be scheduled as a short-stay surgery at her earliest convenience. Coding Level of Care Code Est Pt Level 4 (91905) Diagnoses Ventral hernia without obstruction or gangrene K43.9 Obstruction and gangrene presence: without obstruction or gangrene
== END 2023-06-10 14:47 | disposition home or self-care (01) ==
PROVIDERS: PCP Internal Medicine; Referring Provider Internal Medicine; Visit Provider Surgery
DX: K43.9 Ventral hernia without obstruction or gangrene (principal)
CPT/HCPCS: 99214

== ENCOUNTER → 2023-06-10 14:22 | Outpatient (BNVA) | payer MEDICAID, SELFPAY | PROVIDERS: PCP Internal Medicine; Referring Provider Internal Medicine; Visit Provider Surgery | DX: K43.9 Ventral hernia without obstruction or gangrene (principal) | CPT/HCPCS: 99212 ==

== ENCOUNTER 2023-06-25 05:54 | Day surgery (SDC) | payer MEDICAID, SELFPAY ==
[2023-06-23 08:18] VITALS: BMI 25.0
--- NOTE | 2023-06-23 11:55 | HO.ANESPROP2 ---
Documented by User: Pham Suarez NP 06/23/23 11:56 HPI - Anesthesia Eval Consult details Narrative: 27yo F for Hernia Ventral Reducible with mesh s/p finger repair 12/2022 with GA-LMA 4 PMFSH Active Problems Active Problems: All Active Problems (Updated 06/10/23 @ 14:41 by Ranjith Celestin MD) Extensor tendon laceration of finger with open wound (Acute) Ventral hernia (Acute) COVID-19 (Acute) Past Medical History Medical History delivery delivered Hernia Anemia Family History Family History Father No problems noted. Mother No problems noted. Maternal Grandfather Cancer of unknown origin Family history of problems with anesthesia: No Surgical History Surgical History History of hemorrhoidectomy (2015) History of ventral hernia repair (2017) History of umbilical hernia repair (11/17/13) History of delivery (02/2013) Hx of appendectomy History of Problems with Anesthesia: No Social History Social History Alcohol intake: never Patient Tobacco Use Status: Never used Tobacco Second Hand Smoke Exposure: No Use of substances other than those prescribed or required for medical reasons: No Are you DNR?: No Advance Directives: No Advance Directives Information Provided: Yes Advance Directives on File: No Current occupational status: unemployed 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 Meds Allergies Allergy/AdvReac Type Severity Reaction Status Date / Time No Known Allergies Allergy Verified 06/10/23 14:25 Home Medications Medication Instructions Recorded Confirmed Last Taken Type hydroxyzine HCl 10 mg tablet 10 mg PO DAILY 01/03/23 06/25/23 Unknown History Exam Height,Weight and Vital Signs: Height 5 ft Weight 58.06 kg Assessment and Plan Assessment Anesthesia Assessment: Chart Reviewed Final Anesthetic Review Family History of Problems with Anesthesia: No History of Problems with Anesthesia: No Documented by User: Alexandra Singleton MD 06/25/23 07:24 PMFSH Past Medical History Medical History delivery delivered Hernia Anemia Family History Family History Father No problems noted. Mother No problems noted. Maternal Grandfather Cancer of unknown origin Surgical History Surgical History History of hemorrhoidectomy (2015) History of ventral hernia repair (2017) History of umbilical hernia repair (11/17/13) History of delivery (02/2013) Hx of appendectomy Social History Social History Alcohol intake: never Patient Tobacco Use Status: Never used Tobacco Second Hand Smoke Exposure: No Use of substances other than those prescribed or required for medical reasons: No Are you DNR?: No Advance Directives: No Advance Directives Information Provided: Yes Advance Directives on File: No Current occupational status: unemployed 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 Meds Allergies Allergy/AdvReac Type Severity Reaction Status Date / Time No Known Allergies Allergy Verified 06/10/23 14:25 Home Medications Medication Instructions Recorded Confirmed Last Taken Type hydroxyzine HCl 10 mg tablet 10 mg PO DAILY 01/03/23 06/25/23 Unknown History Exam Airway Mallampati Class: II (braces) TM Dist: >3cm Neck ROM: Full Loose/Missing/Broken Teeth: No Heart: RRR Lungs: CTA Assessment and Plan Assessment Anesthesia Assessment: Anesthesia Plan Discussed Final Anesthetic Review NPO: Yes ASA Class: II Final Preanesthetic Review: Meds/Allgs Chart Reviewed, Consent Obtained/Reviewed and Anes Risks/Benef Reviewed Patient Risk: Low Procedure Risk: Low Anesthetic Plan Anesthetic Plan: GA Disposition: Standard PACU
[2023-06-25 06:34] VITALS: BMI 25.0
[2023-06-25 06:42] VITALS: BP 114/59; PULSE 55; RESP 16; TEMP 36.1; O2SAT 99
[2023-06-25 06:53] LABS: UPreg QC Valid YES; Urine Pregnancy NEGATIVE (NEGATIVE)
[2023-06-25] MEDS: Lactated Ringers 1,000 ML 100 ML IVCONT (07:03)
--- NOTE | 2023-06-25 07:32 | MHC.SHP ---
Pre-Procedural Eval Section A - 24 Hr Update-Section A only Date of Service: 06/25/23 The patient is an INPATIENT: No Changes since office visit: Yes Patient answered all questions; No Cold of Flu in the past 2 weeks, No New Medical Problems and No Changes in Medication The patient has been examined within 24 hours of the surgical procedure. The History & Physical has been completed within 30 days and I have reviewed it.: Yes Section B - Complete if H&P > 30 days Chief Complaint: Ventral hernia without obstruction or gangrene Allergies: Allergies Allergy/AdvReac Type Severity Reaction Status Date / Time No Known Allergies Allergy Verified 06/10/23 14:25 Plan Diagnosis/Plan: Unchanged I have reviewed the history and physical and performed a pertinent physical examination on my patient. No changes have occurred unless specified. Time Spent With Patient Time: Total time managing care of this patient today ____ minutes.
--- NOTE | 2023-06-25 08:30 | W.PM.OPN ---
Operative Note Operative Note Date of Service: 06/25/23 Narrative: Preoperative diagnosis: Recurrent ventral hernia, reducible, 2 cm Postoperative diagnosis: Same Procedure: Repair of recurrent ventral hernia with mesh Surgeon: Ranjith Celestin MD Plane Tableman: Maria L Mendez PA-C, ZENAIDA Calzada Anesthesia: General LMA Indications for procedure: 27-year-old female patient with a prior history of umbilical hernia repair with mesh presenting with a recurrent umbilical/ventral hernia which is been increasing in size and causing increased discomfort. Operative findings: Patient was found to have recurrent hernia below the umbilicus and 1 slightly higher in the upper midline. Altogether the hernia measured approximately 2 cm in diameter Specimen: None Estimated blood loss: Less than 2 mL Complications: None Procedure details: Patient was brought to the OR and placed in a supine position. After administering general anesthesia the patient's abdomen was prepped with ChloraPrep and draped in a sterile fashion. A surgical time-out was called the consent confirmed. Patient received preoperative antibiotics and Venodyne boots were in place. Local anesthesia consisting of 0.5% Sensorcaine was infiltrated in the midline just above the umbilicus. A midline incision was created measuring approximately 10 cm. This carried out through subcutaneous tissue up to the anterior rectus sheath. A hernia was noted approximately 3 cm above the umbilicus radiating from around the previous repair. And intact mesh repair was identified. The umbilicus was then elevated off the fascia and a 2nd hernia noted below the umbilicus. This 1 measured approximately 1 cm in diameter. The 2 openings were freed of the surrounding scar tissue. The preperitoneal space was then created to connect both openings without opening the fascia in between. A 6.4 cm round Ventralex mesh was then obtained. This was placed in the preperitoneal space and secured circumferentially using interrupted 0 Tycron sutures. The mesh covered both openings very well. Fascia was then closed over the mesh using [id number] 0 Tycron sutures. Wounds were then irrigated with saline solution and suctioned dry. The umbilical skin was then reattached to the fascia using a 3-0 Polysorb suture. Subcutaneous tissue and dermis were then reapproximated using interrupted 3-0 Polysorb sutures. Skin was then closed using a running subcuticular 4-0 Polysorb suture. Sterile dressings consisting of Steri-Strips, 4 x 4 gauze and Tegaderm were then applied. The patient tolerated the procedure well. Sponge, instrument, and needle counts reported as correct. The patient was transferred to PACU in stable condition.
[2023-06-25 08:43] VITALS: BP 118/72; PULSE 78; RESP 18; TEMP 36.8; O2SAT 100
[2023-06-25 08:48] VITALS: BP 112/57; PULSE 69; RESP 16; O2SAT 100
[2023-06-25 08:53] VITALS: BP 108/63; PULSE 63; RESP 16; O2SAT 100
[2023-06-25 08:58] VITALS: BP 116/62; PULSE 59; RESP 16; TEMP 36.4; O2SAT 100
[2023-06-25] MEDS: oxyCODONE HCl Immed Release 5 MG TABLET PO (08:59)
[2023-06-25 09:11] VITALS: BP 112/68; PULSE 72; RESP 16; TEMP 36.6; O2SAT 100
--- NOTE | 2023-06-25 11:07 | HO.INF ---
PATIENT RECEIVED OXYCODONE IN PACU. PATIENT REPORTED ITCHINESS TO HEAD, NECK, CHEST AND UPPER EXTREMITIES WHILE IN DC AREA. DR. MI ASSESSED PATIENT IN DC AREA.... NO NEW ORDERS AT THIS TIME. MAINE CONNECTED DR. NY TO ASK IF HE WANTED TO CHANGE THE PRESCRIPTION FOR PATIENT IT IS OXYCODONE. DR. NY IN SURGERY, AWAITING ANSWER. PATIENT STILL IN DC AREA. PATIENT STATES NO ITCHING AT THIS TIME.
--- NOTE | 2023-06-25 11:28 | HO.INF ---
PATIENT STATES SHE WANTS TO GO HOME. SIGNIFICANT OTHER AT SIDE AND WILL BE ABLE TO COME BACK AND GET A PRESCRIPTION FOR PATIENT.
--- NOTE | 2023-06-25 11:39 | HO.INF ---
DR. NY CHANGED THE PRESCRIPTION TO TRAMADOL.
== END 2023-06-25 11:41 | disposition home or self-care (01) ==
PROVIDERS: Nurse Practitioner; PCP Internal Medicine; Visit Provider Surgery
PROC: (CPT 49613; principal; 2023-06-25 07:30)
DX: K43.2 Incisional hernia without obstruction or gangrene (principal); D64.9 Anemia, unspecified; Z79.1 Long term (current) use of non-steroidal anti-inflammatories (NSAID); Z79.899 Other long term (current) drug therapy; Z79.890 Hormone replacement therapy
CPT/HCPCS: 49613; 81025; C1781; J0131; J0665; J0690; J1100; J1885; J2250; J2405; J2704; J3010

== ENCOUNTER → 2023-06-25 05:54 | Outpatient (BNV) | payer MEDICAID, SELFPAY | PROVIDERS: PCP Internal Medicine; Visit Provider Surgery | DX: K43.9 Ventral hernia without obstruction or gangrene (principal) | CPT/HCPCS: 49613 ==

== ENCOUNTER 2023-07-04 09:38 | Outpatient (AMB) | payer MEDICAID, SELFPAY ==
--- NOTE | 2023-07-04 09:40 | A.OFFVIS_ITS ---
Intake Vital Signs 3 07/04/23 09:47 Height 5 ft Weight 127 lb BMI 24.8 BP 128/75 Blood Pressure Location Lt brachial Position Sitting Pulse 69 Intake Visit Reasons: S/p repair Ventral hernia w/ mesh Intake Note: Patient is seen in office for post op assessment post repair of recurrent ventral hernia with mesh. Pt c/o: admits to dizziness, nausea, swelling, constipation, has been sneezing more than usual for the past couple of days and has irritated the area and started to swell up, no longer taking pain meds Op: 06/25/23 Interlocking And Signal Mechanic Required: No Accompanied by: Self / Same As Patient Allergies No Known Allergies Allergy (Verified 06/10/23 14:25) Medication List - Last Reconciled 07/04/23 by Ranjith Celestin MD cyclobenzaprine 10 mg PO TID PRN hydroxyzine HCl 10 mg PO DAILY ibuprofen 600 mg PO Q6H PRN tramadol 25 mg (1/2 x 50 mg) PO Q6H PRN HPI HPI Comments 2 History of Present Illness0 Details Patient returns 1 week for following repair of a recurrent ventral hernia with mesh. She reports having an episode of sneezing several days which cause some swelling on the right side. She is starting to feel improved however after this. She denies nausea or vomiting. [facility] Medical History delivery delivered Hernia Anemia Surgical History History of hemorrhoidectomy (2015) History of ventral hernia repair (2017) History of umbilical hernia repair (11/17/13) History of delivery (02/2013) Hx of appendectomy Family History Father No problems noted. Mother No problems noted. 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 There is slight swelling in the right side but no changes noted with Valsalva maneuvers. Abdomen image: 2 1. Incision upper abdomen. Skin Other: Warm, dry, no rash Neuro General: patient oriented x3 Assessment & Plan Assessment & Plan (1) Ventral hernia: Code(s): K43.9 - Ventral hernia without obstruction or gangrene Qualifiers: Obstruction and gangrene presence: without obstruction or gangrene Qualified Code(s): K43.9 - Ventral hernia without obstruction or gangrene Plan Patient returns 1 week following ventral hernia repair. Her wounds are clean, dry, and intact without redness or discharge. She should continue to avoid lifting greater than 10 lb for the next 4 weeks and should return at that time for follow-up examination. She should call sooner for any new concerns. Coding Level of Care Code Global (31847) Diagnoses Ventral hernia without obstruction or gangrene K43.9 Obstruction and gangrene presence: without obstruction or gangrene
[2023-07-04 09:47] VITALS: BP 128/75; PULSE 69; BMI 24.8
== END 2023-07-04 09:51 | disposition home or self-care (01) ==
PROVIDERS: PCP Internal Medicine; Visit Provider Surgery
DX: K43.9 Ventral hernia without obstruction or gangrene (principal)
CPT/HCPCS: 99212

== ENCOUNTER → 2023-07-04 09:38 | Outpatient (BNVA) | payer MEDICAID, SELFPAY | PROVIDERS: PCP Internal Medicine; Visit Provider Surgery | DX: Z48.815 Encounter for surgical aftercare following surgery on the digestive system (principal) | CPT/HCPCS: 99212 ==

== ENCOUNTER 2023-07-29 08:16 | Emergency (ER) | payer MEDICAID, SELFPAY ==
--- NOTE | ~2023-07-29 | US_ITS ---
EXAMINATION: US PELVIS CLINICAL INFORMATION: Left ovarian/pelvic pain. Evaluate for cyst. LMP reportedly 04/22/2023. COMPARISON: CT abdomen/pelvis from 12/05/2021. TECHNIQUE: Ultrasound of the pelvis is performed using both transabdominal and transvaginal transducers. FINDINGS: The uterus has normal contour and normal myometrial echotexture. No evidence of leiomyoma. The uterus measures approximately 9 x 3.8 x 5.1 cm (cervix to fundus x AP x transverse dimension). The cervix is normal. The echogenic endometrial stripe measures up to 0.4 cm AP. A trace amount of fluid is present within the endometrial cavity. A few submucosal cysts are identified, as may be seen in the setting of adenomyosis. There are dilated parauterine veins within the pelvis. Although this is a nonspecific observation, it can be seen in patients with pelvic congestion syndrome. There are normal-sized follicles within each ovary. The right ovary is 3.5 x 2.2 x 2.6 cm (10.1 mL) and left ovary is 3.5 x 2.4 x 2.2 cm (9.8 mL). No evidence of cystic mass or solid adnexal lesion. Color Doppler images show presence of arterial and venous flow within ovaries. No pelvic free fluid. US/US pelvic complete IMPRESSION: * No evidence of ovarian cyst or torsion. No pelvic free fluid. * There are a few submucosal cysts of the uterus, as may be seen in patients with uterine adenomyosis. * There are dilated parauterine veins within the pelvis.
[2023-07-29 08:19] VITALS: BP 114/68; PULSE 60; RESP 18; TEMP 36.5; O2SAT 99; BMI 25.0
[2023-07-29 08:35] LABS: MANUAL DIFF FLAG NO
[2023-07-29 08:37] LABS: Basophils Percent Auto 0.3 % (0-2); Eosinophils Absolute Auto 0.2 X10*3/uL (0.0-0.4); Eosinophils Percent Auto 2.1 % (0-4); Hematocrit 35.2 % (37.0-47.0); Hemoglobin 11.9 g/dl (12.0-16.0); Imm Gran Abs Auto 0.01 X10*3/uL (0.00-0.03); Imm Gran Pct Auto 0.1 % (0.0-0.4); Lymphocytes Absolute Auto 3.2 X10*3/uL (1.2-4.9); Lymphocytes Percent Auto 44.8 % (20-40); Mean Corpuscular HGB Conc 33.8 g/dl (31.0-35.0); Mean Corpuscular Volume 91.7 fL (80.0-98.0); Mean Platelet Volume 9.9 fL (9.4-12.3); Monocytes Absolute Auto 0.4 X10*3/uL (0.1-1.2); Monocytes Percent Auto 6.1 % (2-11); Neutrophils Absolute Auto 3.3 x10*3/uL (2.0-8.3); Neutrophils Percent Auto 46.6 % (45-73); Platelet Count 233 X10*3/uL (160-400); Red Blood Count 3.84 X10*6/uL (4.20-5.50); Red Cell Distribution Width 11.8 % (11.0-16.0); White Blood Count 7.1 X10*3/uL (4.8-10.8)
[2023-07-29 08:56] LABS: Alanine Aminotransferase 21 U/L (0-31); Alkaline Phosphatase 96 U/L (39-117); Anion Gap 11 (12-20); Aspartate Amino Transferase 18 U/L (5-31); Bilirubin Total 0.4 mg/dL (0.0-1.0); Blood Urea Nitrogen 16 mg/dL (9-16); Carbon Dioxide 25 mmol/L (22-29); Chloride 107 mmol/L (96-108); Creatinine Clr Calc Pharmacy 96.3; Estimated Glomerular Filt Rate > 60; Glucose Random 103 mg/dL (60-115); Lipase 24 U/L (8-78); Potassium 3.8 mmol/L (3.3-5.1); Sodium 139 mmol/L (135-145); Total Protein 6.9 g/dL (6.5-8.0)
[2023-07-29 08:58] LABS: HCG Quantitative < 2 mIU/mL
[2023-07-29 09:01] VITALS: BP 124/58; PULSE 68; RESP 17; TEMP 36.7; O2SAT 96
--- NOTE | 2023-07-29 09:15 | PC.NURSE ---
Pt presents to ED from home, reports LLQ ABD pain X2 weeks, started during the night when she coughed. Pt reports pain is intermittent and worsens with any movement or coughing, 5/10, and sharp. Pt reports she believes she is , LMP Apr 22, 2023. Pt reports she took 3 tests this past week, positive but faded line so she is unsure. Pt is A0. Pt denied any CP, SOB, vomiting, diarrhea, fevers and trouble urinating. Pt denied any vaginal bleeding or foul discharge recently. Pt is alert and oriented, breathing even and unlabored, skin WNL. Pt in no outward distress. ABD soft, non-distended.
[2023-07-29 09:19] LABS: Appearance Urine Clear; Color Urine Yellow; Glucose Urine UA Negative (Negative); Leukocyte Esterase Urine Negative (Negative); Nitrite Urine Negative (Negative); PH 5.5 (5.0-9.0); Specific Gravity - Urine 1.025 (1.005-1.025); Urine Blood Negative (Negative); Urine Ketones Negative (Negative); Urine Protein Negative (Neg-Trace)
[2023-07-29 09:20] LABS: UPreg QC Valid YES; Urine Pregnancy NEGATIVE (NEGATIVE)
[2023-07-29 10:21] VITALS: BP 114/70; PULSE 64; RESP 20; TEMP 36.8; O2SAT 98
--- NOTE | 2023-07-29 11:04 | ED_ITS ---
HPI - Abdominal Pain General Chief Complaint: Abdominal Pain Stated Complaint: +preg test/LLQ pain Time Seen by Provider: 07/29/23 09:00 Source: patient Mode of arrival: ambulatory Limitations: no limitations History of Present Illness HPI narrative: No menses in months, question of positive test at home a few time, pain with coughing in left pelvic area. no discharge no fever MD elicited complaint: abdominal pain Onset (ago): week(s) Quality: cramping Related Data Home Medications ?Medication ?Instructions ?Recorded ?Confirmed hydroxyzine HCl 10 mg tablet 10 mg PO DAILY 01/03/23 07/04/23 Previous Rx's ?Medication ?Instructions ?Recorded cyclobenzaprine 10 mg tablet 10 mg PO TID PRN muscle spasm #14 09/10/20 tabs ibuprofen 600 mg tablet 600 mg PO Q6H PRN pain #30 tabs 09/10/20 tramadol 50 mg tablet 25 mg (1/2 x 50 mg) PO Q6H PRN 07/01/23 pain (scale score 7-10) #7 tabs naproxen 500 mg tablet (Naprosyn) 500 mg PO BID #20 tabs 07/29/23 Allergies Allergy/AdvReac Type Severity Reaction Status Date / Time No Known Allergies Allergy Verified 07/29/23 08:22 Review of Systems Review of Systems Yes all other systems are reviewed and are negative Denies Sensory deficit (Neuro) PMFSH Past Medical History Medical History delivery delivered Hernia Anemia Surgical History History of hemorrhoidectomy (2015) History of ventral hernia repair (2017) History of umbilical hernia repair (11/17/13) History of delivery (02/2013) Hx of appendectomy Family History Family History Father No problems noted. Mother No problems noted. 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 Physical Exam ED Vital Signs: Vital Signs - 24 hr 07/29/23 08:19 07/29/23 09:01 07/29/23 10:21 Temperature 97.7 F 98.1 F 98.2 F Pulse Rate 60 68 64 Respiratory Rate 18 17 20 Blood Pressure 114/68 124/58 L 114/70 Pulse Oximetry 99 96 98 Oxygen Delivery Method Room Air Room Air Room Air BMI result Body Mass Index 25.0 Const General: healthy appearing Nutritional Appearance: average body habitus Orientation/consciousness: oriented to person and patient oriented x3 Limitations: no limitations HENMT Head: Yes normal to inspection Ears: external ears normal General nose exam: Normal external nose present Mouth: Normal oral and palatal mucosa present and oropharynx normal Throat: Yes posterior oropharynx normal Eyes General: appearance normal, both eyes and all related structures Neck Neck: Yes normal visual inspection Chest Chest palpation & inspection: normal inspection of the chest Resp Auscultation: clear to auscultation bilaterally Cardio Jugular venous distension: no JVD Rate: regular rate Rhythm: regular rhythm Heart sounds: S1 normal heart sound present and S2 normal heart sound present GI Inspection: Yes normal to inspection Palpation (GI): Soft to palpation, nontender and No hepatosplenomegaly present Auscultation: normal bowel sounds General: Yes no CVA tenderness Back/Spine/Pelvis Back: no CVA tenderness Skin General skin exam: no rashes or lesions noted Neuro General: oriented to person and patient oriented x3 Cranial nerves: Yes CN's II-XII intact bilaterally Motor exam (neuro): 5/5 motor strength present throughout Sensory Exam: No Sensory deficit (Neuro) Extrem General: Yes normal to inspection Psych Appearance: grossly normal Course Reevaluation(s) Reevaluation #1: not , US negative for ovarian cyst, will dc on nsaids Time: 11:06 Medical Decision Making Differential Diagnosis Differential Diagnoses: The differential diagnosis associated with the presentation includes (, ectopic , UTI, ovarian cyst) Admission/Observation Consideration of admission/observation: Escalation of care including admission/observation considered (upon arrival patient considered for admission) Lab Data 07/29/23 08:27 07/29/23 08:27 Labs: Lab Results 07/29/23 07/29/23 Range/Units 08:27 09:11 WBC 7.1 (4.8-10.8) X10*3/uL RBC 3.84 L (4.20-5.50) X10*6/uL Hgb 11.9 L (12.0-16.0) g/dl Hct 35.2 L (37.0-47.0) % MCV 91.7 (80.0-98.0) fL MCH 31.0 (27.0-33.0) pg MCHC 33.8 (31.0-35.0) g/dl RDW 11.8 (11.0-16.0) % Plt Count 233 (160-400) X10*3/uL MPV 9.9 (9.4-12.3) fL Immature Gran % (Auto) 0.1 (0.0-0.4) % Neut % (Auto) 46.6 (45-73) % Lymph % (Auto) 44.8 H (20-40) % [place]th % (Auto) 6.1 (2-11) % Eos % (Auto) 2.1 (0-4) % Baso % (Auto) 0.3 (0-2) % Lymph # (Auto) 3.2 (1.2-4.9) X10*3/uL S[place]th # (Auto) 0.4 (0.1-1.2) X10*3/uL Eos # (Auto) 0.2 (0.0-0.4) X10*3/uL Baso # (Auto) 0.0 (0.0-0.2) X10*3/uL Abs Immat Gran (auto) 0.01 (0.00-0.03) X10*3/uL Absolute Neuts (auto) 3.3 (2.0-8.3) x10*3/uL Absolute Nucleated RBC 0.000 (0.0-0.012) X10*3/uL Nucleated RBC % (auto) 0.0 (0.0-0.2) /100WBC Sodium 139 (135-145) mmol/L Potassium 3.8 (3.3-5.1) mmol/L Chloride 107 (96-108) mmol/L Carbon Dioxide 25 (22-29) mmol/L Anion Gap 11 L (12-20) BUN 16 (9-16) mg/dL Creatinine 0.70 (0.5-1.4) mg/dL Estim Creat Clear Calc 96.3 Estimated GFR > 60 Random Glucose 103 (60-115) mg/dL Calcium 9.0 D (8.4-10.2) mg/dL Total Bilirubin 0.4 (0.0-1.0) mg/dL AST 18 (5-31) U/L ALT 21 (0-31) U/L Alkaline Phosphatase 96 (39-117) U/L Total Protein 6.9 (6.5-8.0) g/dL Albumin 4.0 (3.5-5.0) g/dL Lipase 24 (8-78) U/L Beta HCG, Quant < 2 mIU/mL Urine Color Yellow Urine Appearance Clear Urine pH 5.5 (5.0-9.0) Ur Specific [place] 1.025 (1.005-1.025) Urine Protein Negative (Neg-Trace) mg/dL Urine Glucose (UA) Negative (Negative) mg/dL Urine Ketones Negative (Negative) mg/dL Urine Blood Negative (Negative) Urine Nitrite Negative (Negative) Ur Leukocyte Esterase Negative (Negative) Urine Test NEGATIVE (NEGATIVE) Independent Interpretation I performed an independent interpretation of an: Ultrasound (follicles) Radiology Impression Discussion of test interpretation with radiology: I have reviewed the radiologist's reading. (I agree) Prescription Management I considered prescription management with: Antibiotic (no evidence of bacterial infection) Discharge Plan Discharge Clinical Impression: Pelvic pain Patient Disposition: Home, Self-Care Instructions: Pelvic Pain (ED) Prescriptions: New naproxen [Naprosyn] 500 mg tablet 500 mg PO BID Qty: 20 0RF No Action tramadol 50 mg tablet 25 mg PO Q6H PRN (Reason: pain (scale score 7-10)) Qty: 7 0RF cyclobenzaprine 10 mg tablet 10 mg PO TID PRN (Reason: muscle spasm) Qty: 14 0RF ibuprofen 600 mg tablet 600 mg PO Q6H PRN (Reason: pain) Qty: 30 0RF hydroxyzine HCl 10 mg tablet 10 mg PO DAILY Referrals: Darnell Angela MD [Physician] - 1 week Print Language: Telugu
[2023-07-29 11:22] VITALS: BP 100/58; PULSE 68; RESP 16; TEMP 36.7; O2SAT 98
== END 2023-07-29 11:23 | disposition home or self-care (01) ==
PROVIDERS: Emergency Provider Emergency Medicine; PCP Internal Medicine
DX: R10.2 Pelvic and perineal pain (principal); N91.2 Amenorrhea, unspecified; Z79.899 Other long term (current) drug therapy
CPT/HCPCS: 36415; 76856; 80053; 81003; 81025; 83690; 84702; 85025; 99284

== ENCOUNTER 2023-08-15 10:13 | Outpatient (AMB) | payer MEDICAID, SELFPAY ==
--- NOTE | 2023-08-15 10:19 | A.OFFVIS_ITS ---
Vital Signs 3 08/15/23 10:26 Height 5 ft Weight 129 lb 8 oz BMI 25.3 BP 121/66 Blood Pressure Location Lt brachial Position Sitting Pulse 63 Intake Visit Reasons: 6wk S/p repair Ventral hernia w/ mesh Intake Note: Patient is seen in office fr 6 wks follow up visit, post ventral hernia repair. Pt c/o: continued sharp pain specially after prolonged standing, dizziness, swollen Audio Specialist Required: No Accompanied by: Other Relationship Allergies No Known Allergies Allergy (Verified 08/15/23 10:26) HPI Comments Details: 27-year-old female patient proximally 1.5 months following repair of ventral hernia with mesh. She notes some swelling in the right side which seems to increase during the day. She has some discomfort associated with this as well. She is concerned about a recurrent hernia. She denies any other abdominal symptoms. [facility] Medical History delivery delivered Hernia Anemia Surgical History History of hemorrhoidectomy (2015) History of ventral hernia repair (2017) History of umbilical hernia repair (11/17/13) History of delivery (02/2013) Hx of appendectomy Family History Father No problems noted. Mother No problems noted. 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 There is slight swelling in the right side but no changes noted with Valsalva maneuvers. Midline healing ridge is palpable and does not change with Valsalva maneuvers. No definite evidence of recurrence. Abdomen image: 2 1. 2. Area of swelling to the right of incision. Skin Other: Warm, dry, no rash Neuro General: patient oriented x3 Extrem General: Yes no clubbing, cyanosis or edema Assessment & Plan Assessment & Plan (1) Ventral hernia: Code(s): K43.9 - Ventral hernia without obstruction or gangrene Category: Medical Qualifiers: Obstruction and gangrene presence: without obstruction or gangrene Q ualified Code(s): K43.9 - Ventral hernia without obstruction or gangrene Plan 27-year-old female patient presenting with complaints of swelling in the right upper quadrant adjacent to the repair. Examination reveals a well-healed incision with some retraction of the incision which may make the swelling in the right abdomen more pronounced. No changes are noted with Valsalva maneuvers to indicate a recurrent hernia. Because of the persistent pain in this location however I recommended a CT abdomen to evaluate for possible recurrent hernia. She expressed understanding and agrees with the plan. I will notify her of the results of the CT once available. Orders: Orders 2 CT abdomen wo IV con Today K43.9 - Ventral hernia without obstruction or gangrene Coding Level of Care Code Global (04026) Diagnoses Ventral hernia without obstruction or gangrene K43.9 Obstruction and gangrene presence: without obstruction or gangrene
[2023-08-15 10:26] VITALS: BP 121/66; PULSE 63; BMI 25.3
== END 2023-08-15 10:40 | disposition home or self-care (01) ==
PROVIDERS: PCP Internal Medicine; Visit Provider Surgery
DX: K43.9 Ventral hernia without obstruction or gangrene (principal)
CPT/HCPCS: 99213

== ENCOUNTER → 2023-08-15 10:13 | Outpatient (BNVA) | payer MEDICAID, SELFPAY | PROVIDERS: PCP Internal Medicine; Visit Provider Surgery | DX: Z48.815 Encounter for surgical aftercare following surgery on the digestive system (principal); Z87.19 Personal history of other diseases of the digestive system | CPT/HCPCS: 99212 ==

== ENCOUNTER 2023-08-22 11:04 | Outpatient (REF) | payer MEDICAID, SELFPAY ==
[2023-08-22 14:12] LABS: HCG Quantitative < 2 mIU/mL; TSH reflex Free T4 0.72 uIU/mL (0.32-4.0)
[2023-08-23 09:04] LABS: Follicle Stimulating Hormone 3.2 mIU/mL; Prolactin 4.6 ng/mL
[2023-08-23 15:53] LABS: C. trachomatis RNA TMA NOT DETECTED (NOT DETECTED); N. gonorrhoeae RNA TMA NOT DETECTED (NOT DETECTED)
== END 2023-08-22 11:05 | disposition home or self-care (01) ==
LOC: HO.HHCL 11:04
PROVIDERS: Visit Provider Internal Medicine
DX: N91.2 Amenorrhea, unspecified (principal)
CPT/HCPCS: 36415; 81513; 83001; 83002; 84146; 84443; 84702; 87491; 87591

== ENCOUNTER 2024-05-25 08:05 | Emergency (ER) | payer MEDICAID, SELFPAY ==
--- NOTE | ~2024-05-25 | XR_ITS ---
EXAMINATION: XR CHEST CLINICAL INFORMATION: cough COMPARISON: March 11, 2023. TECHNIQUE: Frontal view of the chest was obtained. FINDINGS: No consolidation pleural effusion or pneumothorax. No hyperinflation. Cardiomediastinal silhouette is normal. Osseous structures are intact. 3 mm bony island right humeral head.. XR/XR chest 1V IMPRESSION: No acute airspace disease. Electronically signed by: Andrei Vargas MD 05/25/2024 08:52 AM EST
[2024-05-25 08:08] VITALS: BP 123/76; PULSE 107; RESP 18; TEMP 37.4; O2SAT 96; BMI 27.3
[2024-05-25 08:29] LABS: UPreg QC Valid YES; Urine Pregnancy NEGATIVE (NEGATIVE)
[2024-05-25 09:09] LABS: Influenza A PCR POSITIVE (Negative); Influenza B PCR NEGATIVE (Negative); Resp Syncy Virus RNA Qual PCR NEGATIVE (Negative); SARS COV2 PCR INHOUSE NEGATIVE (Negative)
--- NOTE | 2024-05-25 11:04 | ED_ITS ---
HPI - General Adult General Chief complaint: Upper Respiratory Symptoms Stated complaint: Fever, body aches Time Seen by Provider: 05/25/24 11:04 Source: patient Mode of arrival: ambulatory Limitations: no limitations History of Present Illness ED Provider: Molly Ham PA-C HPI narrative: Patient is a 28 year old assigned female at with no reported medical history presenting to the emergency department today with fever, body aches, and nasal congestion. Patient states that over the last day she has had fever, body aches, and nasal congestion. Patient denies any dizziness, lightheadedness, abdominal pain, nausea, vomiting, chills, blurry vision, double vision, loss of vision, chest pain, difficulty breathing, shortness of breath, back pain, night sweats, pain with urination, increased urinary frequency, increased urinary urgency, blood in her urine or stool, syncope or a near syncopal episode, recent trauma or falls, bowel incontinence, bladder incontinence, or any other complaints at this time. Onset (ago): day(s) (1) Related Data Home Medications ?Medication ?Instructions ?Recorded ?Confirmed hydroxyzine HCl 10 mg tablet 10 mg PO DAILY 01/03/23 07/04/23 Previous Rx's ?Medication ?Instructions ?Recorded cyclobenzaprine 10 mg tablet 10 mg PO TID PRN muscle spasm #14 09/10/20 tabs ibuprofen 600 mg tablet 600 mg PO Q6H PRN pain #30 tabs 09/10/20 naproxen 500 mg tablet (Naprosyn) 500 mg PO BID #20 tabs 07/29/23 Allergies Allergy/AdvReac Type Severity Reaction Status Date / Time No Known Allergies Allergy Verified 05/25/24 08:11 Review of Systems Constitutional: Constitutional: Reports no additional constitutional complaints, Reports body ache(s), Denies chills, Reports fever(s) and Denies night sweats Eyes: Eyes: Reports no additional eye complaints, Denies blurry vision, Denies change in vision, Denies diplopia, Denies eye discharge, Denies loss of vision and Denies eye pain ENT: Denies dizziness and Reports nasal congestion Cardiovascular: Cardiovascular: Reports no additional cardiovascular complaints, Denies chest pain, Denies lightheadedness, Denies Loss of Consciousness and Denies dyspnea Respiratory: Respiratory: Reports no additional respiratory complaints and Denies dyspnea Gastrointestinal: Gastrointestinal: Reports no additional gastrointestinal complaints, Denies abdominal pain, Denies melena, Denies hematochezia, Denies change in bowel habits and Denies change in stool character Genitourinary: Genitourinary: Denies hematuria, Denies urinary frequency, Denies dysuria, Denies urinary incontinence, Denies urinary hesitancy and Denies urinary urgency Musculoskeletal: Musculoskeletal: Reports no additional musculoskeletal complaints, Denies numbness and Denies tingling Neurologic: Denies dizziness, Denies loss of vision, Denies numbness and Denies tingling Psychiatric: Psychiatric: Reports no additional psychiatric complaints Endocrine: Endocrine: Reports no additional endocrine complaints Hematologic/Lymphatic: Hematologic/Lymphatic: Reports no additional hematologic/lymphatic complaints Allergic/Immunologic: Allergic/Immunologic: Reports no additional aller gic/immunologic complaints PMFSH Past Medical History Attestation statement: The following information was validated with the patient. Source: old records reviewed and nursing notes reviewed Medical History delivery delivered Hernia Anemia Surgical History History of hemorrhoidectomy (2015) History of ventral hernia repair (2017) History of umbilical hernia repair (11/17/13) History of delivery (02/2013) Hx of appendectomy Family History Family History Father No problems noted. Mother No problems noted. 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 Physical Exam ED Vital Signs: Vital Signs - 24 hr 05/25/24 08:08 05/25/24 12:28 Temperature 99.3 F 99.3 F Pulse Rate 107 H 107 H Respiratory Rate 18 18 Blood Pressure 123/76 123/76 Pulse Oximetry 96 96 Oxygen Delivery Method Room Air Room Air BMI result Body Mass Index 27.3 Const General: cooperative, no acute distress, alert and awake Nutritional Appearance: well nourished Orientation/consciousness: patient oriented x3 Limitations: no limitations HENMT Head: Yes normal to inspection and Yes atraumatic Ears: hearing grossly normal bilaterally and external ears normal General nose exam: Normal external nose present, no nasal discharge noted and no epistaxis Face and sinus: Yes normal facial exam, No abrasion and No laceration Mouth: Normal oral and palatal mucosa present, no drooling and no muffled voice Eyes General: appearance normal, both eyes and all related structures Periorbital: periorbital findings normal Eyelids: Yes eyelids normal Conjunctivae: conjunctivae normal Pupils: Equal, round and reactive pupils present EOM: EOMs intact bilaterally Neck Neck: Yes normal visual inspection, Yes full ROM and Yes no lymphadenopathy Chest Chest palpation & inspection: normal inspection of the chest Resp Effort & Inspection: normal respiratory effort and able to speak in complete sentences GI Inspection: Yes normal to inspection Neuro General: patient oriented x3 and moves all extremities Cranial nerves: Yes Equal, round and reactive pupils present Cognition (Neuro): normal cognition Extrem General: Yes normal to inspection, Yes full ROM and Yes capillary refill normal Psych Appearance: grossly normal Mental Status: mental status grossly normal Affect: normal affect Attitude: cooperative Thought process: Normal thought process present Thought content: Normal thought content present Insight: Good insight present (Psych) Medications Administered Discontinued Medications Generic Name Dose Route Start Last Admin Trade Name Freq PRN Reason Stop Dose Admin Acetaminophen 975 mg 05/25/24 11:12 05/25/24 12:22 Acetaminophen 325 Mg Tablet PO 05/25/24 11:13 975 mg ONCE ONE Administration Ibuprofen 400 mg 05/25/24 11:12 05/25/24 12:22 Ibuprofen 400 Mg Tablet PO 05/25/24 11:13 400 mg ONCE ONE Administration Medical Decision Making Medical Decision Making [facility] Narrative: Patient is a 28 year old assigned female at with no reported medical history presenting to the emergency department today with fever, body aches, and nasal congestion. Patient's physical exam was unremarkable. Patient's influenza test was positive. Patient's chest x-ray showed no acute process. I explained my physical exam findings as well as all test results to the patient. I answered all questions asked by the patient. I stressed the importance of the patient taking her medication as directed (either prescribed or as the over the counter packaging recommends). I stressed the importance of the patient following up with her primary care provider. I stressed the importance of the patient returning to the emergency department immediately if her symptoms were to worsen or if she were to develop any dizziness, shortness of breath, difficulty breathing, chest pain, blurry vision, loss of vision, nausea, vomiting, abdominal pain, fever, chills, back pain, or any other complaints. Patient verbalized agreement and understanding with this treatment plan and discharge. Differential Diagnosis Differential Diagnoses: The differential diagnosis associated with the presentation includes Influenza COVID-19 RSV Viral illness Admission/Observation Consideration of admission/observation: Escalation of care including admission/observation considered Patient would have been admitted to the hospital had her work up had any findin gs where hospital admission was appropriate and her clinical presentation warranted hospital admission. Lab Data [facility] Lab Attestation statement: I reviewed the patient's lab results. My interpretation of these results are in the [facility] Rationale portion of this note. Labs: Lab Results 05/25/24 Range/Units 08:18 Urine Test NEGATIVE (NEGATIVE) Influenza Type A (PCR) POSITIVE A (Negative) Influenza Type B (PCR) NEGATIVE (Negative) RSV RNA Qual (PCR) NEGATIVE (Negative) SARS-CoV-2 RNA (RT-PCR) NEGATIVE (Negative) Independent Interpretation I performed an independent interpretation of an: Plain X-Ray Interpretation: My interpretation is in agreement with the radiologist's impression of this imaging study. EXAMINATION: XR CHEST CLINICAL INFORMATION: cough COMPARISON: March 11, 2023. TECHNIQUE: Frontal view of the chest was obtained. FINDINGS: No consolidation pleural effusion or pneumothorax. No hyperinflation. Cardiomediastinal silhouette is normal. Osseous structures are intact. 3 mm bony island right humeral head.. XR/XR chest 1V IMPRESSION: No acute airspace disease. Electronically signed by: Andrei Vargas MD 05/25/2024 08:52 AM EST Dictated By: Andrei Vann MD Signed By: Electronically signed by Andrei Monique MD 05/25/24 0860 Radiology Impression Discussion of test interpretation with radiology: I have reviewed the rad iologist's reading. Discharge Plan Discharge Clinical Impression: Influenza Patient Disposition: Home, Self-Care Instructions: Influenza (DC) Additional Instructions: Follow up with your primary care provider. Return to the emergency department immediately if your symptoms worsen or if you develop any dizziness, shortness of breath, difficulty breathing, chest pain, blurry vision, loss of vision, nausea, vomiting, abdominal pain, fever, chills, back pain, or any other complaints. Prescriptions: No Action cyclobenzaprine 10 mg tablet 10 mg PO TID PRN (Reason: muscle spasm) Qty: 14 0RF ibuprofen 600 mg tablet 600 mg PO Q6H PRN (Reason: pain) Qty: 30 0RF naproxen [Naprosyn] 500 mg tablet 500 mg PO BID Qty: 20 0RF hydroxyzine HCl 10 mg tablet 10 mg PO DAILY Referrals: Janki George MD [Primary Care Provider] - Interventions: ED Discharge Assessment Last Done: 05/25/24 12:28 Discharge Date/Time: 05/25/24 12:29 Print Language: German
--- OUTSIDE RECORDS SUMMARY | 2024-05-25 11:21 | XMS_ITS | Encounter Summary ---
Author Organization [employer] Address [address] [place] [address] Care Team Providers Care Winder Tender Name Role Phone Janki George MD Primary Care Provider + Reason for Visit * Reason Onset Date Comments Nurse Triage 05/06/2023 Encounter Details Date Type Department Care Team ([facility] st Contact Info) Description 05/06/2023 Telephone [facility] [address], [place] [phone] Janki George MD [address] [place], [place] [phone] Nurse Triage Social History Tobacco Use Types Packs/Day Years Used Date Smoking Tobacco: Never Passive Smoke Exposure: Never Smokeless Tobacco: Never Alcohol Use Standard Drinks/Week Comments Never 0 (1 standard drink = 0.6 oz pur e alcohol) Depression Answer Date Recorded Patient Health Questionnaire-9 Score 8 10/27/2023 Patient Health Questionnaire-9 Score 8 10/27/2023 Last PHQ-9: Questionnaire Data Not on file 0 10/27/2023 Housing Stability Answer Date Recorded What is your housing situation today? I have nate anderson 08/15/[address] you li ve. Do you have problems with any of the following? None of the above 08/15/2023 Food Insecurity Answer Date Recorded Within the past 12 months, y ou worried that your food would run out before you got money to buy more: Never True 08/15/2023 Within the past 12 months,th e food you bought just didn't last and you didn't have enough money to get more: Never True Transportation Answer Date Recorded In the past 12 months, has l ack of transportation kept you from medical appts, meetings, work or from getting things needed for daily living? No 08/15/2023 Utilities Answer Date Recorded In the past 12 months, has t he electric, gas, oil or water company threatened to shut off services in your home? No 08/15/2023 Depression Answer Date Recorded Patient Health Questionnaire-2 Score 1 10/27/2023 Comments Unknown Sex and Gender Information Value Date Recorded Sex Assigned at Female 02/18/2022 10:21 AM EDT Legal Sex Female 10:21 AM EDT Gender Identity Female 02/18/2022 10:21 AM EDT Sexual Orientation Straight 02/18/2022 10 :21 AM EDT documented as of this encounter Miscellaneous Notes * Telephone Encounter - Bhargavi Lora RN - 05/06/2023 10:03 AM EST Triage call Pt reports vaginal symptoms for week to 2 weeks. Symptoms are mainly pelvic pain and pain with intercourse. Pt denies vag discharge, itchiness, burning with urination, odor, fever. Pt hashad a UTI a month ago or so and remains on antibiotics. Pt is concerned that the pelvic pain is continuing. Pt did have period week and 1/2 ago no suspected. Apt with [facility] 05/08/23 @ 1000am. Insurance is verified as active prior to booking. Protocol Used: Vaginal Symptoms (Adult) Protocol-Based Disposition: See in Office or Video Visit within 3 Days Positive Triage Question: * Patient wants to be seen * All higher-acuity triage questions were negative Care Advice Discussed: * Reasons To Call Back - You become worse * Telephone Encounter - Quintin Ca - 05/06/2023 9:47 AM EST Symptom: Vaginal Symptoms - Not Bleeding Outcome: Talk to a nurse or provider within 15 minutes Reason: Severe pelvic pain now The caller accepted this outcome Please contact at [phone] Belarusian documented in this encounter Plan of Treatment Not on file documented as of this encounter Visit Diagnoses Not on filedocumented in this encounter Additional Health Concerns Assessment Noted Time PHQ-9 Depression Total Score: 8 02/11/20 23 11:01 AM EDT documented as of this encounter Care Teams Winder Tender Relationship Specialty Start Date End Date Janki George MD [address] [place] [id number] PCP - General Family Medicine 01/30/16 Shy Barrera Field HandRoom Manager 03/20/23 Ed Jarertt Brand DirectorRoom Manager 12/17/23 documented as of this encounter
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
--- OUTSIDE RECORDS SUMMARY | 2024-05-25 11:21 | XMS_ITS | Encounter Summary ---
Author Organization [employer] Address [address] [place] [address] 7t [place] [address] Care Team Providers Care Nurse Receptionist Name Role Phone Janki George MD Primary Care Provider + Reason for Visit * Reason Onset Date Comments Triage 08/22/2022 Encounter Details Date Type Department Care Team ([facility] st Contact Info) Description 08/22/2022 Telephone [facility] [address] [place], [place] [phone] Janki George MD [address] [place], [place] [phone] Triage Social History Tobacco Use Types Packs/Day Years Used Date Smoking Tobacco: Never Smokeless Tobacco: Never Alcohol Use Standard Drinks/Week Comments Never 0 (1 standard drink = 0.6 oz pur e alcohol) Comments Unknown Sex and Gender Information Value Date Recorded Sex Assigned at Female 02/18/2022 10:21 AM EDT Legal Sex Female 10:21 AM EDT Gender Identity Female 02/18/2022 10:21 AM EDT Sexual Orientation Straight 02/18/2022 10 :21 AM EDT COVID-19 Exposure Response Date Recorded In the last 10 days, have yo u been in contact with someone who was confirmed or suspected to have Coronavirus/COVID-19? No / Unsure 08/08/2022 1:03 PM EDT documented as of this encounter Miscellaneous Notes * Telephone Encounter - Bhargavi Lora RN - 08/22/2022 3:44 PM EDT Triage call Pt reports hair loss since February. Pt did have some stress at that time but, things have gotten better and no further stress. Pt reports hair loss is all over. Pt doesn't wear hair in atight, tied back style. No scabs, crusts noted on scalp. Much hair handful found on hair brush and in bathtub drain after showering. Apt with PCP 09/09 @ 300pm. Pt agrees with disposition and home care reviewed. Insurance is verified as active prior to booking. Protocol Used: Hair Loss (Pediatric) Protocol-Based Disposition: See in Office or Video Visit within 2 Weeks Video visit not offered Positive Triage Question: * Widespread hair thinning and cause not known (Exception: normal hair loss in infancy) * All higher-acuity triage questions were negative Care Advice Discussed: * Reassurance and Education - Hair Loss after Stress * Reasons To Call Back - Hair does not grow back by 12 months - You have other questions or concerns * Telephone Encounter - Marisela Randall - 08/22/2022 3:28 PM EDT Symptom: Headache and Hair Loss Outcome: Schedule an urgent appointment (within 4 hours) or talk to a nurse or provider soon Reason: Getting worse The caller accepted this outcome documented in this encounter Plan of Treatment Not on file documented as of this encounter Visit Diagnoses Not on filedocumented in this encounter Additional Health Concerns Assessment Noted Time PHQ-9 Depression Total Score: 8 05/21/19 23 1:03 PM EST documented as of this encounter Care Teams Nurse Receptionist Relationship Specialty Start Date End Date Janki George MD [address] [place] [phone] PCP - General Family Medicine 01/30/16 Shy Barrera News Reel CameramanIn Home Aide 03/20/23 Ed Jarrett Manager TherapyIn Home Aide 12/17/23 documented as of this encounter
--- OUTSIDE RECORDS SUMMARY | 2024-05-25 11:21 | XMS_ITS | Encounter Summary ---
Author Organization [employer] Address [address] [facility] 7t [place] [address] Care Team Providers Care Bioinformatics Associate Name Role Phone Janki George MD Primary Care Provider + Encounter Details Date Type Department Care Team (Late st Contact Info) Description 05/25/2024 Orders Only GENERIC EXTERNAL DATA DEPARTMENT Provider, Generic External Data Social History Tobacco Use Types Packs/Day Years [...] AM EDT documented as of this encounter Plan of Treatment Not on file documented as of this encounter Procedures Procedure Name Priority Date/Time Associated Diagnosis Comments XR CHEST 1 VIEW Routine 05/25/2024 8:42 AM EST SARS COV2/INFLUENZA A/B AND RSV RNA QL NAAT Routine 05/25/2024 8:18 AM EST HCG, QL, URINE Routine 05/25/2024 8:18 AM EST documented in this encounter Results * XR Chest 1 View (05/25/2024 8:42 AM EST) Anatomical Region Laterality Modality Chest Radiographic Justine ging 05/25/2024 8:42 AM EST Narrative 05/25/2024 8:55 AM EST ? [facility] ?[address] ?[place] [address] ?XRay Report ? Signed ? Patient: Nichol Vallecillo ?MR#: ?? [id number] ? : 1995 ?Acct:[id number] ? Age/Sex: 28 / F ?ADM Date: 05/25/24 ? Loc: HO.ED ? Attending Dr: ? Ordering Physician: Generic ED Physician ?? Date of Service: 05/25/24 ?? Procedure(s): XR chest 1V ?? Accession Number(s): [id number] ? cc: Janki George MD; Generic ED [...] DD/ 0842 ? TD/TT: 05/25/24 0848 ? Instrument Mechanic Weapons System: ? Procedure Note Dondantefelishayarelister, Image - 05/25/[address] [address] XRay Report Signed Patient: Nichol Vallecillo MMR#: [id number] : 1995Acct:[id number] Age/Sex: 28 M Date: 05/25/24 Loc: HO.ED Attending Dr: Ordering Physician: Generic ED Physician Date of Service: 05/25/24 Procedure(s): XR chest 1V Accession Number(s): [id number] cc: Janki George MD; Generic ED Physician [...] by Andrei Monique MDin OV> 05/25/2452 DD/ 0842 TD/TT: 05/25/24 0848 Instrument Mechanic Weapons System: [facility] External Provider IMG XR PROCEDURES Edited Result - Final * (ABNORMAL) SARS-CoV-2 RNA, Influenza A/B, and RSV RNA, Ql NAAT (05/25/2024 8:18 AM EST) Influenza A PCR POSITIVE(A) Negative [facility] Influenza B PCR NEGATIVE Negative [facility] Resp Syncy Virus RNA Qual PCR NEGATIVE Negative [facility] SARS COV2 PCR NEGATIVE Negative [facility] Comment:All test results mus t be [...] use by authorized laboratories.Testing performed on the [employer] GeneXpert utilizingreal-time RT-PCR.All SARS CoV2 and positive influenza A/B results arereported to [facility]. 05/25/2024 8:18 AM EST 05/25/2024 8:22 AM EST Generic External Data Provider LAB MICROBIOLOGY - GENERAL ORDERABLES Final Result Performing Organization Address [facility] Co de Phone Number [facility] [address] [place] [phone] * HCG, Qualitative, Urine (05/25/2024 8:18 AM EST) Urine NEGATIVE NEGATIVE [facility] Comment:This test was develo ped to detect early . Falsenegative results may occur after the 5th - 7th week ofpregnancy when using this test method. If clinicallyindicated, consider a serum hCG. 05/25/2024 8:18 AM EST 05/25/2024 8:22 AM EST Generic External Data Provider LAB URINE ORDERAB LES Final Result Performing Organization Address [facility]/State/ZIP Co de Phone Number [facility] [address] [place] [address] [phone] documented in this encounter Visit Diagnoses Not on filedocumented in this encounter Additional Health Concerns Assessment Noted Time PHQ-9 Depression Total Score: 8 10/27/19 24 11:16 AM EDT documented as of this encounter Care Teams Bioinformatics Associate Relationship Specialty Start Date End Date Janki George MD [address] [place] [phone] PCP - General Family Medicine 01/30/16 Shy Barrera Beauty Operator ApprenticeSenior It Auditor 03/20/23 Ed Jarrett Agriscience TeacherSenior It Auditor 12/17/23 documented as of this encounter
--- OUTSIDE RECORDS SUMMARY | 2024-05-25 11:21 | XMS_ITS | Encounter Summary ---
Author Organization [employer] Address [address] [facility] 7t [place] [address] Care Team Providers Care Oiler Bander Name Role Phone Janki George MD Primary Care Provider + Reason for Visit * Reason Onset Date Comments ER Follow-up 01/01/2023 Encounter Details Date Type Department Care Team ([facility] st Contact Info) Description 01/01/2023 Telephone [facility] MEDICINE [address] [place], [place] [phone] Janki George MD [address] [place] [address] ER Follow-up Social History Tobacco Use Types Packs/Day Years [...] Telephone Encounter - Bhargavi Lora RN - 01/01/2023 9:32 AM EDT Triage call Pt reports injury to left hand , little finger, lateral aspect. Pt was seen in [facility] ED 12/31/22 and received 9 stitches. Pt reports much pain and is requesting pain relief. Pt does keep hand above heart level when sitting, using ice and rest. Pt reports putting antibiotic ointment on the stitches. Pt is advised to come to [facility] to be seen by provider. Pt does have a PE visit coming up 01/07/23. Pt agrees with this dispostion and home care advice. Protocol Used: Finger Injury (Adult) Protocol-Based Disposition: See in Office or Video Visit Today Video visit not offered Positive Triage Question: * Patient wants to be seen * All higher-acuity triage questions were negative Care Advice Discussed: * Use a Cold Pack for Pain, Swelling, or Bruising * Keep the Hand Elevated * Rest vs. Movement * Expected Course * Reasons To Call Back - Pain becomes severe - Pain does not improve after 3 days - Pain or swelling lasts more than 2 weeks - You become worse * Telephone Encounter - Cjraulito Roby - 01/01/2023 9:05 AM EDT Patient calling to report ED visit on 11/30/22 at [facility]. Reports to be seen for finger injury , pt cutfinger and received 9 sitches , pt stated they are still in pain. Patient advised will forward to team nurse for follow up. Please contact at [phone] documented in this encounter Plan of Treatment Not on file documented as of this encounter Visit Diagnoses Not on filedocumented in this encounter Additional Health Concerns Assessment Noted Time PHQ-9 Depression Total Score: 8 05/21/19 23 1:03 PM EST documented as of this encounter Care Teams Oiler Bander Relationship Specialty Start Date End Date Janki George MD [address] [place] [phone] PCP - General Family Medicine 01/30/16 Shy Barrera Blade BonerCustomer Insight Analyst 03/20/23 Ed Jarrett Mechanical Development EngineerCustomer Insight Analyst 12/17/23 documented as of this encounter
--- OUTSIDE RECORDS SUMMARY | 2024-05-25 11:21 | XMS_ITS | Encounter Summary ---
Author Organization [employer] Address [address] [facility] 7t [place] [address] Care Team Providers Care Photographer Motion Picture Name Role Phone Janki George MD Primary Care Provider + Reason for Visit * Reason Onset Date Comments Med Refill 04/30/2023 Encounter Details Date Type Department Care Team (Late st Contact Info) Description 04/30/2023 Refill [facility] [address] [place], [place] [phone] Myron Bustos MD [address] [place] [address] Laceration of left hand, foreign body presence unspecified, initial encounter Social History Tobacco Use Types Packs/Day Years Used Date Smoking Tobacco: Never Smokeless Tobacco: Never Alcohol Use Standard Drinks/Week Comments Never 0 (1 standard drink = 0.6 oz pur e alcohol) Depression Answer Date Recorded Patient Health Questionnaire-9 Score 8 02/10/2023 Patient Health Questionnaire-9 Score 8 02/10/2023 Last PHQ-9: Questionnaire Data Not on file 1 Housing Stability Answer Date Recorded What is your housing situation today? I have nate anderson 02/05/[address] you li ve. Do you have problems with any of the following? None of the above 02/05/2023 Food Insecurity Answer Date Recorded Within the past 12 months, y ou worried that your food would run out before you got money to buy more: Never True 02/05/2023 Within the past 12 months,th e food you bought just didn't last and you didn't have enough money to get more: Never True 10/ Transportation Answer Date Recorded In the past 12 months, has l ack of transportation kept you from medical appts, meetings, work or from getting things needed for daily living? No 02/05/2023 Utilities Answer Date Recorded In the past 12 months, has t he electric, gas, oil or water company threatened to shut off services in your home? No 02/05/2023 Depression Answer Date Recorded Patient Health Questionnaire-2 Score 2 02/10/2023 Comments Unknown Sex and Gender Information Value Date Recorded Sex Assigned at Female 02/18/2022 10:21 AM EDT Legal Sex Female 10:21 AM EDT Gender Identity Female 02/18/2022 10:21 AM EDT Sexual Orientation Straight 02/18/2022 10 :21 AM EDT documented as of this encounter Plan of Treatment Not on file documented as of this encounter Visit Diagnoses Diagnosis Laceration of left hand, foreign body presence unspecified, initial encounter documented in this encounter Additional Health Concerns Assessment Noted Time PHQ-9 Depression Total Score: 8 02/11/20 23 11:01 AM EDT documented as of this encounter Care Teams Photographer Motion Picture Relationship Specialty Start Date End Date Janki George MD [address] [place] [phone] PCP - General Family Medicine 01/30/16 Shy Barrera Meat Team LeadBioprocessing Manufacturing Technician 03/20/23 Ed Jarrett Immigration CoordinatorBioprocessing Manufacturing Technician 12/17/23 documented as of this encounter
--- OUTSIDE RECORDS SUMMARY | 2024-05-25 11:21 | XMS_ITS | Clinical Summary ---
Author Organization [address] Address [address] [place] [address] Care Team Providers Care Director Of Global Sales Name Role Phone Janki George Primary Care Provider [phone] Allergies No known active allergies Social History Tobacco Use Types Packs/Day Years Used Date Smoking Tobacco: Never Assessed Comments Unknown Sex and Gender Information Value Date Recorded Sex Assigned at Not on file Legal Sex Female 1:44 PM EDT Gender Identity Not on file Sexual Orientation Not on file Last Filed Vital Signs Vital Sign Reading Time Taken Comments Blood Pressure 120/70 08/06/2020 1:46 PM EDT Pulse 63 08/06/2020 1:46 PM EDT Temperature 36.9 ??C (98.5 ??F) 08/06/2020 1:46 PM ED T Respiratory Rate 18 08/06/2020 1:46 PM EDT Oxygen Saturation 99% 08/06/2020 1:46 PM EDT Inhaled Oxygen Concentration - - Weight - - Height - - Body Mass Index - - Plan of Treatment Health Maintenance Due Date Last Done Comments HIV screening 08/26/2008 Hepatitis C screening 08/26/2013 Tetanus adult (Td q 10,TDAP once) 2015 Cervical cancer screening 08/26/2016 Influenza vaccine 11/20/2023 Covid-19 vaccine series (2023- season) 2023 RSV Discussion (1 - 1-dose 7 5+ series) 08/26/2070 Meningococcal Vaccine Aged Out No mehnaz socorro eligible based on patient's age to complete this topic Pneumococcal Vaccine Aged Out No long er eligible based on patient's age to complete this topic Insurance [id number] MEDICAID [id number] MEDICAID MOTOR VEHICLE GENERIC [id number] MEDICAID MOTOR VEHICLE GENERIC Care Teams Director Of Global Sales Relationship Specialty Start Date End Date Janki George [address] [place], [place] [phone] PCP - General 08/06/20
--- OUTSIDE RECORDS SUMMARY | 2024-05-25 11:21 | XMS_ITS | Encounter Summary ---
Author Organization [employer] Address [address] [facility] 7t [place] [address] Care Team Providers Care Pricer Bagger Name Role Phone Janki George MD Primary Care Provider + Reason for Visit * Reason Onset Date Comments Med Refill 12/11/2023 Encounter Details Date Type Department Care Team ([facility] st Contact Info) Description 12/11/2023 Refill [facility] [address] [place], [place] [phone] Bean Cagle FNP Social History Tobacco Use Types Packs/Day Years [...] documented as of this encounter Care Teams Pricer Bagger Relationship Specialty Start Date End Date Janki George MD [address] [place] [phone] PCP - General Family Medicine 01/30/16 Shy Barrera Auto Body StraightenerSafety And Health Consultant 03/20/23 Ed Jarrett Mason HelperSafety And Health Consultant 12/17/23 documented as of this encounter
--- OUTSIDE RECORDS SUMMARY | 2024-05-25 11:21 | XMS_ITS | Encounter Summary ---
Author Organization [employer] Address [address] [place] [address] 7t [place] [address] Care Team Providers Care Social Worker Delinquency Prevention Name Role Phone Janki George MD Primary Care Provider + Encounter Details Date Type Department Care Team ([facility] st Contact Info) Description 08/13/2022 Orders Only [facility] [address] [place], [place] [phone] Blanca Brown LPN Social History Tobacco Use Types Packs/Day Years [...] PM EDT documented as of this encounter Plan of Treatment Not on file documented as of this encounter Visit Diagnoses Not on filedocumented in this encounter Additional Health Concerns Assessment Noted Time PHQ-9 Depression Total Score: 8 05/21/19 23 1:03 PM EST documented as of this encounter Care Teams Social Worker Delinquency Prevention Relationship Specialty Start Date End Date Janki George MD [address] [place] [phone] PCP - General Family Medicine 01/30/16 Shy Barrera Inspector And SorterGeneral Science Teacher 03/20/23 Ed Jarrett Sampler And Test PreparerGeneral Science Teacher 12/17/23 documented as of this encounter
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
[2024-05-25] MEDS: Ibuprofen 400 MG TABLET PO (12:22)
[2024-05-25] MEDS: Acetaminophen 325 MG TABLET 975 MG PO (12:22)
[2024-05-25 12:28] VITALS: BP 123/76; PULSE 107; RESP 18; TEMP 37.4; O2SAT 96
== END 2024-05-25 12:29 | disposition home or self-care (01) ==
PROVIDERS: Emergency Provider Emergency Medicine; PCP Internal Medicine
DX: J10.1 Influenza due to other identified influenza virus with other respiratory manifestations (principal); R50.9 Fever, unspecified; M79.10 Myalgia, unspecified site; Z03.818 Encounter for observation for suspected exposure to other biological agents ruled out; Z79.899 Other long term (current) drug therapy
CPT/HCPCS: 0241U; 71045; 81025; 99283

== ENCOUNTER → 2024-05-25 08:42 | Outpatient (BNV) | payer MEDICAID, SELFPAY | PROVIDERS: PCP Internal Medicine; Visit Provider Radiology Diagnostic Radiology | DX: R05.9 Cough, unspecified (principal) | CPT/HCPCS: 71045 ==

== ENCOUNTER 2024-07-03 16:00 | Emergency (ER) | payer MEDICAID, SELFPAY ==
[2024-07-03 16:04] VITALS: BP 126/80; PULSE 72; RESP 18; TEMP 36.8; O2SAT 99; BMI 24.9
--- NOTE | 2024-07-03 16:04 | ED_ITS ---
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 Tetanus unknown. Denies plastic breaking or concern of retained foreign body. Denies injury to other area, numbness, tingling, weakness, decreased ROM Related Data Home Medications ?Medication ?Instructions ?Recorded ?Confirmed hydroxyzine HCl 10 mg tablet 10 mg PO DAILY 01/03/23 07/04/23 Previous Rx's ?Medication ?Instructions ?Recorded cyclobenzaprine 10 mg tablet 10 mg PO TID PRN muscle spasm #14 09/10/20 tabs ibuprofen 600 mg tablet 600 mg PO Q6H PRN pain #30 tabs 09/10/20 naproxen 500 mg tablet (Naprosyn) 500 mg PO BID #20 tabs 07/29/23 Allergies Allergy/AdvReac Type Severity Reaction Status Date / Time No Known Allergies Allergy Verified 07/03/24 16:06 Review of Systems Review of Systems: Yes all other systems are reviewed and are negative Constitutional: Constitutional: Reports as per [facility] Past Medical History Attestation statement: The following information was validated with the patient. Source: old records reviewed Medical History delivery delivered Hernia Anemia Surgical History History of hemorrhoidectomy (2016) History of ventral hernia repair (2018) History of umbilical hernia repair (11/17/13) History of delivery (02/2013) Hx of appendectomy Family History Family History Father No problems noted. Mother No problems noted. 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 Physical Exam ED Vital Signs: Vital Signs - 24 hr 07/03/24 16:04 07/03/24 17:13 Temperature 98.3 F 98.3 F Pulse Rate 72 72 Respiratory Rate 18 18 Blood Pressure 126/80 126/80 Pulse Oximetry 99 99 Oxygen Delivery Method Room Air Room Air BMI result Body Mass Index 24.9 Const General: cooperative, healthy appearing and no acute distress Orientation/consciousness: patient oriented x3 Limitations: no limitations HENMT Head: Yes normal to inspection and Yes atraumatic Ears: hearing grossly normal bilaterally General nose exam: Normal external nose present Face and sinus: Yes normal facial exam Eyes General: appearance normal, both eyes and all related structures EOM: EOMs intact bilaterally Neck Neck: Yes normal visual inspection and Yes no meningeal signs Resp Effort & Inspection: normal respiratory effort and no respiratory distress Cardio Rate: regular rate GI Inspection: Yes normal to inspection Palpation (GI): Soft to palpation, nontender, no guarding and not rigid Skin Other: 1 cm superficial laceration noted to right 4th digit MCP. Underlying structures appear intact. Full range of motion intact. Neurovascularly intact. [id number] opposition intact Rashes: no rashes Neuro General: patient oriented x3, tone normal and no meningeal signs Cranial nerves: Yes CN's II-XII intact bilaterally Gait exam (Neuro): Normal gait present Extrem General: Yes normal to inspection Course Course Course Narrative: RME performed by Molly Ham PA-C. Patient is a 28 year old assigned female at presenting to the emergency department with right hand pain. Patient states she cut her right hand with the bottom of the rear view mirror in her car. Detailed physical exam and review of systems are deferred to the plaster machine tender. Patient placed back in the waiting room pending room availability. -Sutures placed by ZENAIDA Walsh Results discussed with patient including worrisome signs and symptoms and strict return precautions, and when to return to the emergency department. They verbalized understanding and feel safe for discharge at this time. Medications Administered Discontinued Medications Generic Name Dose Route Start Last Admin Trade Name Freq PRN Reason Stop Dose Admin Diphtheria/Tetanus/Acell Pertussis 0.5 ml 07/03/24 16:06 07/03/24 16:31 Diphth,Pertus(Acell),Tet Adult 0.5 Ml Syringe IM 07/03/24 16:07 0.5 ml .ONCE ONE Administration Procedures Laceration Laceration 1: Site: hand Side (If applicable): right Size (cm): 1 Description: linear and clean Depth: simple, single layer Local Anesthetic: lidocaine 1% Amount of anesthesia used (mL): 2 Pre-repair: wound explored Skin layer closed with: nylon Size (cm): 4-0 Number of sutures: 2 Technique: simple, interrupted Medical Decision Making Medical Decision Making MDM Narrative: 28-year-old female with no significant past medical history presenting to the ED complaining of laceration to right hand s/p cutting on edge of plastic mirror [employer] WORK[employer]. On exam vital signs stable, NAD, nontoxic appearing, physical exam as noted above. Laceration needing suture repair. No evidence of tendon/ligamental rupture deeper injury. Unlikely fracture or retained foreign body Plan: Uptake tetanus, repair wounds Please refer to course for remaining clinical decision making, interpretation of labs/imaging results, and discussions with consultants and/or family members. Differential Diagnosis Differential Diagnoses: The differential diagnosis associated with the presentation includes As above External Record Review External record reviewed: Inpatient record, Office record, Outpatient record, Prior outpatient labs, Prior outpatient radiology, Primary care record and Outside ED record Tests considered The following testing was considered but not selected: As above Attestation Attending Attestation: I was personally present and available for consultation in the ED. I have reviewed everything on the chart that is available and agree with the documentation provided by the MICHAEL including discussion about the assessment, treatment plan and discussion. Based on medical record the care appears appropriate. Zeus Hill MD [facility] Emergency Medicine Discharge Plan Discharge Clinical Impression: Laceration Patient Disposition: Home, Self-Care Instructions: Laceration (DC) Additional Instructions: Your wounds were repaired today in the emergency department. Keep dry and clean. You need to return to any emergency department, urgent care, or your PCPs office in 7-10 days for suture removal Apply bacitracin and or Neosporin daily Once sutures are removed apply anti scar cream like Mederma If area begins look infected, is red, there is drainage, streaking, or you have fever please return to the emergency department Prescriptions: No Action cyclobenzaprine 10 mg tablet 10 mg PO TID PRN (Reason: muscle spasm) Qty: 14 0RF ibuprofen 600 mg tablet 600 mg PO Q6H PRN (Reason: pain) Qty: 30 0RF naproxen [Naprosyn] 500 mg tablet 500 mg PO BID Qty: 20 0RF hydroxyzine HCl 10 mg tablet 10 mg PO DAILY Referrals: [facility] [Primary Care Provider] - 1 week (For suture removal) Interventions: ED Discharge Assessment Last Done: 07/03/24 17:13 Discharge Date/Time: 07/03/24 17:14 Print Language: Italian
--- OUTSIDE RECORDS SUMMARY | 2024-07-03 16:29 | XMS_ITS | Encounter Summary ---
Author Organization [employer] Address [address] [place] [address] Care Team Providers Care Product Support Specialist Name Role Phone Janki George MD Primary Care Provider + Encounter Details Date Type Department Care Team ([facility] st Contact Info) Description 07/02/2024 Population Health Risk Score [facility] (C3) Department [address] [phone] Provider, Population Health Generic Social History Tobacco Use Types Packs/Day Years [...] is your housing situation today? I have natealex anderson 08/15/[address] you [...] as of this encounter Plan of Treatment Upcoming Encounters Date Type Department Care Team (Late st Contact Info) Description 09/03/2024 9:45 AM EDT Office Visit [facility] [address] [place] [id number] Janki George MD [address] [place] [phone] documented as of this encounter Visit Diagnoses Not on filedocumented in this encounter Additional Health Concerns Assessment Noted Time PHQ-9 Depression Total Score: 8 10/27/19 24 11:16 AM EDT documented as of this encounter Care Teams Product Support Specialist Relationship Specialty Start Date End Date Janki George MD [address] [place] [id number] PCP - General Family Medicine 01/30/16 Shy Barrera Mental Health ProfessionalFinal Assembly And Packing Supervisor 03/20/23 Ed Jarrett Borough CoordinatorFinal Assembly And Packing Supervisor 12/17/23 documented as of this encounter
--- OUTSIDE RECORDS SUMMARY | 2024-07-03 16:29 | XMS_ITS | Encounter Summary ---
Author Organization [employer] Address [address] [place] [address] Care Team Providers Care Wood Grinder Name Role Phone Janki George MD Primary Care Provider + Reason for Visit * Reason Onset Date Comments Med Refill 04/30/2023 Encounter Details Date Type Department Care Team (Late st Contact Info) Description 04/30/2023 Refill [facility] [address], [place] [phone] Myron Bustos MD [address] [place] [address] Laceration of left hand, foreign body presence [...] Description 09/03/2024 9:45 AM EDT Office Visit [facility] [address] [place] [address] Janki George MD [address] [place] [address] documented as of this encounter Visit Diagnoses Diagnosis Laceration of left hand, foreign body presence unspecified, initial encounter documented in this encounter Additional Health Concerns Assessment Noted Time PHQ-9 Depression Total Score: 8 02/11/20 23 11:01 AM EDT documented as of this encounter Care Teams Wood Grinder Relationship Specialty Start Date End Date Janki George MD [address] [place] [id number] PCP - General Family Medicine 01/30/16 Shy Barrera Production Statistical ClerkElectromyographic Technician 03/20/23 Ed Jarrett Software Client ArchitectElectromyographic Technician 12/17/23 documented as of this encounter
--- OUTSIDE RECORDS SUMMARY | 2024-07-03 16:29 | XMS_ITS | Clinical Summary ---
Author Organization [facility] Address [address] [place] [address] Care Team Providers Care Tool Technician Name Role Phone Unavailable Primary Care Provider [...] me in 6 weeks. Bipolar II disorder ([facility]) 05/21/2022 Overview (12/11/2023): Last Assessment & Plan: [...] ran out. 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 Since this provider will be retiring, patient will be referred to new [facility] psyhiatric provider. Patient is aware that appointments will be via televisit and that provider will not be an employee of [facility]. She gives permission to share PHI. Any issues or concerns to call [facility]. All her questions were answered and I [...] Cervical Cancer Screening 08/26/2016 Pap Smear 08/26/2016 [id number] ( season) 2023 01/21/2022, 06/05/2021, 05/16/2021 Imm-Influenza [...] Discontinued Vaginal Pap Discontinued Vulvoscopy Discontinued Insurance [place] MEDICAID [facility]
--- OUTSIDE RECORDS SUMMARY | 2024-07-03 16:29 | XMS_ITS | Encounter Summary ---
Author Organization [employer] Address [address] [facility] 7t [place] [address] Care Team Providers Care Control Panel Builder Name Role Phone Janki George MD Primary Care Provider + Reason for Visit * Reason Onset Date Comments May recall 06/10/2024 Encounter Details Date Type Department Care Team ([facility] Contact Info) Description 06/10/2024 Telephone [facility] MEDICINE [address] [place], [place] [phone] Janki George MD [address] [place], [place] [phone] May recall Social History Tobacco Use Types Packs/Day Years [...] encounter Miscellaneous Notes * Telephone Encounter - Nichol Reese MA - 06/10/2024 1:23 PM EST Telephone call to patient to schedule the following recall: Visit type: Follow up Appointment notes: fu DUB/hb Patient agree to appointment on 09/03/24 at 9:45 am with Doris. documented in this encounter Plan of Treatment Upcoming Encounters Date Type Department Care Team (Late st Contact Info) Description 09/03/2024 9:45 AM EDT Office Visit [facility] MEDICINE [address] [place] [address] Janki George MD [address] [place] [address] documented as of this encounter Visit Diagnoses Not on filedocumented in this encounter Additional Health Concerns Assessment Noted Time PHQ-9 Depression Total Score: 8 10/27/19 24 11:16 AM EDT documented as of this encounter Care Teams Control Panel Builder Relationship Specialty Start Date End Date Janki George MD [address] [place] [id number] PCP - General Family Medicine 01/30/16 Shy Barerra Hardware Sales AssistantCat Breeder 03/20/23 Ed Jarrett Fuel ManagerCat Breeder 12/17/23 documented as of this encounter
--- OUTSIDE RECORDS SUMMARY | 2024-07-03 16:29 | XMS_ITS | Encounter Summary ---
Author Organization [employer] Address [address] [facility] 7t [place] [address] Care Team Providers Care Cue Selector Name Role Phone Janki George MD Primary Care Provider + Reason for Visit * Reason Onset Date Comments Med Refill 12/11/2023 Encounter Details Date Type Department Care Team ([facility] st Contact Info) Description 12/11/2023 Refill [facility] MEDICINE [address] [place], [place] [phone] Bean Cagle FNP Social History Tobacco Use [...] Description 09/03/2024 9:45 AM EDT Office Visit [facility] MEDICINE [address] [place], [place] [phone] Janki George MD [address] [place] [address] documented as of this encounter Visit Diagnoses Not on filedocumented in this encounter Additional Health Concerns Assessment Noted Time PHQ-9 Depression Total Score: 8 10/27/19 24 11:16 AM EDT documented as of this encounter Care Teams Cue Selector Relationship Specialty Start Date End Date Janki George MD [address] [place] [id number] PCP - General Family Medicine 01/30/16 Shy Barrera Rn NeurologyCrewman Main Battle Tank 03/20/23 Ed Jarrett Development ChemistCrewman Main Battle Tank 12/17/23 documented as of this encounter
--- OUTSIDE RECORDS SUMMARY | 2024-07-03 16:29 | XMS_ITS | Encounter Summary ---
Author Organization [employer] Address [address] [place] [address] 7t [place] [address] Care Team Providers Care Change Agent Name Role Phone Janki George MD Primary Care Provider + Encounter Details Date Type Department Care Team (Late Contact Info) Description 08/13/2022 Orders Only [facility] CHC MED & PEDS [address] [place], [place] [phone] Blanca Brown LPN Social History Tobacco Use [...] Description 09/03/2024 9:45 AM EDT Office Visit [facility] MEDICINE [address] [place], [place] [phone] Janki George MD [address] [place], [place] [phone] documented as of this encounter Visit Diagnoses Not on filedocumented in this encounter Additional Health Concerns Assessment Noted Time PHQ-9 Depression Total Score: 8 05/21/19 23 1:03 PM EST documented as of this encounter Care Teams Change Agent Relationship Specialty Start Date End Date Janki George MD [address] [place] [id number] PCP - General Family Medicine 01/30/16 Shy Barrera Material Handler 2Nd ShiftEmergency Services Dispatcher 03/20/23 Ed Jarrett Imaging ClerkEmergency Services Dispatcher 12/17/23 documented as of this encounter
--- OUTSIDE RECORDS SUMMARY | 2024-07-03 16:29 | XMS_ITS | Encounter Summary ---
Author Organization [employer] Address [address] [place] [address] 7t [place] [address] Care Team Providers Care Real Estate Services Coordinator Name Role Phone Janki George MD Primary Care Provider + Reason for Visit * Reason Onset Date Comments Triage 08/22/2022 Encounter Details Date Type Department Care Team ([facility] st Contact Info) Description 08/22/2022 Telephone [facility] MEDICINE [address] [place], [place] [phone] Janki George MD [address] [place], [place] [phone] Triage Social History Tobacco Use Types Packs/Day [...] Description 09/03/2024 9:45 AM EDT Office Visit [facility] MEDICINE [address] [place] [address] Janki George MD [address] [place] [address] documented as of this encounter Visit Diagnoses Not on filedocumented in this encounter Additional Health Concerns Assessment Noted Time PHQ-9 Depression Total Score: 8 05/21/19 23 1:03 PM EST documented as of this encounter Care Teams Real Estate Services Coordinator Relationship Specialty Start Date End Date Janki George MD [address] [place] [address] PCP - General Family Medicine 01/30/16 Shy Barrera General Utility Machine OperatorClinical Cytopathologist 03/20/23 Ed Jarrett Delivery AideClinical Cytopathologist 12/17/23 documented as of this encounter
--- OUTSIDE RECORDS SUMMARY | 2024-07-03 16:29 | XMS_ITS | Encounter Summary ---
Author Organization [employer] Address [address] [facility] [address] 7[address] [place] [address] Care Team Providers Care City Superintendent Name Role Phone Janki George MD Primary Care Provider + Encounter Details Date Type Department Care Team (Latest Contact Info) Description 06/03/2024 Travel Social History Tobacco Use Types Packs/Day Years [...] Description 09/03/2024 9:45 AM EDT Office Visit [facility] MEDICINE [address] [place] [address] Janki George MD [address] [place], [place] [phone] documented as of this encounter Visit Diagnoses Not on filedocumented in this encounter Additional Health Concerns Assessment Noted Time PHQ-9 Depression Total Score: 8 10/27/19 24 11:16 AM EDT documented as of this encounter Care Teams City Superintendent Relationship Specialty Start Date End Date Janki George MD [address] [place] [id number] PCP - General Family Medicine 01/30/16 Shy Barrera Roofing TechnicianSyrup Shed Supervisor 03/20/23 Ed Jarrett Delphi ProgrammerSyrup Shed Supervisor 12/17/23 documented as of this encounter
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
[2024-07-03] MEDS: Diphth,Pertus(ACell),Tet Adult 0.5 ML SYRINGE IM (16:31)
[2024-07-03 17:13] VITALS: BP 126/80; PULSE 72; RESP 18; TEMP 36.8; O2SAT 99
== END 2024-07-03 17:14 | disposition home or self-care (01) ==
PROVIDERS: Emergency Provider Emergency Medicine
DX: S61.216A Laceration without foreign body of right little finger without damage to nail, initial encounter (principal); W26.8XXA Contact with other sharp object(s), not elsewhere classified, initial encounter; Y93.9 Activity, unspecified; Y92.9 Unspecified place or not applicable; Y99.9 Unspecified external cause status; Z23 Encounter for immunization
CPT/HCPCS: 12001; 90471; 90715; 99282; 99284

== ENCOUNTER 2024-11-30 08:46 | Emergency (ER) | payer MEDICAID, SELFPAY ==
--- NOTE | ~2024-11-30 | CT_ITS ---
EXAMINATION: CT HEAD WITHOUT CONTRAST CLINICAL INFORMATION: WAY COMPARISON: March 13, 2019. TECHNIQUE: Contiguous axial imaging was performed from the skull base to vertex without intravenous administration of contrast. This CT examination was performed using dose optimization techniques as appropriate, variously including the following: *Automated exposure control *Adjustment of mA and/or kV according to patient size (this includes techniques or standardized protocols for targeted exams where dose is matched to indication/reason for exam; i.e. extremities or head) *Use of iterative reconstruction technique DLP: 602 mGy-cm FINDINGS: No acute intracranial hemorrhage, mass effect, midline shift, hydrocephalus or herniation. Wei-white matter differentiation is normal. Posterior cranial fossa contents demonstrated no acute hemorrhage or mass effect. Normal position of the patella tonsils. Sellar/suprasellar region demonstrated no gross masses. No air-fluid levels in the included paranasal sinuses. Tympanic cavities and mastoid cells are aerated. No gross mass or fluid collections in the intraconal or extraconal compartments of the orbits. No acute fracture in the bony calvarium. CT/CT head/brain wo IV con IMPRESSION: No acute or structural brain abnormality by CT. Electronically signed by: Andrei Vargas MD 11/30/2024 10:48 AM EDT
[2024-11-30 08:48] VITALS: BP 123/64; PULSE 76; RESP 16; TEMP 36.8; O2SAT 98; BMI 28.0
--- NOTE | 2024-11-30 09:23 | ED.HA ---
HPI - Headache General Chief Complaint: Headache Stated Complaint: Migraine Time Seen by Provider: 11/30/24 09:00 Source: patient Mode of arrival: ambulatory Limitations: no limitations History of Present Illness HPI Narrative: This is 29 years old female presented to the emergency department with a chief complaint of headache she reports history of migraines she states that she has been having headache for about 2 months usually she takes Imitrex more right now is not working. Denies any fever chills vomiting headache similar to prior migraines MD elicited complaint: headache Onset (ago): month(s) (2) Onset description: gradually Severity: moderate Quality & Timing: aching Exacerbating factors: none Relieving factors: nothing Context: occurred at rest Associated symptoms: none Treatments prior to arrival: none Related Data Home Medications ?Medication ?Instructions ?Recorded ?Confirmed hydroxyzine HCl 10 mg tablet 10 mg PO DAILY 01/03/23 07/04/23 Previous Rx's ?Medication ?Instructions ?Recorded cyclobenzaprine 10 mg tablet 10 mg PO TID PRN muscle spasm #14 09/10/20 tabs ibuprofen 600 mg tablet 600 mg PO Q6H PRN pain #30 tabs 09/10/20 naproxen 500 mg tablet (Naprosyn) 500 mg PO BID #20 tabs 07/29/23 Allergies Allergy/AdvReac Type Severity Reaction Status Date / Time No Known Allergies Allergy Verified 11/30/24 08:51 Review of Systems Constitutional: Constitutional: Reports no additional constitutional complaints ENT: Reports system reviewed and no additional complaints, except as documented Cardiovascular: Cardiovascular: Reports no additional cardiovascular complaints Integumentary/Breasts: Skin/Breast: Reports system reviewed and no additional complaints, except as docu PMFSH Past Medical History Attestation statement: The following information was validated with the patient. Medical History delivery delivered Hernia Anemia Surgical History History of hemorrhoidectomy (2015) History of ventral hernia repair (2017) History of umbilical hernia repair (11/17/13) History of delivery (02/2013) Hx of appendectomy Family History Family History Father No problems noted. Mother No problems noted. 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 Physical Exam Exam: Exam: Yesterday no acute distress looks well Vital Signs: Vital Signs: Last Vital Signs Temp 98.1 F 11/30/24 12:16 Pulse 80 11/30/24 12:16 Resp 18 11/30/24 12:16 BP 115/60 11/30/24 12:16 Pulse Ox 99 11/30/24 12:16 O2 Del Method Room Air 11/30/24 12:16 BMI result Body Mass Index 28.0 Const: General: cooperative Orientation/consciousness: patient oriented x3 Limitations: no limitations HEENT: Head: Yes normal to inspection Ears: hearing grossly normal bilaterally General nose exam: Normal external nose present Face and sinus: Yes normal facial exam Mouth: Normal oral and palatal mucosa present Neck: Neck: Yes normal visual inspection Carotids: normal carotid upstroke Lymphatic: no lymphadenopathy noted Chest: Chest palpation & inspection: normal inspection of the chest Resp: Effort & Inspection: normal respiratory effort Auscultation: clear to auscultation bilaterally Cardio: Jugular venous distension: no JVD Rate: regular rate Rhythm: regular rhythm GI: Inspection: Yes normal to inspection Palpation (GI): Soft to palpation Auscultation: normal bowel sounds : General: Yes no CVA tenderness Back/Spine/Pelvis: Back: no CVA tenderness Neuro: General: patient oriented x3 Cranial nerves: Yes CN's II-XII intact bilaterally Course Reevaluation(s) Reevaluation #1: The re-examined now the patient is doing much better headache is gone labs okay head CT negative I think at this point she can be discharged home she is comfortable with that Time: 12:06 Medications Administered Discontinued Medications Generic Name Dose Route Start Last Admin Trade Name Freq PRN Reason Stop Dose Admin Diphenhydramine HCl 25 mg 11/30/24 09:21 11/30/24 10:10 Diphenhydramine Hcl 50 Mg/Ml Vial IVPUSH 11/30/24 09:22 25 mg ONCE ONE Administration Sodium Chloride 1,000 mls @ 999 mls/hr 11/30/24 09:30 11/30/24 12:16 Ns IVCONT 11/30/24 10:30 Infused .Q1H1M YUMIKO Infusion Metoclopramide HCl 10 mg 11/30/24 09:21 11/30/24 10:10 Metoclopramide Hcl 10 Mg/2 Ml Vial IVPUSH 11/30/24 09:22 10 mg ONCE ONE Administration Medical Decision Making Medical Decision Making [facility] Narrative: Patient is here with headache we will check labs administer Reglan and Benadryl Differential Diagnosis Differential Diagnoses: The differential diagnosis associated with the presentation includes Migraine/tension headache/trigeminal neuralgia/history is not consistent with subarachnoid bleed no sudden/history not consistent with meningitis no fever no neck pain Admission/Observation Consideration of admission/observation: Escalation of care including admission/observation considered Lab Data [facility] Lab Attestation statement: I reviewed the patient's lab results. 11/30/24 09:43 11/30/24 09:43 Labs: Lab Results 11/30/24 Range/Units 09:43 WBC 6.3 (4.8-10.8) X10*3/uL RBC 3.72 L (4.20-5.50) X10*6/uL Hgb 11.6 L (12.0-16.0) g/dl Hct 34.0 L (37.0-47.0) % MCV 91.4 (80.0-98.0) fL MCH 31.2 (27.0-33.0) pg MCHC 34.1 (31.0-35.0) g/dl RDW 12.1 (11.0-16.0) % Plt Count 212 (160-400) X10*3/uL MPV 9.8 (9.4-12.3) fL Immature Gran % (Auto) 0.3 (0.0-0.4) % Neut % (Auto) 61.9 (45-73) % Lymph % (Auto) 28.1 (20-40) % Deuel % (Auto) 7.2 (2-11) % Eos % (Auto) 2.2 (0-4) % Baso % (Auto) 0.3 (0-2) % Lymph # (Auto) 1.8 (1.2-4.9) X10*3/uL Deuel # (Auto) 0.5 (0.1-1.2) X10*3/uL Eos # (Auto) 0.1 (0.0-0.4) X10*3/uL Baso # (Auto) 0.0 (0.0-0.2) X10*3/uL Abs Immat Gran (auto) 0.02 (0.00-0.03) X10*3/uL Absolute Neuts (auto) 3.9 (2.0-8.3) x10*3/uL Absolute Nucleated RBC 0.000 (0.0-0.012) X10*3/uL Nucleated RBC % (auto) 0.0 (0.0-0.2) /100WBC Sodium 141 (135-145) mmol/L Potassium 4.2 (3.3-5.1) mmol/L Chloride 109 H (96-108) mmol/L Carbon Dioxide 26 (22-29) mmol/L Anion Gap 10 L (12-20) BUN 12 (9-16) mg/dL Creatinine 0.69 (0.5-1.4) mg/dL Estim Creat Clear Calc 101.2 Estimated GFR > 60 Random Glucose 92 (60-115) mg/dL Calcium 8.7 (8.4-10.2) mg/dL Total Bilirubin 0.5 (0.0-1.0) mg/dL AST 19 (5-31) U/L ALT 19 (0-31) U/L Alkaline Phosphatase 85 (39-117) U/L Total Protein 6.3 L (6.5-8.0) g/dL Albumin 3.9 (3.5-5.0) g/dL Beta HCG, Quant < 2 mIU/mL Independent Interpretation I performed an independent interpretation of an: CT Scan Interpretation: Negative Radiology Impression Discussion of test interpretation with radiology: I have reviewed the radiologist's reading. Radiologist Impression: FINDINGS: No acute intracranial hemorrhage, mass effect, midline shift, hydrocephalus or herniation. Wei-white matter differentiation is normal. Posterior cranial fossa contents demonstrated no acute hemorrhage or mass effect. Normal position of the patella tonsils. Sellar/suprasellar region demonstrated no gross masses. No air-fluid levels in the included paranasal sinuses. Tympanic cavities and mastoid cells are aerated. No gross mass or fluid collections in the intraconal or extraconal compartments of the orbits. No acute fracture in the bony calvarium. CT/CT head/brain wo IV con IMPRESSION: No acute or structural brain abnormality by CT. Electronically signed by: Andrei Vargas MD 11/30/2024 10:48 AM EDT RP Chronic Conditions Migraine Discharge Plan Discharge Clinical Impression: Migraine Patient Disposition: Home, Self-Care Instructions: Migraine Headache (ED) Additional Instructions: Follow-up with your primary care physician also we will give you the name of the neurologist return to emergency room if you worse Prescriptions: No Action cyclobenzaprine 10 mg tablet 10 mg PO TID PRN (Reason: muscle spasm) Qty: 14 0RF ibuprofen 600 mg tablet 600 mg PO Q6H PRN (Reason: pain) Qty: 30 0RF naproxen [Naprosyn] 500 mg tablet 500 mg PO BID Qty: 20 0RF hydroxyzine HCl 10 mg tablet 10 mg PO DAILY Referrals: Nina Murry MD [Physician, Neurology] - 12/07/24 Interventions: ED Discharge Assessment Last Done: 11/30/24 12:16 Discharge Date/Time: 11/30/24 12:16 Print Language: Maltese
--- OUTSIDE RECORDS SUMMARY | 2024-11-30 09:37 | XMS_ITS | Clinical Summary ---
Author Organization [address] Address [address] [place] [address] Care Team Providers Care Surgery Specialist Name Role Phone Janki George Primary Care Provider Allergies No known active allergies Social History [...] 63 08/06/2020 1:46 PM EDT Temperature 36.9 C (98.5 F) 08/06/2020 1:46 PM EDT Respiratory Rate 18 08/06/2020 1:46 PM EDT Oxygen Saturation 99% 08/06/2020 1:46 PM EDT Inhaled Oxygen Concentration - - Weight - - Height - - Body Mass Index - - Plan of Treatment Health Maintenance Due Date Last Done Comments HIV screening 08/26/2008 Hepatitis C screening 08/26/2013 Tetanus adult (Td q 10,TDAP once) 2015 Cervical cancer screening 08/26/2016 Covid-19 vaccine series (2023- season) 2023 Influenza vaccine 12/20/2024 RSV Immunization (1 - 1-dose 75+ series) 08/26/2070 Meningococcal Vaccine Aged Out No mehnaz socorro eligible based on patient's age to complete this topic Pneumococcal Vaccine (2 - 49 years) Aged Out No longer eligible based on patient's age to complete this topic Insurance [id number] MEDICAID [id number] MEDICAID MOTOR VEHICLE GENERIC [id number] MEDICAID [employer] VE[employer] GENERIC Care Teams Surgery Specialist Relationship Specialty Start Date End Date Janki George [address] [place], [place] [id number] PCP - General 08/06/20
--- OUTSIDE RECORDS SUMMARY | 2024-11-30 09:37 | XMS_ITS | Clinical Summary ---
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 MAY REPEAT ONCE AFTER 2 HOURS IF NEEDED DO NOT EXCEED 200mg / 24 HOURS) Active cariprazine 3 mg capIndications: Bipolar II disorder (CMS & HHS-HCC) Take 1 Capsule by mouth daily. for [...] me in 6 weeks. Bipolar II disorder ([facility]) 05/21/2022 Overview (12/11/2023): Last Assessment & Plan: [...] ran out. Unfortunately when she went to [facility] the new Rx for Vraylar was informed [...] counseling and will also speak with [facility] family therapist to request referral. Since this provider will be retiring, patient will be referred to new [facility] psyhiatric provider. Patient is aware that appointments will be via televisit and that provider will not be an employee of [facility]. She gives permission to share PHI. Any issues or concerns to call [facility]. All her questions were answered and I [...] Date Resolved Date Diarrhea 10/01/2017 01/12/2024 Immunizations Immunization Administration Dates Next Due DTAP (Infanrix) 09/14/2006, 0,03/03/1996,12/31,1995 Flu, Multi Dose 0.5 ML 03/30/2019 Flu, Preservative Free 01/07/2023,2021,01/15/2017,05/11 HEP B, PED/ADOL (XQOOCTK-F-HSRL/RECOMBIVAX-PEDS) 05/04/1996,01/01/1996,1995 HPV 9 (Gardasil) 06/21/2019,03/30/2019 Hep B, Adult/Adol ([id number]-AZNFA/RECOMBIVAX-ADULT) 05/23/2023 IPV (IPOL) 09/28/1999, 6,01/01/1996,10/29 MENINGOCOCCAL MPSV4 09/09/2006 MMR (MMR II/Priorix) 09/28/1999,09/02/1996 TDAP 01/01/2023,04/11/2017 Varicella (Varivax), Live Vaccine 06/09/2008, Family History Medical History Relation Name Comments [...] Health Maintenance Due Date Last Done Comments Anxiety Screening 1995 HPV Screening 1995 Hepatitis C Screening 1995 Pap + HPV 1995 HIV Screening 08/26/2010 Relationship Safety Screening/Counseling 08/26/2010 Hypertension Screening (#1) 08/26/2013 Cervical Cancer Screening 08/26/2016 Pap Smear 08/26/2016 [id number] ( season) 2023 01/21/2022, 06/05/2021, 05/16/2021 Alcohol and Drug Screen 04/21/2024 Depression Annual Screen 04/21/2024 Tobacco Screening 12/10/2024 12/11/2023 Imm-Influenza (#1) 2024 01/07/2023, 0 05/16/2021, 03/30/2019, Additional history exists Imm-DTaP/Tdap/Td (8 - Td or Tdap) 01/01/2033 01/01/2023, 04/11/2017, 09/14/2006, Additional history exists Imm-Hepatitis B Completed 05/23/2023, 04/21, 01/01/1996, Additional history exists Cervical Ablation/Cold-Knife Conization Discontinued Cervical Cryotherapy Discontinued Colposcopy Discontinued Endometrial Biopsy Discontinued Excision/Leep Discontinued HPV Genotyping Discontinued Vaginal Pap Discontinued Vulvoscopy Discontinued Insurance [place] MEDICA[place] [facility]
[2024-11-30 09:46] LABS: MANUAL DIFF FLAG NO
[2024-11-30 09:49] LABS: Hematocrit 34.0 % (37.0-47.0); Hemoglobin 11.6 g/dl (12.0-16.0); Imm Gran Abs Auto 0.02 X10*3/uL (0.00-0.03); Imm Gran Pct Auto 0.3 % (0.0-0.4); Lymphocytes Absolute Auto 1.8 X10*3/uL (1.2-4.9); Mean Corpuscular HGB Conc 34.1 g/dl (31.0-35.0); Mean Corpuscular Hemoglobin 31.2 pg (27.0-33.0); Mean Corpuscular Volume 91.4 fL (80.0-98.0); NRBC Abs Auto 0.000 X10*3/uL (0.0-0.012); NRBC Pct Auto 0.0 /100WBC (0.0-0.2); Platelet Count 212 X10*3/uL (160-400); Red Blood Count 3.72 X10*6/uL (4.20-5.50); White Blood Count 6.3 X10*3/uL (4.8-10.8)
[2024-11-30 10:00] VITALS: BP 102/77; PULSE 72; RESP 18; TEMP 36.8; O2SAT 100
[2024-11-30 10:18] LABS: Alanine Aminotransferase 19 U/L (0-31); Albumin Level 3.9 g/dL (3.5-5.0); Alkaline Phosphatase 85 U/L (39-117); Anion Gap 10 (12-20); Aspartate Amino Transferase 19 U/L (5-31); Blood Urea Nitrogen 12 mg/dL (9-16); Calcium 8.7 mg/dL (8.4-10.2); Carbon Dioxide 26 mmol/L (22-29); Chloride 109 mmol/L (96-108); Creatinine Clr Calc Pharmacy 101.2; Estimated Glomerular Filt Rate > 60; Potassium 4.2 mmol/L (3.3-5.1); Sodium 141 mmol/L (135-145); Total Protein 6.3 g/dL (6.5-8.0)
[2024-11-30 12:00] VITALS: BP 115/60; PULSE 80; RESP 18; TEMP 36.7; O2SAT 99
[2024-11-30 12:16] VITALS: BP 115/60; PULSE 80; RESP 18; TEMP 36.7; O2SAT 99
== END 2024-11-30 12:16 | disposition home or self-care (01) ==
PROVIDERS: Emergency Provider Emergency Medicine
DX: G43.909 Migraine, unspecified, not intractable, without status migrainosus (principal); Z79.899 Other long term (current) drug therapy
CPT/HCPCS: 36415; 70450; 80053; 84702; 85025; 96361; 96374; 96375; 99283; 99284; J1200; J2765

== ENCOUNTER → 2024-11-30 09:22 | Outpatient (BNV) | payer MEDICAID, SELFPAY | PROVIDERS: Emergency Provider Emergency Medicine; Visit Provider Radiology Diagnostic Radiology | DX: R51.9 Headache, unspecified (principal) | CPT/HCPCS: 70450 ==

== ENCOUNTER 2024-12-02 09:22 | Outpatient (AMB) | payer MEDICAID, SELFPAY ==
--- NOTE | 2024-12-02 09:40 | A.OFFVIS_ITS ---
Vital Signs 3 12/02/24 09:44 Height 5 ft Weight 143 lb BMI 27.9 BP 119/75 Blood Pressure Location Rt brachial Position Sitting Pulse 68 Intake Visit Reasons: lipoma RU extremity Intake Note: Patient is seen in office for evaluation of a lipoma of the right upper extremity. Present for 4yrs. Pt c/o: enlarging. Denies pain. No prior trauma to area. L.OV: (hernia) Attendant [facility] Required: No Accompanied by: Self / Same As Patient Allergies No Known Allergies Allergy (Verified 12/02/24 09:43) HPI Comments Details: 29-year-old female patient presenting with a gradually enlarging soft tissue mass located in the right upper arm. She feels the lump was initially quite small approximately 3 years ago but has gradually increased in size. She denies any significant pain, redness or discharge. She did have a previous lump located in the left axilla which resolved without any surgical intervention. She would like to have this enlarging lump removed. [facility] Medical History delivery delivered Hernia Anemia Surgical History History of hemorrhoidectomy (2016) History of ventral hernia repair (2017) History of umbilical hernia repair (11/17/13) History of delivery (02/2013) Hx of appendectomy Family History Father No problems noted. Mother No problems noted. 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 Review of Systems Const All systems reviewed & are unremarkable except as noted in HPI and below Physical Exam Const General: cooperative and no acute distress Nutritional Appearance: well nourished Orientation/consciousness: patient oriented x3 Limitations: no limitations HEENT Head: Yes normocephalic and Yes atraumatic Ears: hearing grossly normal bilaterally Resp Effort & Inspection: normal respiratory effort, no audible wheezes, no cough and no respiratory distress Cardio Jugular venous distension: no JVD GI Inspection: Yes normal to inspection Skin Other: Warm, dry, no rash Neuro General: patient oriented x3 Extrem Other: Right upper arm anterior surface with a 4 cm soft tissue mass within the subcutaneous tissue, mobile, nontender to palpation with no overlying skin changes. General: Yes no clubbing, cyanosis or edema Shoulder/upper arm images: 2 1. Site of palpable mass Assessment & Plan Assessment & Plan (1) Lipoma of upper arm: Code(s): D17.20 - Benign lipomatous neoplasm of skin and subcutaneous tissue of unspecified limb Category: Medical Plan 29-year-old female patient returning for evaluation of a soft tissue mass located in the right upper arm. The lump has gradually increased in size and now measures approximately 4 cm in diameter. The patient has requested excision of this lesion. I reviewed the procedure, risks and alternatives in detail and she consents to excision of the right upper arm lipoma. This will be scheduled as a short-stay surgery. Coding Level of Care Code Est Pt Level 4 (16899) Diagnoses Lipoma of upper arm D17.20
[2024-12-02 09:44] VITALS: BP 119/75; PULSE 68; BMI 27.9
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
--- OUTSIDE RECORDS SUMMARY | 2024-12-02 10:02 | XMS_ITS | Clinical Summary ---
Author Organization [address] Address [address] [place] [phone] Care Team Providers Care Owner Oral Surgeon Name Role Phone Janki George Primary Care Provider [phone] Allergies No known active allergies Social History [...] patient's age to complete this topic Insurance [id number] MEDICAID [id number] MEDICAID MOTOR VEHICLE GENERIC [id number] MEDICAID MOTOR VEHICLE GENERIC Care Teams Owner Oral Surgeon Relationship Specialty Start Date End Date Janki George [address] [place], [place] [phone] PCP - General 08/06/20
== END 2024-12-02 09:48 | disposition home or self-care (01) ==
LOC: HO.HGS 09:27
PROVIDERS: PCP Internal Medicine; Visit Provider Surgery
DX: D17.20 Benign lipomatous neoplasm of skin and subcutaneous tissue of unspecified limb (principal)
CPT/HCPCS: 99214

== ENCOUNTER → 2024-12-02 09:22 | Outpatient (BNVA) | payer MEDICAID, SELFPAY | PROVIDERS: PCP Internal Medicine; Visit Provider Surgery | DX: D17.21 Benign lipomatous neoplasm of skin and subcutaneous tissue of right arm (principal) | CPT/HCPCS: 99212 ==

== ENCOUNTER 2024-12-08 10:14 | Outpatient (REF) | payer MEDICAID, SELFPAY ==
--- NOTE | ~2024-12-08 | XR_ITS ---
EXAMINATION: XR KNEE, LEFT CLINICAL INFORMATION: chroic L knee pain COMPARISON: None available. TECHNIQUE: Four views of the left knee. FINDINGS: Joint spaces are preserved. There are no abnormal soft tissue calcifications. There are no osteophytes. There is no joint effusion. XR/XR knee LT 4V IMPRESSION: Unremarkable left knee. Electronically signed by: Cheo Mina MD 12/08/2024 04:14 PM EDT
--- OUTSIDE RECORDS SUMMARY | 2024-12-08 11:28 | XMS_ITS | Clinical Summary ---
Author Organization [address] Address [address] [place] [address] Care Team Providers Care Lunchroom Supervisor Name Role Phone Janki George Primary Care Provider [phone] Allergies No known active allergies Social History [...] patient's age to complete this topic Insurance [id number] MEDICAID [id number] MEDICAID MOTOR VEHICLE GENERIC [id number] MEDICAID MOTOR VEHICLE GENERIC Care Teams Lunchroom Supervisor Relationship Specialty Start Date End Date Janki George [address] [place], [place] [phone] PCP - General 08/06/20
--- OUTSIDE RECORDS SUMMARY | 2024-12-08 11:28 | XMS_ITS | Clinical Summary ---
Author Organization [facility] Address [address] [place] [address] Care Team Providers Care Reprographics Technician Name Role Phone Unavailable Primary Care [...] me in 6 weeks. Bipolar II disorder ([facility]) 05/21/2022 Overview (12/11/2023): Last Assessment [...] out. Unfortunately when she went to pickling operator the new Rx for Vraylar was [...] counseling and will also speak with [facility] therapist to request referral. Since this provider will be retiring, patient will be referred to new [facility] psyhiatric provider. Patient is aware that appointments will be via televisit and that provider will not be an employee of [facility]. She gives permission to share PHI. Any issues or concerns to call [facility]. All her questions were answered and [...] Flu, Preservative Free 01/07/2023,2021,01/15/2017,05/11 HEP B, PED/ADOL (BZFIPGC-H-WUCH/RECOMBIVAX-PEDS) 05/04/1996,01/01/1996,1995 HPV 9 (Gardasil) 06/21/2019,03/30/2019 Hep B, Adult/Adol (FLZBEUI-W-WZYTI/RECOMBIVAX-ADULT) 05/23/2023 IPV (IPOL) 09/28/1999, 6,01/01/1996,10/29 MENINGOCOCCAL MPSV4 [...] Cervical Cancer Screening 08/26/2016 Pap Smear 08/26/2016 [id number] ( season) 2023 01/21/2022, 06/05/2021, 05/16/2021 Alcohol [...] Discontinued Vaginal Pap Discontinued Vulvoscopy Discontinued Insurance [place] MEDICAID [facility]
--- OUTSIDE RECORDS SUMMARY | 2024-12-08 11:28 | XMS_ITS | Encounter Summary ---
Author Organization [employer] Address [address] [place] [address] [address] [place] [address] Care Team Providers Care Pourer Name Role Phone Janki George MD Primary Care Provider + Reason for Visit * Reason Onset Date Comments Med Refill 12/11/2023 Encounter Details Date Type Department Care Team (Late st Contact Info) Description 12/11/2023 Refill [facility] [address] [place], [place] [phone] Bean Cagle FNP Social History Tobacco Use [...] documented as of this encounter Care Teams Pourer Relationship Specialty Start Date End Date Janki George MD [address] [place] [phone] PCP - General Family Medicine 01/30/16 Shy Barrera Proof TechnicianVp [employer] Planning 03/20/23 Ed Jarrett Contract ConsultantVp Ad Products And Planning 12/17/23 documented as of this encounter
[2024-12-08 13:12] LABS: Anion Gap 12 (12-20); Blood Urea Nitrogen 12 mg/dL (9-16); Calcium 9.2 mg/dL (8.4-10.2); Carbon Dioxide 24 mmol/L (22-29); Chloride 108 mmol/L (96-108); Cholesterol 167 mg/dL (<200); Estimated Glomerular Filt Rate > 60; HDL Cholesterol 51 mg/dL (>40); Potassium 4.2 mmol/L (3.3-5.1); Sodium 140 mmol/L (135-145); Triglycerides 71 mg/dL (<150)
[2024-12-08 13:39] LABS: Reflex LDLD? No
== END 2024-12-08 10:15 | disposition home or self-care (01) ==
LOC: HO.HHCL 10:14
PROVIDERS: Referring Provider Internal Medicine
DX: N93.8 Other specified abnormal uterine and vaginal bleeding (principal); G43.009 Migraine without aura, not intractable, without status migrainosus; G89.29 Other chronic pain; M25.562 Pain in left knee
CPT/HCPCS: 36415; 73564; 80048; 80061; 84443

== ENCOUNTER → 2024-12-08 15:55 | Outpatient (BNV) | payer MEDICAID, SELFPAY | PROVIDERS: Referring Provider Internal Medicine; Visit Provider Radiology Diagnostic Radiology | DX: M25.562 Pain in left knee (principal) | CPT/HCPCS: 73564 ==

== ENCOUNTER 2025-01-05 07:55 | Day surgery (SDC) | payer MEDICAID, SELFPAY ==
--- OUTSIDE RECORDS SUMMARY | 2024-12-03 06:49 | XMS_ITS | Clinical Summary ---
Author Organization [address] Address [address] [place] [address] Care Team Providers Care Returned Goods Receiving Clerk Name Role Phone Janki George Primary Care Provider [phone] Allergies No known active allergies Social History [...] patient's age to complete this topic Insurance [id number] MEDICAID [id number] MEDICAID MOTOR VEHICLE GENERIC [id number] MEDICAID MOTOR VEHICLE GENERIC Care Teams Returned Goods Receiving Clerk Relationship Specialty Start Date End Date Janki George [address] [place], [place] [phone] PCP - General 08/06/20
--- OUTSIDE RECORDS SUMMARY | 2024-12-03 06:49 | XMS_ITS | Clinical Summary ---
Author Organization [employer] Address [address] [facility] [address] [place] [address] Care Team Providers Care Ordnance Keeper Name Role Phone Janki George MD Primary [...] QUINN Advised to schedule a appointment with Phlebotomy Program Coordinator. Migraine without aura, not refractory 06/18/2022 Assessment [...] ran out. Unfortunately when she went to pickling solution maker the new Rx for Vraylar was informed [...] and will also speak with [facility] family therapist to request referral. Since this provider will be retiring, patient will be referred to new [facility] psyhiatric provider. Patient is aware that appointments will be via televisit and that provider will not be an employee of [facility]. She gives permission to share PHI. Any issues or concerns to call [facility]. All her questions were answered [...] ran out. Unfortunately when she went to pickling solution maker the new Rx for Vraylar was informed [...] ran out. Unfortunately when she went to pickling solution maker the new Rx for Vraylar was informed [...] ran out. Unfortunately when she went to pickling solution maker the new Rx for Vraylar was informed [...] Department Care Team Description 12/01/2024 Patient Outreach [facility] [address] [place] [address] Janki George MD Pre-visit Planning (SDOH was already completed) 11/30/2024 Orders Only [facility] External Provider, [facility] 11/16/2024 Travel 11/10/2024 Patient Outreach [facility] [address] [place] [address] Janki George MD Pre-visit Planning (SDOH was already completed) 10/25/2024 Telephone [facility] MED[facility] [address] [place] [phone] Janki George MD Karen recall 09/17/[address] [address] Janki George MD TP request 09/14/[address] [address] Janki George MD Change PCP 09/03/2024 9:45 AM EDT Office Visit [address] [address] Janki George MD DUB (dysfunctional uterine bleeding) (Primary Dx); Bipolar II disorder (CMS/HCC); Acute pain of left knee; Migraine without aura, not refractory; Tendinitis of right hand; Lipoma of right upper extremity 09/03/2024 Travel 09/02/[address] [address] Janki George MD chart prep 09/02/[address] [address] Janki George MD chart prep from Last [...] Description 12/08/2024 9:15 AM EDT Office Visit [facility] [address] [place] [address] Azul Whitfield, [facility] [address] [place] [address] Health Maintenance Due Date Last Done Comments [...] AM EDT Narrative 11/30/2024 10:51 AM EDT [place] [address] [address] Scan Report Signed Patient: Nichol Vallecillo MR#: [id number] : 1995 Acct:[id number] Age/Sex: 29 / F ADM Date: 11/30/24 Loc: HO.ED Attending Dr: Ordering Physician: Jeremy Mcelroy MD Date of Service: 11/30/24 Procedure(s): CT head/brain wo IV con Accession Number(s): [id number] cc: Jeremy Mcelroy MD; Azul Whitfield WET PROCESS TECHNICIAN Report Number: [id number]: Total DLP = 602.00 mGy-cm EXAMINATION: CT [...] 11/30/24 1048 DD/ 1032 TD/TT: 11/30/24 1045 Fruit Canner: Procedure Note Donotuseinterpreter, Image - 11/30/[address] [place] [address] [address] Scan Report Signed Patient: Nichol Vallecillo MMR#: [id number] : 1995Acct:[id number] Age/Sex: 29 FADM Date: 11/30/24 Loc: HO.ED Attending Dr: Ordering Physician: Jeremy Mcelroy MD Date of Service: 11/30/24 Procedure(s): CT head/brain wo IV con Accession Number(s): [id number] cc: Jeremy Mcelroy MD; Azul Whitfield WET PROCESS TECHNICIAN Report Number: [id number]: Total DLP = 602.00 mGy-cm EXAMINATION: CT [...] <Electronically signed by Andrei Monique MDin OV> 11/30/24 1048 DD/ 1032 TD/TT: 11/30/24 1045 Fruit Canner: [facility] External Provider IMG CT PROCEDURES Edited Result - Final * (ABNORMAL) CBC auto differential (11/30/2024 9:43 AM EDT) White Blood Count 6.3 4.8 - 10.8 X10*3/uL [facility] Red Blood Count 3.72(L) 4.20 - 5.50 X10*6/uL [facility] Hemoglobin 11.6(L) 12.0 - 16.0 g/dl [facility] Hematocrit 34.0(L) 37.0 - 47.0 % [facility] Mean Corpuscular Volume 91.4 80.0 - 98.0 fL [facility] Mean Corpuscular Hemoglobin 31.2 27.0 - 33.0 pg [facility] Mean Corpuscular HGB Conc 34.1 31.0 - 35.0 g/dl [facility] Red Cell Distribution Width 12.1 11.0 - 16.0 % [facility] Platelet Count 212 160 - 400 X10*3/uL [facility] Mean Platelet Volume 9.8 9.4 - 12.3 fL [facility] Neutrophils Percent Auto 61.9 45 - 73 % [facility] Imm Gran Pct Auto 0.3 0.0 - 0.4 % [facility] Lymphocytes Percent Auto 28.1 20 - 40 % [facility] Monocytes Percent Auto 7.2 2 - 11 % [facility] Eosinophils Percent Auto 2.2 0 - 4 % [facility] Basophils Percent Auto 0.3 0 - 2 % [facility] NRBC Pct Auto 0.0 0.0 - 0.2 /100WBC [facility] Neutrophils Absolute Auto 3.9 2.0 - 8.3 x10*3/uL [facility] Imm Gran Abs Auto 0.02 0.00 - 0.03 X10*3/uL [facility] Lymphocytes Absolute Auto 1.8 1.2 - 4.9 X10*3/uL [facility] Monocytes Absolute Auto 0.5 0.1 - 1.2 X10*3/uL [facility] Eosinophils Absolute Auto 0.1 0.0 - 0.4 X10*3/uL [facility] Basophils Absolute Auto 0.0 0.0 - 0.2 X10*3/uL [facility] NRBC Abs Auto 0.000 0.0 - 0.012 X10*3/uL [facility] 11/30/2024 9:43 AM EDT 11/30/2024 9:45 AM EDT us Generic External Data Provider LAB BLOOD ORDERAB LES Final Result [facility] [address] [place] [phone] * hCG, Total, Quantitative (11/30/2024 9:43 AM EDT) HCG Quantitative <2 mIU/mL [facility] Comment:Weeks post LMP Appr oximate hCG(Last Menstrual Period) Range (mIU/ml)3 - 4 weeks 9 - 1304 - 5 weeks 75 - 2,6005 - 6 weeks 850 - 20,8006 - 7 weeks 4000 - 100,2006 - 12 weeks 11,500 - 289,93229 - 16 weeks 18,300 - 137,55352 - 29 weeks (2nd trimester) 1,400 - 53,42683 - 41 weeks (3rd trimester) 940 - [...] Provider LAB BLOOD ORDERAB LES Final Result [facility] [address] [place] [address] [phone] * (ABNORMAL) Comprehensive Metabolic Panel (11/30/2024 9:43 AM EDT) Sodium 141 135 - 145 mmol/L [facility] Potassium 4.2 3.3 - 5.1 mmol/L [facility] Chloride 109(H) 96 - 108 mmol/L [facility] Carbon Dioxide 26 22 - 29 mmol/L [facility] Anion Gap 10(L) 12 - 20 [facility] Urea Nitrogen (BUN) 12 9 - 16 mg/dL [facility] Creatinine, Serum 0.69 0.5 - 1.4 mg/dL [facility] Creatinine Clr Calc Pharmacy 101.2 [facility] Comment:Provided height and weight: 152.4 cm,65 kg.eGFR (calculated from the MDRD study equation) and eCrCl(calculated from the Cockcroft-Gault equation) are based ondifferent parameters and may not yield comparable results.If eCrCl result is absurd, please check patient'sheight/weight. Estimated Glomerular Filt Rate >60 [facility] Comment:Chronic Kidney Disea se: Estimated GFR < 60 mL/min/1.99j0Rmhobz Kidney Disease: Estimated GFR < 15 mL/min/1.73m2 Glucose 92 60 - 115 mg/dL [facility] Calcium 8.7 8.4 - 10.2 mg/dL [facility] Bilirubin, Total 0.5 0.0 - 1.0 mg/dL [facility] Aspartate Amino Transferase 19 5 - 31 U/L [facility] Alanine Aminotransferase 19 0 - 31 U/L [facility] Total Protein 6.3(L) 6.5 - 8.0 g/dL [facility] Albumin Level 3.9 3.5 - 5.0 g/dL [facility] Alkaline Phosphatase 85 39 - 117 U/L [facility] 11/30/2024 9:43 AM EDT 11/30/2024 9:45 AM EDT us Generic External Data Provider LAB BLOOD ORDERAB LES Final Result Performing Organization Address [facility] Co de Phone Number [facility] [address] [place] [phone] * Hepatitis Panel, General (01/07/2023 10:20 AM EDT) Hepatitis A IgM Nonreactive Nonreactive [facility] Comment:IgM antibodies to WAY V not detected; does not exclude earlyacute or recovered HAV infection. ~Hepatitis B Surface Antibody NONREACTIVE Nonreactive [facility] Comment:Nonreactive: < 8.00 mIU/mL Hepatitis B Core Antibody Nonreactive Nonreactive [facility] Hepatitis C Antibody Nonreactive Nonreactive [facility] Comment:Antibodies to HCV no t detected; does not exclude early acuteHCV infection. Hepatitis B Surface Ag Negative Negative [facility] Blood 01/07/2023 10:2 0 AM EDT 01/07/2023 11:14 AM EDT us Janki George MD LAB BLOOD ORDERABLES Fin al Result Performing Organization Address [facility]/ZIP Co de Phone Number [facility] [address] [place] [phone] * Hm Pap Smear (02/20/2021) Pap Negative for intraephithelial lesion or malignancy Negative for intraephithelial lesion or malignancy, Other us Historical Provider HEALTH MAINTENANCE Final Result from Last 3 Months or Most Recently Relevant to Health Maintenance Insurance [facility] C3 Care Teams Ordnance Keeper Relationship Specialty Start Date End Date Janki George MD [address] [place] [phone] PCP - General Family Medicine 01/30/16 Shy Barrera Production Operations EngineerGuide Escort 03/20/23 Ed Jarrett Halal Meat PackerGuide Escort 12/17/23
--- OUTSIDE RECORDS SUMMARY | 2024-12-03 06:49 | XMS_ITS | Clinical Summary ---
Author Organization [facility] Address [address] [place] [address] Care Team Providers Care Lye Treater Name Role Phone Unavailable Primary Care Provider [...] me in 6 weeks. Bipolar II disorder ([facility] 05/21/2022 Overview (12/11/2023): Last Assessment & Plan: [...] ran out. Unfortunately when she went to excelsior picker the new Rx for Vraylar was [...] counseling and will also speak with [facility] family therapist to request referral. Since this provider will be retiring, patient will be referred to new [facility] psyhiatric provider. Patient is aware that appointments will be via televisit and that provider will not be an employee of [facility]. She gives permission to share PHI. Any issues or concerns to call [facility]. All her questions were answered and [...] Flu, Preservative Free 01/07/2023,2021,01/15/2017,05/11 HEP B, PED/ADOL ([id number]-G-WQMK/RECOMBIVAX-PEDS) 05/04/1996,01/01/1996,1995 HPV 9 (Gardasil) 06/21/2019,03/30/2019 Hep B, Adult/Adol (QVICKHN-Z-JXCSP/RECOMBIVAX-ADULT) 05/23/2023 IPV (IPOL) 09/28/1999, 6,01/01/1996,10/29 MENINGOCOCCAL MPSV4 [...] Cervical Cancer Screening 08/26/2016 Pap Smear 08/26/2016 [id number] ( season) 2023 01/21/2022, 06/05/2021, 05/16/2021 Alcohol [...] Discontinued Vaginal Pap Discontinued Vulvoscopy Discontinued Insurance [place] MEDICAID [facility]
[2024-12-13 13:06] VITALS: BMI 27.9
--- NOTE | 2024-12-14 11:01 | HO.ANESPROP2 ---
Documented by User: Pham Suarez NP 12/28/24 10:13 HPI - Anesthesia Eval Consult details Narrative: 29yo F for Right Excision Lipoma Upper Arm, 01/05/25 PMF Active Problems Active Problems: All Active Problems Lipoma of upper arm (Acute) Extensor tendon laceration of finger with open wound (Acute) Ventral hernia (Acute) COVID-19 (Acute) Past Medical History Medical History (Updated 12/13/24 @ 13:03 by Gloria Villanueva RN) Migraines Anemia Family History Family History Father No problems noted. Mother No problems noted. Maternal Grandfather Cancer of unknown origin Family history of problems with anesthesia: No Surgical History Surgical History (Updated 12/13/24 @ 13:02 by Gloria Villanueva RN) Hx of hand surgery History of hemorrhoidectomy (2015) History of ventral hernia repair (2017) History of umbilical hernia repair (11/17/13) History of delivery (02/2013) Hx of appendectomy History of Problems with Anesthesia: No Social History Social History Alcohol intake: never Patient Tobacco Use Status: Never used Tobacco Second Hand Smoke Exposure: No Have you been hit, kicked, punched, or otherwise hurt by someone within the past year? 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 Meds Allergies Allergy/AdvReac Type Severity Reaction Status Date / Time No Known Allergies Allergy Verified 12/02/24 09:43 Home Medications ?Medication ?Instructions ?Recorded ?Confirmed ?Last Taken ?Type hydroxyzine HCl 10 mg tablet 10 mg PO DAILY 01/03/23 12/13/24 Unknown History Exam Height,Weight and Vital Signs: Height 5 ft Weight 64.864 kg Pertinent Lab Results Pertinent Lab Results: Laboratory Tests 11/30/24 12/08/24 09:43 10:21 WBC 6.3 Hgb 11.6 L Hct 34.0 L Plt Count 212 Sodium 140 Potassium 4.2 Chloride 108 Carbon Dioxide 24 BUN 12 Creatinine 0.71 Assessment and Plan Assessment Anesthesia Assessment: Chart Reviewed Final Anesthetic Review Family History of Problems with Anesthesia: No History of Problems with Anesthesia: No Documented by User: Marcos Almaraz MD 01/05/25 10:10 [facility] Past Medical History Medical History (Updated 12/13/24 @ 13:03 by Gloria Villanueva, MONIKA) Migraines Anemia Functional capacity: independent ambulation Family History Family History Father No problems noted. Mother No problems noted. Maternal Grandfather Cancer of unknown origin Family history of problems with anesthesia: Yes Surgical History Surgical History (Updated 12/13/24 @ 13:02 by Gloria Villanueva RN) Hx of hand surgery History of hemorrhoidectomy (2015) History of ventral hernia repair (2017) History of umbilical hernia repair (11/17/13) History of delivery (02/2013) Hx of appendectomy History of Problems with Anesthesia: No Social History Social History Alcohol intake: never Patient Tobacco Use Status: Never used Tobacco Second Hand Smoke Exposure: No Have you been hit, kicked, punched, or otherwise hurt by someone within the past year? 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 Meds Allergies Allergy/AdvReac Type Severity Reaction Status Date / Time No Known Allergies Allergy Verified 12/02/24 09:43 Home Medications ?Medication ?Instructions ?Recorded ?Confirmed ?Last Taken ?Type hydroxyzine HCl 10 mg tablet 10 mg PO DAILY 01/03/23 12/13/24 Unknown History Exam Exam Date and Time: 01/05/2025 Airway Mallampati Class: II TM Dist: >3cm Loose/Missing/Broken Teeth: No and Upper Heart: normal Lungs: cta Other: normal Assessment and Plan Assessment Anesthesia Assessment: Anesthesia Plan Discussed Final Anesthetic Review Family History of Problems with Anesthesia: Yes History of Problems with Anesthesia: No NPO: Yes ASA Class: II Final Preanesthetic Review: No Changes in Pt Med Stat, Meds/Allgs Chart Reviewed, Consent Obtained/Reviewed and Anes Risks/Benef Reviewed Patient Risk: Low Procedure Risk: Low Anesthetic Plan Anesthetic Plan: GA (general) and MAC: Disposition: Standard PACU
[2025-01-05] VITALS (7 sets, daily range): BP systolic 107–114; BP diastolic 58–71; PULSE 52–84; RESP 12–18; TEMP 36.1–36.8; O2SAT 97–100; BMI 28.8
[2025-01-05 08:22] LABS: UPreg QC Valid YES
[2025-01-05] MEDS: Lactated Ringers 1,000 ML 100 ML IVCONT (08:25)
--- NOTE | 2025-01-05 09:42 | MHC.SHP ---
Pre-Procedural Eval Section A - 24 Hr Update-Section A only Date of Service: 01/05/25 The patient is an INPATIENT: No Changes since office visit: Yes Patient answered all questions; No Cold of Flu in the past 2 weeks, No New Medical Problems and No Changes in Medication The patient has been examined within 24 hours of the surgical procedure. The History & Physical has been completed within 30 days and I have reviewed it.: No Section B - Complete if H&P > 30 days Chief Complaint: Benign lipomatous neoplasm of skin Details of Present Illness: Patient denies any symptoms from the right arm lipoma Relevant Family History (Specify if Yes): No Relevant Social History: None Present Medications: see Short Stay Collaborative assessment Medical History: No relevant PMH History of Previous Operations: No relevant previous surgery Allergies: Allergies Allergy/AdvReac Type Severity Reaction Status Date / Time No Known Allergies Allergy Verified 12/02/24 09:43 Review of Systems Sugical H&P ROS: Negative: Constitution, Cardiovascular, Respiratory, Neurological, Psychiatric, Hem-Onc, Allergic/Immunologic, Gastrointestinal, Genitourinary, Musculoskeletal and Integumentary Exam Surgical H&P Exam: Normal: HEENT, Normal: Heart, Normal: Lungs, Normal: Abdomen and Normal: Skin and Significant Findings: Extremities (3 cm soft tissue mass right upper extremity) Plan Diagnosis/Plan: Unchanged I have reviewed the history and physical and performed a pertinent physical examination on my patient. No changes have occurred unless specified. Time Spent With Patient Time: Total time managing care of this patient today ____ minutes.
--- NOTE | 2025-01-05 11:07 | W.PM.OPN ---
Operative Note Operative Note Date of Service: 01/05/25 Narrative: Preoperative diagnosis: Lipoma right upper arm Postoperative diagnosis: Same Procedure: Excision of lipoma right upper arm Surgeon: Ranjith Celestin MD Radio Electronics Technician: Niraj Hernandez MS-3, ZENAIDA Sin Anesthesia: General LMA Indications for procedure: 29-year-old female patient presenting with a soft tissue mass in the right upper arm measuring approximately 3 cm in diameter, mobile within the subcutaneous tissue consistent with a lipoma. Operative findings: Multiloculated lipoma measuring approximately 3 cm with multiple pseudopods Specimen: Lipoma right upper arm Estimated blood loss: 2 mL Complications: None Procedure details: Patient was brought to the OR and placed in a supine position. After administering general anesthesia the patient's right arm was prepped with ChloraPrep and draped in a sterile fashion. A surgical time-out was called the consent confirmed. Patient received preoperative antibiotics and Venodyne boots were in place. Local anesthesia consisting of 0.5% Sensorcaine was infiltrated over the lipoma in a longitudinal fashion. Incision was then made through the center of the lipoma and carried out through subcutaneous tissue up to the lipoma. The lipoma was then dissected free from the surrounding subcutaneous tissue using a combination of sharp and blunt dissection. Hemostasis was assured using electrocautery. The lipoma was removed and sent to pathology for further examination. Wounds were then irrigated with saline solution and suctioned dry. Wounds were again checked for hemostasis. Deep fatty tissue was reapproximated using interrupted 3-0 Polysorb sutures. Dermis was reapproximated using interrupted 3-0 Polysorb sutures. Skin was then closed using a running subcuticular 4-0 Polysorb suture. Steri-Strips, 2 x 2 gauze and Tegaderm were then applied. The patient tolerated the procedure well. Sponge, instrument, and needle counts reported as correct. The patient was transferred to PACU in stable condition.
== END 2025-01-05 12:51 | disposition home or self-care (01) ==
PROVIDERS: Nurse Practitioner; Visit Provider Surgery
PROC: (CPT 24075; principal; 2025-01-05 10:00)
DX: D17.21 Benign lipomatous neoplasm of skin and subcutaneous tissue of right arm (principal); D64.9 Anemia, unspecified; G43.909 Migraine, unspecified, not intractable, without status migrainosus; Z79.899 Other long term (current) drug therapy; Z98.890 Other specified postprocedural states; Z56.0 Unemployment, unspecified
CPT/HCPCS: 24075; 81025; 88304; J0131; J0690; J1100; J1171; J2003; J2405; J2704; J3010

== ENCOUNTER → 2025-01-05 07:55 | Outpatient (BNV) | payer MEDICAID, SELFPAY | PROVIDERS: Visit Provider Surgery | DX: D17.21 Benign lipomatous neoplasm of skin and subcutaneous tissue of right arm (principal) | CPT/HCPCS: 25071 ==

== ENCOUNTER 2025-01-13 10:26 | Outpatient (REF) | payer MEDICAID, SELFPAY ==
--- OUTSIDE RECORDS SUMMARY | 2025-01-13 09:30 | XMS_ITS | Encounter Summary ---
Author Organization [employer] Address [address] [place] [address] 7 [place] [address] Care Team Providers Care Terrazzo Polisher Helper Name Role Phone Azul Whitfield CNP Primary Care Provider [phone] Reason for Visit * Reason Comments Gynecologic Exam Encounter Details Date Type Department Care Team (Latest Contact Info) Description 01/13/2025 9:30 AM EDT Procedure Visit [facility] [address] [place], [place] [id number] Azul Whitfield CNP [address] [place], [place] [phone] Encounter for Papanicolaou smear for cervical cancer screening (Primary Dx); Vaginal discharge; Irregular periods; Cyclical mastalgia Social History Tobacco Use Types Packs/Day Years Used Date Smoking Tobacco: Never Passive Smoke Exposure: Never Smokeless Tobacco: Never Alcohol Use Standard Drinks/Week Comments Never 0 (1 standard drink = 0.6 oz pur e alcohol) Depression Answer Date Recorded Patient Health Questionnaire-9 Score 6 12/08/2024 Patient Health Questionnaire-9 Score 6 12/08/2024 Last PHQ-9: Questionnaire Data Not on file 0 12/08/2024 Housing Stability Answer Date Recorded What is your housing situation today? I have nate sing [address] you li [...] Answer Date Recorded Patient Health Questionnaire-2 Score 0 12/08/2024 Internet Access Answer Date Recorded Internet Access Q1 Yes 2024 Internet Access Q2 Not on file 2024 Comments No Sex and Gender Information Value Date Recorded Sex Assigned at Female 02/18/2022 10:21 AM EDT Legal Sex Female 10:21 AM EDT Gender Identity Female 02/18/2022 10:21 AM EDT Sexual Orientation Straight 02/18/2022 10 :21 AM EDT documented as of this encounter Last Filed Vital Signs Vital Sign Reading Time Taken Comments Blood Pressure 114/76 01/13/2025 9:35 AM EDT Pulse 82 01/13/2025 9:35 AM EDT Temperature 36.3 C (97.3 F) 01/13/2025 9:35 AM EDT Respiratory Rate 16 01/13/2025 9:35 AM EDT Oxygen Saturation 99% 01/13/2025 9:35 AM EDT Inhaled Oxygen Concentration - - Weight 64.9 kg (143 lb) 01/13/2025 9:35 AM EDT Height 154 cm (5' 0.63 ) 01/13/2025 9:35 AM EDT Body Mass Index 27.35 01/13/2025 9:35 AM EDT documented in this encounter Progress Notes * Azul Whitfield CNP - 01/13/2025 9:30 AM EDT Subjective Patient ID: Nichol Harry is a 29 y.o. female who presents for pap smear. HPI Today pt reports some mild pain in LLQ of Left breast that comes and goes, she denies feeling a mass. She also reports increased vaginal discharge for past 2 weeks, she denies odor, vaginal discomfort,or vaginal bleeding. Denies pain or bleeding with sex. Last pap: no hx of abnl paps, last one completed 02/2021 NILM HPV neg LMP: 11/05/2024 Reports that periods are irregular when she is not using contraception, she previously used combi patch for period regulation, stopped taking 6 months ago. She reports that periods can come once every other month, sometimes every 2 months. Has monogamous AMAB partner. Feels safe in relationship. She is seeking , taking daily PNV. Review of Systems Objective Vitals: 01/13/25 0935 BP: 114/76 Pulse: 82 Resp: 16 Temp: 97.3 ??F (36.3 ??C) SpO2: 99% Physical Exam Constitutional: Appearance: Normal appearance. HENT: Head: Normocephalic and atraumatic. Chest: Chest wall: No mass, lacerations, deformity, swelling, tenderness, crepitus or edema. Breasts: Right: Normal. No swelling, bleeding, inverted nipple, mass, nipple discharge, skin change or tenderness. Left: Tenderness present. No swelling, bleeding, inverted nipple, mass, nipple discharge or skin change. Comments: Tenderness in LLQ of L breast about 4-5 o clock from areola. No mass palpated. Pain is diffuse Genitourinary: General: Normal vulva. Labia: Right: No rash, tenderness, lesion or injury. Left: No rash, tenderness, lesion or injury. Urethra: No prolapse, urethral pain, urethral swelling or urethral lesion. Vagina: Normal. Cervix: Normal. No cervical motion tenderness, discharge, friability, lesion, erythema, cervical bleeding or eversion. Uterus: Normal. Not deviated, not enlarged, not fixed, not tender and no uterine prolapse. Adnexa: Right adnexa normal and left adnexa normal. Right: No mass, tenderness or fullness. Left: No mass, tenderness or fullness. Rectum: Normal. Lymphadenopathy: Upper Body: Right upper body: No supraclavicular, axillary or pectoral adenopathy. Left upper body: No supraclavicular, axillary or pectoral adenopathy. Neurological: General: No focal deficit present. Mental Status: She is alert and oriented to person, place, and time. Psychiatric: Mood and Affect: Mood normal. Behavior: Behavior normal. Assessment/Plan Problem List Items Addressed This Visit None Visit Diagnoses Encounter for Papanicolaou smear for cervical cancer screening - Primary Relevant Orders Pap Smear Pap smear obtained today, benign bi manual exam If normal, repeat in 3 years 12/2027 Will f/u with results Vaginal discharge Relevant Orders Bacterial Vaginosis Panel Obtained BV swab today d/t increased discharge Will treat as appropriate Irregular periods Relevant Orders FSH Estradiol Prolactin Lab Results Component Value Date TSH 2.52 12/08/2024 Pt recent labs including thyroid function normal. Pt was spotting on exam today and could be starting her cycle. Today we discussed tracking ovulation with OPKs, instructions discussed and patient handout given. She will try to monitor ovulation for next 3 months. I also ordered hormonal labs to r/o hyperprolactinemia and primary ovarian insufficiency. Future consideration for pelvic US to r/o structural cause We will f/u in 3 months. 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 No mass palpated on exam. Advised conservative treatment with heat/cold therapy analgesics for pain relief. documented in this encounter Plan of Treatment Scheduled Orders Name Type Priority Associated Diagnoses Orde r Schedule Pap Smear Pathology and Cytology Routine Encounter for Papanicolaou smear for cervical cancer screening Ordered: 01/13/2025 Bacterial Vaginosis Panel Microbiology Routine Vaginal discharge Ordered: 01/13/2025 FSH Lab Routine Irregular periods Expected: 01/13/2025, Expires: 01/13/2026 Estradiol Lab Routine Irregular periods Expected: 01/13/2025, Expires: 01/13/2026 Prolactin Lab Routine Irregular periods Expected: 01/13/2025 (Approximate), Expires: 01/13/2026 STI testing add on (NG, CT, Trich) Pathology and Cytology Routine Encounter for Papanicolaou smear for cervical cancer screening Ordered: 01/13/2025 documented as of this encounter Visit Diagnoses Diagnosis Encounter for Papanicolaou smear for cervical cancer screening- Primary Vaginal discharge Leukorrhea, not specified as infective Irregular periods Cyclical mastalgia documented in this encounter Additional Health Concerns Assessment Noted Time PHQ-9 Depression Total Score: 6 12/09/19 10:09 AM EDT documented as of this encounter Care Teams Terrazzo Polisher Helper Relationship Specialty Start Date End Date Azul Whitfield CNP [address] [place] [id number] PCP - General Family Medicine 01/05/25 Shy Barrera Egg CraterObject Oriented Programmer 03/20/23 Ed Jarrett Coach BuilderObject Oriented Programmer 12/17/23 documented as of this encounter
--- OUTSIDE RECORDS SUMMARY | 2025-01-13 13:07 | XMS_ITS | Clinical Summary ---
Author Organization [address] Address [address] [place] [address] Care Team Providers Care Financial Aid Name Role Phone Janki George Primary Care Provider [phone] Allergies No known active allergies Social History [...] 2015 Cervical cancer screening 08/26/2016 Influenza vaccine 11/19/2024 Covid-19 vaccine series (2023- season) 2024 RSV Immunization (1 - 1-dose 75+ series) 08/26/2070 Meningococcal B Vaccine Aged Out No l onger eligible based on patient's age to complete this topic Meningococcal Vaccine Aged Out No mehnaz socorro eligible based on patient's age to complete this topic Pneumococcal Vaccine (2 - 49 years) Aged Out No longer eligible based on patient's age to complete this topic [id number] [facility]ICAID [facility] [id number] MEDICAID [id number] MEDICAID MOTOR VEHICLE GENERIC [id number] MEDICAID MOTOR VEHICLE GENERIC Care Teams Financial Aid Relationship Specialty Start Date End Date Janki George [address] [place] [phone] PCP - General 08/06/20
--- OUTSIDE RECORDS SUMMARY | 2025-01-13 13:07 | XMS_ITS | Encounter Summary ---
Author Organization [employer] Address [address] [facility] [address] [place] [address] Care Team Providers Care Batterboard Setter Name Role Phone Azul Whitfield CLAUDETTE Primary Care Provider [phone] Encounter Details Date Type Department Care Team (Latest Contact Info) Description 01/13/2025 Travel Social History Tobacco Use Types Packs/Day [...] documented as of this encounter Care Teams Batterboard Setter Relationship Specialty Start Date End Date Azul Whitfield CNP [address] [place] [id number] PCP - General Family Medicine 01/05/25 Shy Barrera Cold Roll OperatorDoor Liner 03/20/23 Ed Jarrett Cemetery LaborerDoor Liner 12/17/23 documented as of this encounter
--- OUTSIDE RECORDS SUMMARY | 2025-01-13 13:08 | XMS_ITS | Encounter Summary ---
Author Organization [employer] Address [address] [facility] [address] [place] [address] Care Team Providers Care Extracorporeal Circulation Specialist Name Role Phone Janki George MD Primary Care Provider + Azul Whitfield CNP Primary Care Provider [phone] Reason for Visit * Reason Onset Date Comments Med Refill 04/30/2023 Encounter Details Date Type Department Care Team (Late st Contact Info) Description 04/30/2023 Refill [facility] [address] [place] [address] Myron Bustos MD [address] [place] [address] Laceration of left hand, foreign body presence [...] Time PHQ-9 Depression Total Score: 8 02/11/20 11:01 AM EDT documented as of this encounter Care Teams Extracorporeal Circulation Specialist Relationship Specialty Start Date End Date Janki George MD [address] [place] [id number] PCP - General Family Medicine 01/30/16 01/04/25 Azul Whitfield CNP [address] [place] [address] PCP - General Family Medicine 01/05/25 Shy Barrera Strapper OperatorHockey Scout 03/20/23 Ed Jarrett Scutcher TenderHockey Scout 12/17/23 documented as of this encounter
--- OUTSIDE RECORDS SUMMARY | 2025-01-13 13:08 | XMS_ITS | Clinical Summary ---
Author Organization [facility] Address [address] [place] [address] Care Team Providers Care Science Consultant Name Role Phone Unavailable Primary Care Provider [...] me in 6 weeks. Bipolar II disorder ([facility]) 05/21/2022 Overview (12/11/2023): Last Assessment [...] ran out. Unfortunately when she went to pharmacy picking tech the new Rx for Vraylar was informed [...] referred counseling and will also speak with [facility] family therapist to request referral. Since this provider will be retiring, patient will be referred to new [facility] psyhiatric provider. Patient is aware that appointments will be via televisit and that provider will not be an employee of [facility]. She gives permission to share PHI. Any issues or concerns to call [facility]. All her questions were answered and I [...] Flu, Preservative Free 01/07/2023,2021,01/15/2017,05/11 HEP B, PED/ADOL (CSKDOVT-K-WHPX/RECOMBIVAX-PEDS) 05/04/1996,01/01/1996,1995 HPV 9 (Gardasil) 06/21/2019,03/30/2019 Hep B, Adult/Adol (PFIURBN-I-VKEBM/RECOMBIVAX-ADULT) 05/23/2023 IPV (IPOL) 09/28/1999, 6,01/01/1996,10/29 MENINGOCOCCAL MPSV4 [...] C Screening 1995 Pap + HPV 1995 Tobacco Screening 1995 HIV Screening 08/26/2010 Relationship Safety Screening/Counseling 08/26/2010 Hypertension Screening (#1) 08/26/2013 Cervical Cancer Screening 08/26/2016 Pap Smear 08/26/2016 Imm-HPV (3 - 3-dose series) 09/29/2019 06/21/2019, 1 05/31/2018 Alcohol and Drug Screen 04/21/2024 Depression Annual Screen 04/21/2024 [id number] ( season) 2024 01/21/2022, 06/05/2021, 05/16/2021 Imm-Influenza (#1) 2024 01/07/2023, 0 05/16/2021, 03/30/2019, Additional history exists Imm-DTaP/Tdap/Td (8 - Td or Tdap) 01/01/2033 01/01/2023, 04/11/2017, 09/14/2006, Additional history exists Imm-Hepatitis B Completed 05/23/2023, 04/21, 01/01/1996, Additional history exists Cervical Ablation/Cold-Knife Conization Discontinued Cervical Cryotherapy Discontinued Colposcopy Discontinued Endometrial Biopsy Discontinued Excision/Leep Discontinued HPV Genotyping Discontinued Vaginal Pap Discontinued Vulvoscopy Discontinued Insurance [place] MEDICAID [facility]
--- OUTSIDE RECORDS SUMMARY | 2025-01-13 13:08 | XMS_ITS | Encounter Summary ---
Author Organization [employer] Address [address] [place] [address] [address] [place] [address] Care Team Providers Care Microscopist Name Role Phone Janki George MD Primary Care Provider + Azul Whitfield CNP Primary Care Provider [phone] Reason for Visit * Reason Onset Date Comments Med Refill 12/11/2023 Encounter Details Date Type Department Care Team (Late st Contact Info) Description 12/11/2023 Refill [facility] [address] [place] [address] Bean Cagle FNP Social History Tobacco Use [...] documented as of this encounter Care Teams Microscopist Relationship Specialty Start Date End Date Janki George MD [address] [place] [id number] PCP - General Family Medicine 01/30/16 01/04/25 Azul Whitfield CNP [address] [place] [address] PCP - General Family Medicine 01/05/25 Shy Barrera Joiners SupervisorLinter Tender 03/20/23 Ed Jarrett Marine Electrician ApprenticeLinter Tender 12/17/23 documented as of this encounter
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
--- OUTSIDE RECORDS SUMMARY | 2025-01-13 13:08 | XMS_ITS | Encounter Summary ---
Author Organization [employer] Address [address] [facility] [address] [place] [address] Care Team Providers Care Project Production Engineer Name Role Phone Azul Whitfield [place] Primary Care Provider [phone] Encounter Details Date Type Department Care Team (Latest Contact Info) Description 01/10/2025 Travel Social History Tobacco Use Types Packs/Day [...] documented as of this encounter Care Teams Project Production Engineer Relationship Specialty Start Date End Date Azul Whitfield CNP [address] [place] [phone] PCP - General Family Medicine 01/05/25 Shy Barrera Parking ManagerPost Anesthesia Room Nurse 03/20/23 Ed Jarrett Seasonal Greenery BundlerPost Anesthesia Room Nurse 12/17/23 documented as of this encounter
--- OUTSIDE RECORDS SUMMARY | 2025-01-13 13:08 | XMS_ITS | Encounter Summary ---
Author Organization [employer] Address [address] [place] [address] 7 [place] [address] Care Team Providers Care Frame Runner Name Role Phone Janki George MD Primary Care Provider + Azul Whitfield CNP Primary Care Provider +1 [phone] Reason for Visit * Reason Onset Date Comments Change PCP 09/14/2024 Encounter Details Date Type Department Care Team ([facility] st Contact Info) Description 09/14/2024 Telephone [facility] MEDICINE [address] [place], [place] [phone] Janki George MD [address] [place], [place] [phone] Change PCP Social History Tobacco Use Types Packs/Day Years [...] encounter Miscellaneous Notes * Telephone Encounter - Liam York - 09/14/2024 9:56 AM EDT Tc from pt requesting to change pcp stating she feels pcp is 'always in a benitez' and thus she does not feel seen and that her needs are not being met. Please contact pt at [phone]. documented in this encounter Plan of Treatment Not on file documented as of this encounter Visit Diagnoses Not on filedocumented in this encounter Additional Health Concerns Assessment Noted Time PHQ-9 Depression Total Score: 8 10/27/19 24 11:16 AM EDT documented as of this encounter Care Teams Frame Runner Relationship Specialty Start Date End Date Janki George MD [address] [place] [address] PCP - General Family Medicine 01/30/16 01/04/25 Azul Whitfield CNP [address] [place] [address] PCP - General Family Medicine 01/05/25 Shy Barrera Hog KillerNeck Band Setter 03/20/[address] MonitorNeck Band Setter 12/17/23 documented as of this encounter
--- OUTSIDE RECORDS SUMMARY | 2025-01-13 13:09 | XMS_ITS | Encounter Summary ---
Author Organization [employer] Address [address] [place] [address] 7 [place] [address] Care Team Providers Care Forestry Patrolman Name Role Phone Janki George MD Primary Care Provider + Azul Whitfield CNP Primary Care Provider [phone] Reason for Visit * Reason Onset Date Comments Triage 08/22/2022 Encounter Details Date Type Department Care Team ([facility] st Contact Info) Description 08/22/2022 Telephone [facility] MEDICINE [address] [place], [place] [phone] Janki George MD [address] [place], [place] [phone] Triage Social History Tobacco Use Types Packs/Day [...] documented as of this encounter Care Teams Forestry Patrolman Relationship Specialty Start Date End Date Janki George MD [address] [place] [address] PCP - General Family Medicine 01/30/16 01/04/25 Azul Whitfield CNP [address] [place] [address] PCP - General Family Medicine 01/05/25 Shy Barrera Accounts Payable ProfessionalLabel Sewer 03/20/23 Ed Jarrett Twisting Frame FixerLabel Sewer 12/17/23 documented as of this encounter
--- OUTSIDE RECORDS SUMMARY | 2025-01-13 13:09 | XMS_ITS | Encounter Summary ---
Author Organization [employer] Address [address] [place] [address] 7t [place] [address] Care Team Providers Care Critical Care Nurse Practitioner Name Role Phone Janki George MD Primary Care Provider + Azul Whitfield CNP Primary Care Provider [phone] Encounter Details Date Type Department Care Team ([facility] Contact Info) Description 08/13/2022 Orders Only [facility] MED & PEDS [address] [place], [place] [phone] Blanca Brown LPN Social History Tobacco Use [...] documented as of this encounter Care Teams Critical Care Nurse Practitioner Relationship Specialty Start Date End Date Janki George MD [address] [place] [address] PCP - General Family Medicine 01/30/16 01/04/25 Azul Whitfield CNP [address] [place] [address] [place] [id number] PCP - General Family Medicine 01/05/25 Shy Barrera Agate SetterApplications Scientist 03/20/23 Ed Jarrett Drawing HandApplications Scientist 12/17/23 documented as of this encounter
[2025-01-13 15:32] LABS: Bacterial Vaginosis PCR POSITIVE (Negative); Candida Group PCR DETECTED (Not Detect); Candida glab krusei PCR NOT DETECTED (Not Detect); Trichomonas vaginalis PCR NOT DETECTED (Not Detect)
[2025-01-14 05:19] LABS: Follicle Stimulating Hormone 9.3 mIU/mL
[2025-01-19 03:24] LABS: Estradiol Ultra Sensitive 45 pg/mL
== END 2025-01-13 10:27 | disposition home or self-care (01) ==
LOC: HO.CHCLDS 10:26
DX: N89.8 Other specified noninflammatory disorders of vagina (principal); N92.6 Irregular menstruation, unspecified
CPT/HCPCS: 81515; 82670; 83001; 84146

== ENCOUNTER 2025-01-13 14:27 | Outpatient (REF) | payer MEDICAID, SELFPAY ==
[2025-01-15 17:48] LABS: C. trachomatis RNA TMA NOT DETECTED (NOT DETECTED); N. gonorrhoeae RNA TMA NOT DETECTED (NOT DETECTED)
[2025-01-16 20:39] LABS: Trichomonas (NAAT) NOT DETECTED (NOT DETECTED)
== END 2025-01-13 14:28 | disposition home or self-care (01) ==
LOC: HO.LNP 14:27
DX: Z12.4 Encounter for screening for malignant neoplasm of cervix (principal); Z11.3 Encounter for screening for infections with a predominantly sexual mode of transmission; Z11.8 Encounter for screening for other infectious and parasitic diseases
CPT/HCPCS: 87491; 87591; 87661; 88175

== ENCOUNTER 2025-02-22 11:42 | Outpatient (REF) | payer MEDICAID, SELFPAY ==
--- NOTE | 2025-02-22 11:44 | EMG_ITS ---
Chief complaint:? G56.03 Carpal tunnel syndrome, bilateral upper limbs Reason for referral: Evaluate for Carpal Tunnel Syndrome Referred by:? Azul Whitfield NP Procedure done:? Bilateral upper extremities NCS/EMG [place] 27[address] x2 Bilateral median and ulnar motor studies were performed. Bilateral median and ulnar mixed sensory studies were performed. Bilateral median and lateral antecubital brachial sensory and radial sensory studies were performed. EMG needle examination was performed. Findings: Median study did not reveal any significant abnormality. Left ulnar motor conduction velocity was moderately slowed across elbow. Otherwise no significant abnormality noted. Impression: Mild left ulnar neuropathy across elbow. Otherwise no significant abnormality noted. MTDD
--- OUTSIDE RECORDS SUMMARY | 2025-02-22 14:26 | XMS_ITS | Encounter Summary ---
Author Organization [employer] Address [address] [place] [address] 7 [place] [address] Care Team Providers Care Software Packaging Engineer Name Role Phone Azul Whitfield CNP Primary Care Provider [phone] Reason for Visit * Reason Onset Date Comments Referral 01/13/2025 Encounter Details Date Type Department Care Team ([facility] st Contact Info) Description 01/13/2025 Results Follow-Up [facility] MED & PEDS [address] [place], [place] [phone] Azul Whitfield CNP [address] [place] [address] Bacterial Vaginosis Panel, Pap Smear, FSH, Additional followed-up results: 3 Social History Tobacco Use Types Packs/Day Years [...] encounter Miscellaneous Notes * Telephone Encounter - Ronald Muniz - 02/21/2025 4:11 PM EST Tc from pt report had a pap done in December were was blood in the result . 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 Pt disclosed that she discussed about concerns she has with her menstrual cycle documented in this encounter Plan of Treatment Scheduled Orders Name Type Priority Associated Diagnoses Orde r Schedule FSH Lab Routine Irregular periods Expected: 02/08/2025, Expires: 01/25/2026 Estradiol Lab Routine Irregular periods Expected: 02/08/2025, Expires: 01/25/2026 documented as of this encounter Visit Diagnoses Diagnosis Irregular periods- Primary documented in this encounter Additional Health Concerns Assessment Noted Time PHQ-9 Depression Total Score: 6 12/09/19 25 10:09 AM EDT documented as of this encounter Care Teams Software Packaging Engineer Relationship Specialty Start Date End Date Azul Whitfield CNP [address] [place] [address] PCP - General Family Medicine 01/05/25 Shy Barrera Unemployment Benefits Claims TakerTariff Clerk 03/20/23 Ed Jarrett Or ManagerTariff Clerk 12/17/23 documented as of this encounter
--- OUTSIDE RECORDS SUMMARY | 2025-02-22 14:26 | XMS_ITS | Encounter Summary ---
Author Organization [employer] Address [address] [place] [address] 7t [place] [address] Care Team Providers Care Manager Sas Name Role Phone Janki George MD Primary Care Provider + Azul Whitfield CNP Primary Care Provider [phone] Encounter Details Date Type Department Care Team ([facility] Contact Info) Description 08/13/2022 Orders Only [facility] MED [facility]EDS [address] [place], [place] [phone] Blanca Brown LPN Social History Tobacco Use [...] documented as of this encounter Care Teams Manager Sas Relationship Specialty Start Date End Date Janki George MD [address] [place] [address] PCP - General Family Medicine 01/30/16 01/04/25 Azul Whitfield CNP [address] [place] [address] [place] [address] PCP - General Family Medicine 01/05/25 Shy Barrera Floor TraderChip Unloader 03/20/23 Ed Jarrett Batch TruckerChip Unloader 12/17/23 documented as of this encounter
--- OUTSIDE RECORDS SUMMARY | 2025-02-22 14:26 | XMS_ITS | Encounter Summary ---
Author Organization [employer] Address [address] [facility] 7t [place] [address] Care Team Providers Care Commercial Leasing Manager Name Role Phone Janki George MD Primary Care Provider + Azul Whitfield CNP Primary Care Provider [phone] Reason for Visit * Reason Onset Date Comments Med Refill 04/30/2023 Encounter Details Date Type Department Care Team (Late st Contact Info) Description 04/30/2023 Refill [facility] [address] [place] [address] Myron Bustos MD 230 [place] [address] Laceration of left hand, foreign body presence [...] documented as of this encounter Care Teams Commercial Leasing Manager Relationship Specialty Start Date End Date Janki George MD [address] [place] [address] PCP - General Family Medicine 01/30/16 01/04/25 Azul Whitfield CNP [address] [place] [address] PCP - General Family Medicine 01/05/25 Shy Barrera Diaper FolderAssistant Product Manager 03/20/[address]er OperatorAssistant Product Manager 12/17/23 documented as of this encounter
--- OUTSIDE RECORDS SUMMARY | 2025-02-22 14:26 | XMS_ITS | Encounter Summary ---
Author Organization [employer] Address [address] [place] [address] 7 [place] [address] Care Team Providers Care Show Card Letterer Name Role Phone Janki George MD Primary Care Provider + Azul Whitfield CNP Primary Care Provider [phone] Reason for Visit * Reason Onset Date Comments Triage 08/22/2022 Encounter Details Date Type Department Care Team ([facility] st Contact Info) Description 08/22/2022 Telephone [facility] MEDICINE [address] [place], [place] [phone] Janki George MD [address] [place], [place] [phone] Triage Social History Tobacco Use Types Packs/Day [...] documented as of this encounter Care Teams Show Card Letterer Relationship Specialty Start Date End Date Janki George MD [address] [place] [address] PCP - General Family Medicine 01/30/16 01/04/25 Azul Whitfield CNP [address] [place] [address] PCP - General Family Medicine 01/05/25 Shy Barrera Landscaper HelperPulmonary Specialist 03/20/23 Ed Jarrett Director Of AudiologyPulmonary Specialist 12/17/23 documented as of this encounter
--- OUTSIDE RECORDS SUMMARY | 2025-02-22 14:26 | XMS_ITS | Encounter Summary ---
Author Organization [employer] Address [address] [place] [address] 7t [place] [address] Care Team Providers Care Switch Coupler Name Role Phone Janki George MD Primary Care Provider + Azul Whitfield CNP Primary Care Provider [phone] Reason for Visit * Reason Onset Date Comments Med Refill 12/11/2023 Encounter Details Date Type Department Care Team (Late st Contact Info) Description 12/11/2023 Refill [facility] MEDICINE [address] [place] [address] Bean Cagle FNP Social History Tobacco Use [...] documented as of this encounter Care Teams Switch Coupler Relationship Specialty Start Date End Date Janki George MD [address] [place] [address] PCP - General Family Medicine 01/30/16 01/04/25 Azul Whitfield CNP [address] [place] [address] PCP - General Family Medicine 01/05/25 Shy Barrera Mold SprayerGlazier Metal Furniture 03/20/23 Ed Jarrett Mobile NurseGlazier Metal Furniture 12/17/23 documented as of this encounter
--- OUTSIDE RECORDS SUMMARY | 2025-02-22 14:26 | XMS_ITS | Clinical Summary ---
Author Organization [facility] Address [address] [place] [address] Care Team Providers Care Sorter Upholstery Parts Name Role Phone Unavailable Primary Care Provider [...] cariprazine 3 mg capIndications: Bipolar II disorder Take 1 Capsule by mouth daily. for [...] me in 6 weeks. Bipolar II disorder 05/21/2022 Overview (12/11/2023): Last Assessment & Plan: [...] ran out. Unfortunately when she went to peanut picker the new Rx for Vraylar was [...] referred counseling and will also speak with [facility] family therapist to request referral. Since this provider will be retiring, patient will be referred to new [facility] psyhiatric provider. Patient is aware that appointments will be via televisit and that provider will not be an employee of [facility]. She gives permission to share PHI. Any issues or concerns to call [facility]. All her questions were answered and [...] Flu, Preservative Free 01/07/2023,2021,01/15/2017,05/11 HEP B, PED/ADOL ([id number]/RECOMBIVAX-PEDS) 05/04/1996,01/01/1996,1995 HPV 9 (Gardasil) 06/21/2019,03/30/2019 Hep B, Adult/Adol ([id number]/RECOMBIVAX-ADULT) 05/23/2023 IPV (IPOL) 09/28/1999, 6,01/01/1996,10/29 MENINGOCOCCAL MPSV4 [...] Done Comments Anxiety Screening 1995 HPV Screening (self-collect) 1995 HPV Screening 1995 Hepatitis C Screening 1995 Pap + HPV 1995 Tobacco Screening 1995 HIV Screening 08/26/2010 Relationship Safety Screening/Counseling 08/26/2010 Hypertension Screening (#1) 08/26/2013 Cervical Cancer Screening 08/26/2016 Pap Smear 08/26/2016 Imm-HPV (3 - 3-dose series) 09/29/2019 06/21/2019, 1 05/31/2018 Alcohol and Drug Screen 04/21/2024 Depression Annual Screen 04/21/2024 [id number]-11 ( season) 2024 01/21/2022, 06/05/2021, 05/16/2021 Imm-Influenza (#1) 2024 01/07/2023, 0 05/16/2021, 03/30/2019, Additional history exists Imm-DTaP/Tdap/Td (8 - Td or Tdap) 01/01/2033 01/01/2023, 04/11/2017, 09/14/2006, Additional history exists Imm-Hepatitis B Completed 05/23/2023, 04/21, 01/01/1996, Additional history exists Cervical Ablation/Cold-Knife Conization Discontinued Cervical Cryotherapy Discontinued Colposcopy Discontinued Excision/Leep Discontinued HPV Genotyping Discontinued Vaginal Pap Discontinued Vulvoscopy Discontinued Insurance [place] MEDICAID [facility]
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
--- OUTSIDE RECORDS SUMMARY | 2025-02-22 14:26 | XMS_ITS | Encounter Summary ---
Author Organization [employer] Address [address] [place] [address] [address] [place] [address] Care Team Providers Care Certified Juvenile Probation Officer Name Role Phone Janki George MD Primary Care Provider + Azul Whitfield CNP Primary Care Provider [phone] Reason for Visit * Reason Onset Date Comments Change PCP 09/14/2024 Encounter Details Date Type Department Care Team ([facility] st Contact Info) Description 09/14/2024 Telephone [facility] [address] [place], [place] [phone] Janki George MD [address] [place], [place] [phone] Change PCP Social History Tobacco Use Types [...] not being met. Please contact pt at [phone]. documented in this encounter Plan of Treatment Not on file documented as of this encounter Visit Diagnoses Not on filedocumented in this encounter Additional Health Concerns Assessment Noted Time PHQ-9 Depression Total Score: 8 10/27/19 24 11:16 AM EDT documented as of this encounter Care Teams Certified Juvenile Probation Officer Relationship Specialty Start Date End Date Janki George MD [address] [place] [id number] PCP - General Family Medicine 01/30/16 01/04/25 Azul Whitfield CNP [address] [place] [address] PCP - General Family Medicine 01/05/25 Shy Barrera Development AdministratorMedical Art Therapist 03/20/23 Ed Jarrett Plastic Surgery SpecialistMedical Art Therapist 12/17/23 documented as of this encounter
--- OUTSIDE RECORDS SUMMARY | 2025-02-22 14:26 | XMS_ITS | Clinical Summary ---
Author Organization [address] Address [address] [place] [address] Care Team Providers Care Photovoltaic Installer Name Role Phone Janki George Primary Care Provider [phone] Allergies No known active allergies Social History [...] 08/26/2016 Influenza vaccine 11/19/2024 Covid-19 vaccine series ( - 2024- season) 2024 RSV Immunization (1 - 1-dose [...] age to complete this topic [facility] [place] [id number] [facility]ID [facility] [place] [id number] MEDICAID [id number] MEDICAID MOTOR VEHICLE GENERIC [id number] MEDICAID MOT[employer] VE[employer]ICLE GENERIC Care Teams Photovoltaic Installer Relationship Specialty Start Date End Date Janki George [address] [place] [phone] PCP - General 08/06/20
== END 2025-02-22 11:43 | disposition home or self-care (01) ==
LOC: HO.NEURO 11:42
DX: G56.03 Carpal tunnel syndrome, bilateral upper limbs (principal)
CPT/HCPCS: 95886; 95913

== ENCOUNTER → 2025-02-22 11:44 | Outpatient (BNV) | payer MEDICAID, SELFPAY | PROVIDERS: Visit Provider Psychiatry & Neurology Neurology | DX: G56.22 Lesion of ulnar nerve, left upper limb (principal) | CPT/HCPCS: 95886; 95912 ==